=== PATIENT | male | born 1950 | race American Indian/Alaskan Native ===

== ENCOUNTER 2020-07-01 19:29 | Inpatient (IN) | payer MEDICARE ==
[2020-07-01] MEDS ORDERED: SODIUM CHLORIDE 0.9% 1000 ML IV SOLN IV ONE (20:59)
--- NOTE | 2020-07-01 21:39 | Emergency Department Report ---
ED General Adult HPI - General Stated complaint: POSS SEPSIS PUI?: No Time Seen by Provider: 07/01/20 20:49 Source: patient, EMS Mode of arrival: Stretcher Limitations: No Limitations - History of Present Illness Initial comments: Chief complaint: Elevated white count, hypotension HPI this is a 70-year-old male with history of paraplegia, dementia, sacral decubitus ulcer, peripheral vascular disease, diastolic heart failure, chronic respiratory failure, deficiency anemia, hypertension, pressure ulcer right hip, pressure ulcer left elbow, encephalopathy, osteomyelitis of the sacral vertebral region, who presents with leukocytosis. According to CBC obtained today at [facility] WBC 43.2. Patient was in his normal state of health. He states that he has not had any recent illness or symptoms. Hypotension noted per EMS. Patient received 1.5 L of normal saline via EMS. -: This morning Consistency: constant Improves with: none Worsens with: none Associated Symptoms: other (Known history of pressure ulcers, patient denies new symptoms.) - Related Data Home Medications Medication Instructions Recorded Confirmed Last Taken Acetaminophen [Aphen] 325 mg PO PRN PRN 07/02/20 07/02/20 Unknown Amlodipine Besylate [Norvasc] 10 mg PO DAILY 07/02/20 07/02/20 Unknown Ascorbic Acid/Ascorbate Sodium 500 mg PO DAILY 07/02/20 07/02/20 Unknown [Vit C-Alyce Hips 500 mg Chew Tb] Aspirin [Adult Aspirin] 81 mg PO DAILY 07/02/20 07/02/20 Unknown AtorvaSTATin [Lipitor] 10 mg PO QHS 07/02/20 07/02/20 Unknown Ciprofloxacin HCl 500 mg PO Q8HR 07/02/20 07/02/20 Unknown Diclofenac 1% [Diclofenac 1% 1 applic TP Q6HR 07/02/20 07/02/20 Unknown topical gel] Epoetin Baljeet [Procrit] 3,000 unit SQ QWEEK 07/02/20 07/02/20 Unknown Heparin Sodium,Porcine [Heparin 5,000 unit SUB-Q Q8HR 07/02/20 07/02/20 Unknown Sodium] Ipratropium/Albuterol Sulfate 1 ampul IH Q6HR 07/02/20 07/02/20 Unknown [DUONEB *Not for PRN Use*] Lispro Insulin [HumaLOG] 0 unit SQ ACHS 07/02/20 07/02/20 Unknown Multivit-Minerals/Folic Acid 1 tab PO DAILY 07/02/20 07/02/20 Unknown [Adult One Daily Multivit Tab] PANTOPRAZOLE SODIUM (nf) [Protonix 40 mg PO QAM 07/02/20 07/02/20 Unknown GRANULES] Zinc Sulfate 220 mg PO DAILY 07/02/20 07/02/20 Unknown allopurinoL [Zyloprim] 100 mg PO QDAY 07/02/20 07/02/20 Unknown hydrALAZINE [Apresoline TAB] 100 mg PO TID 07/02/20 07/02/20 Unknown Allergies Allergy/AdvReac Type Severity Reaction Status Date / Time No Known Allergies Allergy Verified 07/01/20 23:23 ED Review of Systems ROS: Stated complaint: POSS SEPSIS Other details as noted in HPI Comment: Unobtainable due to pts medical conditions (Limited due to dementia) ED Past Medical Hx - Past Medical History Previous Medical History?: Yes Hx Hypertension: Yes Hx Congestive Heart Failure: Yes Additional medical history: Pressure ulcers to sacrum, hip, knee - Surgical History Additional Surgical History: Unable to obtain - Medications Home Medications: Home Medications Medication Instructions Recorded Confirmed Last Taken Type Acetaminophen [Aphen] 325 mg PO PRN PRN 07/02/20 07/02/20 Unknown History Amlodipine Besylate [Norvasc] 10 mg PO DAILY 07/02/20 07/02/20 Unknown History Ascorbic Acid/Ascorbate Sodium 500 mg PO DAILY 07/02/20 07/02/20 Unknown History [Vit C-Alyce Hips 500 mg Chew Tb] Aspirin [Adult Aspirin] 81 mg PO DAILY 07/02/20 07/02/20 Unknown History AtorvaSTATin [Lipitor] 10 mg PO QHS 07/02/20 07/02/20 Unknown History Ciprofloxacin HCl 500 mg PO Q8HR 07/02/20 07/02/20 Unknown History Diclofenac 1% [Diclofenac 1% 1 applic TP Q6HR 07/02/20 07/02/20 Unknown History topical gel] Epoetin Baljeet [Procrit] 3,000 unit SQ QWEEK 07/02/20 07/02/20 Unknown History Heparin Sodium,Porcine [Heparin 5,000 unit SUB-Q Q8HR 07/02/20 07/02/20 Unknown History Sodium] Ipratropium/Albuterol Sulfate 1 ampul IH Q6HR 07/02/20 07/02/20 Unknown History [DUONEB *Not for PRN Use*] Lispro Insulin [HumaLOG] 0 unit SQ ACHS 07/02/20 07/02/20 Unknown History Multivit-Minerals/Folic Acid 1 tab PO DAILY 07/02/20 07/02/20 Unknown History [Adult One Daily Multivit Tab] PANTOPRAZOLE SODIUM (nf) [Protonix 40 mg PO QAM 07/02/20 07/02/20 Unknown History GRANULES] Zinc Sulfate 220 mg PO DAILY 07/02/20 07/02/20 Unknown History allopurinoL [Zyloprim] 100 mg PO QDAY 07/02/20 07/02/20 Unknown History hydrALAZINE [Apresoline TAB] 100 mg PO TID 07/02/20 07/02/20 Unknown History ED Physical Exam - General Limitations: Other (Dementia) General appearance: alert, in no apparent distress, other (Appears chronically ill right lateral decubitus) - Head Head exam: Present: atraumatic, normocephalic - Eye Eye exam: Present: normal appearance - ENT ENT exam: Present: mucous membranes moist - Neck Neck exam: Present: normal inspection, full ROM - Respiratory Respiratory exam: Present: normal lung sounds bilaterally. Absent: respiratory distress, wheezes, rales, stridor - Cardiovascular Cardiovascular Exam: Present: regular rate, normal rhythm, normal heart sounds. Absent: rubs, gallop - GI/Abdominal GI/Abdominal exam: Present: soft. Absent: distended, tenderness, guarding, rebound - Extremities Exam Extremities exam: Present: other (Contracted bilateral lower extremities) - Neurological Exam Neurological exam: Present: alert, other (Oriented to name and place) - Psychiatric Psychiatric exam: Present: depressed, flat affect - Skin Skin exam: Present: other (Bandage on left elbow, large bandage sacral region, patient covered in stool, unable to access wound due to copious malodorous stool) ED Course Vital Signs 07/01/20 07/01/20 07/01/20 21:15 21:31 21:45 Pulse Rate 84 91 H 92 H Respiratory 20 19 17 Rate Blood Pressure 102/44 99/55 99/51 O2 Sat by Pulse 100 100 100 Oximetry 07/01/20 07/01/20 07/01/20 22:01 22:15 22:18 Pulse Rate 92 H 87 81 Respiratory 19 19 25 H Rate Blood Pressure 110/53 97/41 97/41 O2 Sat by Pulse 100 100 100 Oximetry 07/01/20 07/01/20 07/01/20 22:31 22:32 22:45 Pulse Rate 87 91 H 87 Respiratory 19 19 20 Rate Blood Pressure 96/48 97/41 102/54 O2 Sat by Pulse 100 100 100 Oximetry 07/01/20 07/01/20 07/01/20 22:57 23:01 23:15 Pulse Rate 80 93 H 105 H Respiratory 19 19 20 Rate Blood Pressure 102/54 105/48 107/54 O2 Sat by Pulse 99 100 100 Oximetry 07/01/20 07/01/20 07/01/20 23:17 23:31 23:45 Pulse Rate 92 H 91 H 97 H Respiratory 18 17 20 Rate Blood Pressure 107/54 103/53 109/53 O2 Sat by Pulse 100 100 100 Oximetry 07/02/20 07/02/20 07/02/20 00:01 00:15 00:30 Pulse Rate 81 99 H 90 Respiratory 20 24 21 Rate Blood Pressure 110/49 96/54 93/48 O2 Sat by Pulse 100 74 L 100 Oximetry 07/02/20 07/02/20 07/02/20 00:45 01:00 01:15 Pulse Rate 88 109 H 97 H Respiratory 25 H 22 23 Rate Blood Pressure 106/46 112/55 108/45 O2 Sat by Pulse 100 100 100 Oximetry 07/02/20 07/02/20 07/02/20 01:30 01:45 02:00 Pulse Rate 97 H 113 H 91 H Respiratory 24 21 23 Rate Blood Pressure 110/59 104/44 103/49 O2 Sat by Pulse 100 98 99 Oximetry 07/02/20 02:15 Pulse Rate 108 H Respiratory 20 Rate Blood Pressure 103/57 O2 Sat by Pulse 100 Oximetry - Central Line Placement Left IJ Consent Obtained: verbal consent, emergent situation Time Out Performed: Yes Patient Placed on Monitor/Pulse Ox: Yes Prep: mask, gown, gloves Central Line Prep: Chlorhexidine scrub Local Anesthesia Used: Lidocaine 1% Ultrasound Used for Placement: Yes Patient Tolerated Procedure: other Complications: other (unable to access vein, no venous return, procedure discontinued without success) ED Medical Decision Making - Lab Data Result diagrams: 07/04/20 04:58 07/05/20 05:59 - EKG Data EKG shows normal: axis Rate: tachycardia - EKG Data 07/02/20 00:22 EKG obtained 0018 EKG interpreted by me Multifocal atrial tachycardia versus atrial fibrillation ventricular rate 100 bpm normal axis no ST elevation prolonged QTC - Radiology Data Radiology results: report reviewed Patient Name: EUGENIA LIZAMA Gender: Male Date of : 1950 Referring Provider: REDD DA SILVA Organization: [facility] Accession Number: [id number] Requested Date: July 01, 2020 20:49 Report Status: Final Requested Procedure: 1 Procedure Description: XR chest 1V ap Modality: XR Findings Reporting MD: Bryce Jacques Dictation Time: July 01, 2020 21:29 Syrup Mixer Assistant: Not available Zoo Director Date: CHEST 1 VIEW 07/01/2020 8:57 PM INDICATION / CLINICAL INFORMATION: hypotension sepsis. COMPARISON: None available. FINDINGS: The study is minimally limited secondary to rotation. SUPPORT DEVICES: None. HEART / MEDIASTINUM: Mild enlargement of the cardiac silhouette. LUNGS / PLEURA: Moderate pleural parenchymal opacification noted in the right lung base. The left lung field is clear. No pneumothorax. ADDITIONAL FINDINGS: Gas-filled and distended bowel loops are noted over the upper abdomen. IMPRESSION: 1. Moderate pleural parenchymal opacification in the right lung base likely represents pleural effusion and associated compressive atelectasis. Clinical correlation rule out a superimposed infectious process is recommended. Patient Name: EUGENIA LIZAMA Gender: Male Date of : 1950 Referring Provider: REDD DA SILVA Organization: [facility] Accession Number: [id number] Requested Date: July 01, 2020 22:27 Report Status: Final Requested Procedure: 1 Procedure Description: CT chest wo con Modality: CT Findings Reporting MD: Wojciech Freire Dictation Time: July 01, 2020 22:20 Syrup Mixer Assistant: Not available Zoo Director Date: CT CHEST, ABDOMEN, AND PELVIS WITHOUT CONTRAST INDICATION / CLINICAL INFORMATION: sepsis. TECHNIQUE: Axial CT images were obtained through the chest, abdomen, and pelvis without contrast. All CT scans at this location are performed using CT dose reduction for ALARA by means of automated exposure control. COMPARISON: None available. FINDINGS: HEART/VASCULAR STRUCTURES: Coronary artery calcification. MEDIASTINUM / CARMEN: No significant abnormality. PLEURA: Small bilateral effusions right greater than left. No pneumothorax. LUNGS: Moderate volume loss/atelectasis right chest. ADDITIONAL CHEST FINDINGS: None. LIVER: No significant abnormality. GALLBLADDER: Calcified gallstone. BILE DUCTS: No significant abnormality. PANCREAS: No significant abnormality. SPLEEN: No significant abnormality. ADRENALS: No significant abnormality. RIGHT KIDNEY / URETER: 7 mm nonobstructing stone at the renal pelvis. LEFT KIDNEY / URETER: No significant abnormality. STOMACH and SMALL BOWEL: Mild small bowel distention. COLON: Prominent colonic thickening is greater distally. APPENDIX: Nonvisualized. PERITONEUM: Mild ascites is scattered diffusely. No free air. No fluid collection. LYMPH NODES: No significant adenopathy. VASCULAR STRUCTURES: No significant abnormality. URINARY BLADDER: Symmetric bladder thickening. REPRODUCTIVE ORGANS: No significant abnormality. ADDITIONAL FINDINGS: Patient severely contracted limiting evaluation. Mild soft tissue anasarca. Sacral decubitus ulcer. 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 Mild cortical irregularity inferior sacrum on the right. IMPRESSION: 1. Chronic colitis greater distally. 2. Mild ascites, pleural fluid and soft tissue anasarca. 3. Calcified gallstone. [facility] [address] , [address] [place] [address] P [phone] F [phone] [facility] - Report exported on July 01, 2020 22: 58:66 -[id number] - Page 2 of 2 4. 7 mm nonobstructing left renal stone. 5. Sacral decubitus ulcer with suspected underlying osteomyelitis. - Medical Decision Making Septic Shock: severe leukocytosis and hypotension, IVF and IV abx corrected hypotension. Source: UTI, infected sacral decubitus Ulcer, colitis, broad- spectrum antibiotics cefepime vancomycin metronidazole initiated in the ED, first CVL at L left IJ attempt unsuccessful, patient refused further attempts at CVL insertion C. difficile colitis suspected: patient has had 3 large stools in the ED FRED: vasomotor nephropathy due to sepsis type 2 NSTEMI: correction of sepsis indicated Multifocal atrial tachycardia versus atrial fibrillation: Suspect rhythm will resolve once Sepsis and hypovolemia corrected Critical Care Time: Yes Critical care time in (mins) excluding proc time.: 40 Critical care attestation.: If time is entered above; I have spent that time in minutes in the direct care of this critically ill patient, excluding procedure time. 40 minutes of critical care time excluding procedures were used in the care of the patient. I came immediately to the bedside upon patient's arrival. I obtained history from EMS at the bedside. I discussed treatment plan with the nursing team members. I reviewed electronic record. I reviewed documentation from [facility]. Patient required multiple interventions and reassessments. ED Disposition Clinical Impression: Septic shock, Sacral osteomyelitis, Complicated urinary tract infection, FRED (acute kidney injury), NSTEMI (non-ST elevated myocardial infarction), C. difficile colitis, Multifocal atrial tachycardia Disposition: OP ADMIT IP TO THIS HOSP Is pt being admited?: Yes Does the pt Need Aspirin: No Condition: Fair
[2020-07-01 21:43] LABS: Hematocrit 28.3 % (35.5-45.6); Hemoglobin 8.5 gm/dl (11.8-15.2); Mean Corpuscular HGB Conc 30 % (32-34); Mean Corpuscular Volume 93 fl (84-94); Platelet Count 427 K/mm3 (140-440); Red Blood Count 3.05 M/mm3 (3.65-5.03); Red Cell Distribution Width 19.7 % (13.2-15.2)
[2020-07-01] MEDS ORDERED: CEFEPIME/NS 2 GM/100 ML 2 GM/100 ML BAG IV ONE (22:00)
[2020-07-01 22:08] LABS: Albumin 1.8 g/dL (3.9-5); Calcium 7.3 mg/dL (8.4-10.2)
--- NOTE | 2020-07-01 22:33 | XRay Report ---
CHEST 1 VIEW 07/01/2020 8:57 PM INDICATION / CLINICAL INFORMATION: hypotension sepsis. COMPARISON: None available. FINDINGS: The study is minimally limited secondary to rotation. SUPPORT DEVICES: None. HEART / MEDIASTINUM: Mild enlargement of the cardiac silhouette. LUNGS / PLEURA: Moderate pleural parenchymal opacification noted in the right lung base. The left miki g field is clear. No pneumothorax. ADDITIONAL FINDINGS: Gas-filled and distended bowel loops are noted over the upper abdomen. IMPRESSION: 1. Moderate pleural parenchymal opacification in the right lung base likely represents pleural effusi on and associated compressive atelectasis. Clinical correlation rule out a superimposed infectious pr ocess is recommended. Signer Name: Bryce Jacques MD Signed: 07/01/2020 10:29 PM Workstation Name: [id number]
--- NOTE | 2020-07-01 23:24 | Cat Scan Report ---
CT CHEST, ABDOMEN, AND PELVIS WITHOUT CONTRAST INDICATION / CLINICAL INFORMATION: sepsis. TECHNIQUE: Axial CT images were obtained through the chest, abdomen, and pelvis without contrast. All CT scans at this location are performed using CT dose reduction for ALARA by means of automated expo sure control. COMPARISON: None available. FINDINGS: HEART/VASCULAR STRUCTURES: Coronary artery calcification. MEDIASTINUM / CARMEN: No significant abnormality. PLEURA: Small bilateral effusions right greater than left. No pneumothorax. LUNGS: Moderate volume loss/atelectasis right chest. ADDITIONAL CHEST FINDINGS: None. LIVER: No significant abnormality. GALLBLADDER: Calcified gallstone. BILE DUCTS: No significant abnormality. PANCREAS: No significant abnormality. SPLEEN: No significant abnormality. ADRENALS: No significant abnormality. RIGHT KIDNEY / URETER: 7 mm nonobstructing stone at the renal pelvis. LEFT KIDNEY / URETER: No significant abnormality. STOMACH and SMALL BOWEL: Mild small bowel distention. COLON: Prominent colonic thickening is greater distally. APPENDIX: Nonvisualized. PERITONEUM: Mild ascites is scattered diffusely. No free air. No fluid collection. LYMPH NODES: No significant adenopathy. VASCULAR STRUCTURES: No significant abnormality. URINARY BLADDER: Symmetric bladder thickening. REPRODUCTIVE ORGANS: No significant abnormality. ADDITIONAL FINDINGS: Patient severely contracted limiting evaluation. Mild soft tissue anasarca. Sacr al decubitus ulcer. 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 Mild cortic al irregularity inferior sacrum on the right. IMPRESSION: 1. Chronic colitis greater distally. 2. Mild ascites, pleural fluid and soft tissue anasarca. 3. Calcified gallstone. 4. 7 mm nonobstructing left renal stone. 5. Sacral decubitus ulcer with suspected underlying osteomyelitis. Signer Name: Wojciech Freire MD Signed: 07/01/2020 11:20 PM Workstation Name: [id number]
[2020-07-02 00:04] LABS: Bacteria,Urine 2+ /HPF (Negative); Bilirubin,Urine NEG (Negative); Blood,Urine SM (Negative); Color,Urine Yellow (Yellow); Mucus,Urine 2+ /HPF; Urobilinogen,Urine < 2.0 mg/dL (<2.0)
[2020-07-02] MEDS ORDERED: SODIUM CHLORIDE 0.9% 1000 ML 1,000 ML IV ONE ×3 (00:05→13:15)
[2020-07-02] MEDS ORDERED: metroNIDAZOLE/NS 500 MG/100 ML 500 MG/100 ML BAG IV ONE (00:05)
[2020-07-02] MEDS ORDERED: VANCOMYCIN 1,250 MG in SODIUM CHLORIDE 0.9% 250ML 250 ML IV ONE (00:05)
[2020-07-02 00:12] LABS: WBC,Urine > 182.0 /HPF (0.0-6.0)
[2020-07-02] MEDS ORDERED: VANCOMYCIN PHARMACY TO DOSE IV SCH ×2 (01:00→06:00)
[2020-07-02] MEDS ORDERED: MAGNESIUM HYDROXIDE (MOM) ORAL LIQD UDC PO PRN (01:22)
[2020-07-02] MEDS ORDERED: ONDANSETRON 4 MG/2 ML INJ IV PRN (01:22)
[2020-07-02] MEDS ORDERED: MORPHINE 2 MG/1 ML INJ IV PRN (01:22)
[2020-07-02 01:31] LABS: RBC Morphology Normal; Total Cells Counted 100
--- NOTE | 2020-07-02 01:34 | History and Physical Report ---
History of Present Illness Date of examination: 07/02/20 Date of admission: 07/02/2020 Chief complaint: Abnormal labs History of present illness: 70-year-old -[place]ian male resident of care home with known history of paraplegia, dementia, sacral decubitus ulcer, peripheral vascular disease, diastolic heart failure, anemia, hypertension and osteomyelitis of the sacral vertebral region presenting in the emergency room today with abnormal labs from the care home. Patient was noted to have had leukocytosis of 43.2. Patient is noted good historian most of the history was gotten from the ER staff. En route to the hospital by EMS patient was said to be hypotensive and received 1.5 L of normal saline. Upon arrival in the emergency room patient received further boluses of IV fluid with some improvement in his blood pressure. During the course of his stay in the emergency room, patient had 4 large loose stools. Work-up in the emergency room today reveals leukocytosis of 47.5, hemoglobin of 8.5, CO2 of 10, troponin of 0.149, BUN of 51 and creatinine of 3.1. Urinalysis was significant for UTI. CT of the abdomen and pelvis reveals chronic colitis greater distally, mild ascites, pleural fluid and soft tissue anasarca. Calcified gallstone, 7 mm nonobstructive left renal stone. Sacral decubitus ulcer with suspected underlying osteomyelitis. Patient is being admitted with septic shock, acute renal failure, UTI and colitis. Past History Past Medical History: anemia, heart failure, other (Dementia, paraplegia, peripheral vascular disease, chronic respiratory failure, chronic anemia, chronic decubitus ulcers in the right hip and left elbow, osteomyelitis of the sacral vertebra) Past Surgical History: Other (Unable to obtain) Social history: other (Patient resides in a care home) Family history: other (Unknown) Medications and Allergies Allergies Allergy/AdvReac Type Severity Reaction Status Date / Time No Known Allergies Allergy Verified 07/01/20 23:23 Home Medications Medication Instructions Recorded Confirmed Last Taken Type Acetaminophen [Aphen] 325 mg PO PRN PRN 07/02/20 07/02/20 Unknown History Amlodipine Besylate [Norvasc] 10 mg PO DAILY 07/02/20 07/02/20 Unknown History Ascorbic Acid/Ascorbate Sodium 500 mg PO DAILY 07/02/20 07/02/20 Unknown History [Vit C-Alyce Hips 500 mg Chew Tb] Aspirin [Adult Aspirin] 81 mg PO DAILY 07/02/20 07/02/20 Unknown History AtorvaSTATin [Lipitor] 10 mg PO QHS 07/02/20 07/02/20 Unknown History Ciprofloxacin HCl 500 mg PO Q8HR 07/02/20 07/02/20 Unknown History Diclofenac 1% [Diclofenac 1% 1 applic TP Q6HR 07/02/20 07/02/20 Unknown History topical gel] Epoetin Baljeet [Procrit] 3,000 unit SQ QWEEK 07/02/20 07/02/20 Unknown History Heparin Sodium,Porcine [Heparin 5,000 unit SUB-Q Q8HR 07/02/20 07/02/20 Unknown History Sodium] Ipratropium/Albuterol Sulfate 1 ampul IH Q6HR 07/02/20 07/02/20 Unknown History [DUONEB *Not for PRN Use*] Lispro Insulin [HumaLOG] 0 unit SQ ACHS 07/02/20 07/02/20 Unknown History Multivit-Minerals/Folic Acid 1 tab PO DAILY 07/02/20 07/02/20 Unknown History [Adult One Daily Multivit Tab] PANTOPRAZOLE SODIUM (nf) [Protonix 40 mg PO QAM 07/02/20 07/02/20 Unknown History GRANULES] Zinc Sulfate 220 mg PO DAILY 07/02/20 07/02/20 Unknown History allopurinoL [Zyloprim] 100 mg PO QDAY 07/02/20 07/02/20 Unknown History hydrALAZINE [Apresoline TAB] 100 mg PO TID 07/02/20 07/02/20 Unknown History Active Meds: Active Medications Heparin Sodium (Porcine) (Heparin 5,000 Unit/1 Ml Vial) 5,000 unit SUB-Q Q8HR HARLEY Vancomycin HCl 1,250 mg/ (Sodium Chloride) 275 mls @ 183.333 mls/hr IV ONCE ONE; Protocol Stop: 07/02/20 01:34 Sodium Chloride (Nacl 0.9% 1000 Ml) 1,000 mls @ 999 mls/hr IV BOLUS ONE Stop: 07/02/20 02:13 Sodium Chloride (Nacl 0.9% 1000 Ml) 1,000 mls @ 150 mls/hr IV DIRECT HARLEY Magnesium Hydroxide (Magnesium Hydroxide (Mom) Oral Liqd Udc) 30 ml PO Q4H PRN PRN Reason: Constipation Morphine Sulfate (Morphine 2 Mg/1 Ml Inj) 2 mg IV Q4H PRN PRN Reason: Pain, Moderate (4-6) Ondansetron HCl (Ondansetron 4 Mg/2 Ml Inj) 4 mg IV Q8H PRN PRN Reason: Nausea And Vomiting Sodium Chloride (Sodium Chloride 0.9% 10 Ml Flush Syringe) 10 ml IV BID HARLEY Sodium Chloride (Sodium Chloride 0.9% 10 Ml Flush Syringe) 10 ml IV PRN PRN PRN Reason: LINE FLUSH Review of Systems ROS unobtainable: due to mental status Exam - Constitutional Vitals: Temp Pulse Resp BP Pulse Ox 88 25 H 106/46 100 07/02/20 00:45 07/02/20 00:45 07/02/20 00:45 07/02/20 00:45 General appearance: Present: no acute distress, well-nourished, other (Appears ill looking) - EENT Eyes: Present: PERRL, EOM intact. Absent: scleral icterus ENT: hearing intact, clear oral mucosa, dentition normal - Neck Neck: Present: supple, normal ROM - Respiratory Respiratory: bilateral: CTA - Cardiovascular Rhythm: regular Heart Sounds: Present: S1 & S2. Absent: gallop, systolic murmur, diastolic murmur, rub, click - Extremities Extremities: no ischemia, pulses intact, pulses symmetrical, No edema, normal temperature, normal color, abnormal (Contracted bilateral lower extremities) Peripheral Pulses: within normal limits - Abdominal General gastrointestinal: Present: soft, non-tender, non-distended, normal bowel sounds. Absent: mass - Integumentary Integumentary: Present: warm, dry, decreased turgor - Musculoskeletal Musculoskeletal: strength equal bilaterally - Psychiatric Psychiatric: cooperative, depressed, other (Flat affect) - Neurologic Neurologic: no focal deficits, moves all extremities, other (Alert and oriented x2 - only to name and place) - Additional findings Additional findings: Skin:Dressing on left elbow, large bandage sacral region, patient covered in stool, unable to access wound due to copious malodorous stool. HEART Score - HEART Score Troponin: Troponin T 0.149 ng/mL (0.00-0.029) H* 07/01/20 21:00 Results - Labs CBC & Chem 7: 07/01/20 21:00 07/01/20 21:00 Labs: Abnormal lab results 05/10/21 05/10/21 05/10/21 Range/Units 21:00 21:00 23:17 WBC 47.5 H* (4.5-11.0) K/mm3 RBC 3.05 L (3.65-5.03) M/mm3 Hgb 8.5 L (11.8-15.2) gm/dl Hct 28.3 L (35.5-45.6) % MCHC 30 L (32-34) % RDW 19.7 H (13.2-15.2) % Sodium 135 L (137-145) mmol/L Chloride 109.5 H (98-107) mmol/L Carbon Dioxide 10 L (22-30) mmol/L BUN 51 H (9-20) mg/dL Creatinine 3.1 H (0.8-1.3) mg/dL Glucose 114 H (75-100) mg/dL Calcium 7.3 L (8.4-10.2) mg/dL Troponin T 0.149 H* (0.00-0.029) ng/mL Total Protein 5.6 L (6.3-8.2) g/dL Albumin 1.8 L (3.9-5) g/dL Urine WBC (Auto) > 182.0 H (0.0-6.0) /HPF Assessment and Plan - Patient Problems (1) Septic shock Current Visit: Yes Status: Acute Plan to address problem: Possibly secondary to underlying UTI and colitis. Patient admitted and placed on IV fluid. He has been started on empiric IV antibiotics We will place consult to infectious disease for further evaluation and recommendation. Consult also placed to fast food shift lead. (2) Complicated urinary tract infection Current Visit: Yes Status: Acute Plan to address problem: We will continue on empiric IV antibiotics. Will await urine culture results. (3) FRED (acute kidney injury) Current Visit: Yes Status: Acute Plan to address problem: Possibly prerenal. We will continue on IV fluid hydration. Consult placed to nephrology for evaluation. We will monitor BUN and creatinine. (4) C. difficile colitis Current Visit: Yes Status: Acute (5) Multifocal atrial tachycardia Current Visit: Yes Status: Acute Plan to address problem: We will continue to monitor on telemetry. (6) NSTEMI (non-ST elevated myocardial infarction) Current Visit: Yes Status: Acute Plan to address problem: Possibly type II troponin leak Consult will be placed to cardiology for evaluation. (7) Sacral osteomyelitis Current Visit: Yes Status: Acute Plan to address problem: Possibly chronic. We will continue on empiric IV antibiotics. Will await infectious disease evaluation. (8) DVT prophylaxis Current Visit: Yes Status: Acute Plan to address problem: Patient placed on subcutaneous heparin. (9) Full code status Current Visit: Yes Status: Acute Plan to address problem: Patient is full code.
--- NOTE | 2020-07-02 01:50 | XRay Report ---
CHEST 1 VIEW 07/02/2020 12:36 AM INDICATION / CLINICAL INFORMATION: left IJ CVL insertion attempt. COMPARISON: Earlier the same day. FINDINGS: SUPPORT DEVICES: No central line. Negative for pneumothorax. HEART / MEDIASTINUM: No significant abnormality. LUNGS / PLEURA: Mild increasing atelectasis right base. No pleural effusion. ADDITIONAL FINDINGS: No significant additional findings. IMPRESSION: 1. Mild increasing atelectasis right base. 2. No pneumothorax. Signer Name: Wojciech Freire MD Signed: 07/02/2020 1:46 AM Workstation Name: [id number]
[2020-07-02 02:23] LABS: Chol/HDL Ratio 1.67 %
[2020-07-02] MEDS: SODIUM CHLORIDE 0.9% 1000 ML 1,000 ML IV SCH ×4 (04:00→20:42)
[2020-07-02] MEDS ORDERED: CEFEPIME/NS 2 GM/100 ML 2 GM/100 ML BAG IV SCH (06:00)
[2020-07-02] MEDS: HEPARIN 5,000 UNIT/1 ML VIAL SUB-Q SCH ×3 (07:18→21:00)
[2020-07-02] MEDS: metroNIDAZOLE/NS 500 MG/100 ML 500 MG/100 ML BAG IV SCH ×2 (07:19→15:43)
--- NOTE | 2020-07-02 08:32 | Consultation ---
History of Present Illness - Reason for Consult acute renal failure - History of Present Illness 70-year-old -Mexican male with a history of dementia coming in from a senior care facility presented to the emergency department secondary to worsening weakness. Was found to be hypotensive and requiring multiple IV fluid boluses both in transit as well as in the emergency department. Nephrology con sulted secondary to labs indicating acute kidney injury. Urinalysis indicating a urinary tract infection. He also apparently had issues with 2 loose bowel movements in the emergency department. CT scan of the abdomen and pelvis was done without contrast indicating evidence of what seems to be chronic colitis. Nephrology consulted again at this time for management of acute renal failure. 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 and left elbow, osteomyelitis of the sacral vertebra) Past Surgical History: Other (Unable to obtain) Social history: other (Patient resides in a senior care) Family history: other (Unknown) Medications and Allergies Allergies Allergy/AdvReac Type Severity Reaction Status Date / Time No Known Allergies Allergy Verified 07/01/20 23:23 Home Medications Medication Instructions Recorded Confirmed Last Taken Type Acetaminophen [Aphen] 325 mg PO PRN PRN 07/02/20 07/02/20 Unknown History Amlodipine Besylate [Norvasc] 10 mg PO DAILY 07/02/20 07/02/20 Unknown History Ascorbic Acid/Ascorbate Sodium 500 mg PO DAILY 07/02/20 07/02/20 Unknown History [Vit C-Alyce Hips 500 mg Chew Tb] Aspirin [Adult Aspirin] 81 mg PO DAILY 07/02/20 07/02/20 Unknown History AtorvaSTATin [Lipitor] 10 mg PO QHS 07/02/20 07/02/20 Unknown History Ciprofloxacin HCl 500 mg PO Q8HR 07/02/20 07/02/20 Unknown History Diclofenac 1% [Diclofenac 1% 1 applic TP Q6HR 07/02/20 07/02/20 Unknown History topical gel] Epoetin Baljeet [Procrit] 3,000 unit SQ QWEEK 07/02/20 07/02/20 Unknown History Heparin Sodium,Porcine [Heparin 5,000 unit SUB-Q Q8HR 07/02/20 07/02/20 Unknown History Sodium] Ipratropium/Albuterol Sulfate 1 ampul IH Q6HR 07/02/20 07/02/20 Unknown History [DUONEB *Not for PRN Use*] Lispro Insulin [HumaLOG] 0 unit SQ ACHS 07/02/20 07/02/20 Unknown History Multivit-Minerals/Folic Acid 1 tab PO DAILY 07/02/20 07/02/20 Unknown History [Adult One Daily Multivit Tab] PANTOPRAZOLE SODIUM (nf) [Protonix 40 mg PO QAM 07/02/20 07/02/20 Unknown History GRANULES] Zinc Sulfate 220 mg PO DAILY 07/02/20 07/02/20 Unknown History allopurinoL [Zyloprim] 100 mg PO QDAY 07/02/20 07/02/20 Unknown History hydrALAZINE [Apresoline TAB] 100 mg PO TID 07/02/20 07/02/20 Unknown History Active Meds: Active Medications Heparin Sodium (Porcine) (Heparin 5,000 Unit/1 Ml Vial) 5,000 unit SUB-Q Q8HR HARLEY Last Admin: 07/02/20 07:18 Dose: 5,000 unit Documented by: Sodium Chloride (Nacl 0.9% 1000 Ml) 1,000 mls @ 150 mls/hr IV DIRECT HARLEY Last Admin: 07/02/20 04:00 Dose: 150 mls/hr Documented by: Metronidazole (Flagyl 500 Mg/100 Ml) 500 mg in 100 mls @ 100 mls/hr IV Q8H HARLEY; Protocol Last Admin: 07/02/20 07:19 Dose: 100 mls/hr Documented by: Cefepime HCl (Cefepime/Ns 2 Gm/100 Ml) 2 gm in 100 mls @ 200 mls/hr IV Q24H HARLEY; Protocol Magnesium Hydroxide (Magnesium Hydroxide (Mom) Oral Liqd Udc) 30 ml PO Q4H PRN PRN Reason: Constipation Morphine Sulfate (Morphine 2 Mg/1 Ml Inj) 2 mg IV Q4H PRN PRN Reason: Pain, Moderate (4-6) Ondansetron HCl (Ondansetron 4 Mg/2 Ml Inj) 4 mg IV Q8H PRN PRN Reason: Nausea And Vomiting Sodium Chloride (Sodium Chloride 0.9% 10 Ml Flush Syringe) 10 ml IV BID HARLEY Sodium Chloride (Sodium Chloride 0.9% 10 Ml Flush Syringe) 10 ml IV PRN PRN PRN Reason: LINE FLUSH Review of Systems ROS unobtainable: due to mental status Exam - Vital Signs Vital signs: Vital Signs Pulse Resp BP Pulse Ox 84 20 102/44 100 07/01/20 21:15 07/01/20 21:15 07/01/20 21:15 07/01/20 21:15 - General Appearance General appearance: well-developed EENT: ATNC Neck: Present: neck supple Respiratory: Clear to Ascultation Heart: regular Gastrointestinal: Present: normal Integumentary: no rash Neurologic: other (Oriented to person, place) Musculoskeletal: Present: deferred Psychiatric: cooperative Results - Lab Results 07/01/20 21:00 07/01/20 21:00 Most recent lab results Calcium 7.3 mg/dL (8.4-10.2) L 07/01/20 21:00 - Image Kidney/bladder ultrasound: pending Assessment and Plan - Patient Problems (1) FRED (acute kidney injury) Current Visit: Yes Status: Acute Plan to address problem: Likely in the setting of prerenal injury in the setting of urinary tract infect ion and possible exacerbation of colitis with previous history of C. difficile colitis per nursing staff. Agree with current regimen with aggressive IV fluid hydration and hemodynamic management. Antibiotics to target urinary tract infection. Will obtain a renal ultrasound along with urine electrolytes for further evaluation. Please avoid all nephrotoxins at this time given his acute kidney injury. We will be monitoring carefully. We will need to make sure that his renal toe pressures remain above 65 mmHg which to have been at this time. He has not required pressors at this time. (2) Metabolic acidosis Current Visit: Yes Status: Acute Plan to address problem: In the setting of acute kidney injury with questionable history of diarrheal symptoms and apparently finding of colitis that is chronic in nature on his most recent CT scan. We are maintaining patient on IV fluid hydration and would recommend rechecking labs as anticipate improvement with improved hydration status. (3) C. difficile colitis Current Visit: Yes Status: Acute Plan to address problem: C. difficile studies are pending at this time. She is on contact precaution at this time. Per nursing staff since coming up to be ICU he really has not had significant bowel movement. CT scan of the abdomen did show what was read as chronic colitis. (4) Complicated urinary tract infection Current Visit: Yes Status: Acute Plan to address problem: Please ensure that antibiotics are dosed appropriately for his decreased renal function.
--- NOTE | 2020-07-02 10:26 | Progress Note ---
Assessment and Plan Assessment and plan: Sepsis. Acute kidney injury. Urinary tract infection. Colitis. Metabolic acidosis. Elevated troponin. 07/02/2020. Continue IV fluid hydration. Etiology of acute kidney injury likely secondary to vasomotor nephropathy/prerenal injury. Continue aggressive IV fluid hydration. Follow-up renal ultrasound. Nephrology following. Follow-up stool studies for colitis. Await ID recommendations for IV antibiotics. Consult cardiology for elevated troponin. History Interval history: 70-year-old -[place] male with a history of dementia coming in from a [facility] facility presented to the emergency department secondary to worsening weakness. Was found to be hypotensive and requiring multiple IV fluid boluses both in transit as well as in the emergency department. Nephrology consulted secondary to labs indicating acute kidney injury. Urinalysis indicating a urinary tract infection. He also apparently had issues with 2 loose bowel movements in the emergency department. CT scan of the abdomen and pelvis was done without contrast indicating evidence of what seems to be chronic colitis. Nephrology consulted again at this time for management of acute renal failure. Hospitalist Physical - Constitutional Vitals: Temp Pulse Resp BP Pulse Ox 97.4 F L 104 H 20 90/50 100 07/02/20 04:00 07/02/20 09:49 07/02/20 08:00 07/02/20 08:00 07/02/20 08:00 General appearance: Present: no acute distress, well-nourished, other (Appears ill looking) - EENT Eyes: Present: PERRL, EOM intact ENT: hearing intact, clear oral mucosa, dentition normal - Neck Neck: Present: supple, normal ROM - Respiratory Respiratory effort: normal Respiratory: bilateral: CTA - Cardiovascular Rhythm: regular Heart Sounds: Present: S1 & S2. Absent: gallop, rub - Extremities Extremities: no ischemia, No edema, Full ROM - Abdominal General gastrointestinal: soft, non-tender, non-distended, normal bowel sounds - Integumentary Integumentary: Present: clear, warm, dry - Neurologic Neurologic: CNII-XII intact, moves all extremities HEART Score - HEART Score Troponin: Troponin T 0.149 ng/mL (0.00-0.029) H* 07/01/20 21:00 Results - Labs CBC & Chem 7: 07/01/20 21:00 07/01/20 21:00 Labs: Laboratory Last Values WBC 47.5 K/mm3 (4.5-11.0) H* 07/01/20 21:00 RBC 3.05 M/mm3 (3.65-5.03) L 07/01/20 21:00 Hgb 8.5 gm/dl (11.8-15.2) L 07/01/20 21:00 Hct 28.3 % (35.5-45.6) L 07/01/20 21:00 MCV 93 fl (84-94) 07/01/20 21:00 MCH 28 pg (28-32) 07/01/20 21:00 MCHC 30 % (32-34) L 07/01/20 21:00 RDW 19.7 % (13.2-15.2) H 07/01/20 21:00 Plt Count 427 K/mm3 (140-440) 07/01/20 21:00 Add Manual Diff Complete 07/01/20 21:00 Total Counted 100 07/01/20 21:00 Seg Neutrophils % Log Sorting Supervisor 07/01/20 21:00 Seg Neuts % (Manual) 90.0 % (40.0-70.0) H 07/01/20 21:00 Lymphocytes % (Manual) 6.0 % (13.4-35.0) L 07/01/20 21:00 Monocytes % (Manual) 4.0 % (0.0-7.3) 07/01/20 21:00 Nucleated RBC % Not Reportable 07/01/20 21:00 Seg Neutrophils # Man 42.8 K/mm3 (1.8-7.7) H 07/01/20 21:00 Band Neutrophils # 0.0 K/mm3 07/01/20 21:00 Lymphocytes # (Manual) 2.9 K/mm3 (1.2-5.4) 07/01/20 21:00 Abs React Lymphs (Man) 0.0 K/mm3 07/01/20 21:00 Monocytes # (Manual) 1.9 K/mm3 (0.0-0.8) H 07/01/20 21:00 Eosinophils # (Manual) 0.0 K/mm3 (0.0-0.4) 07/01/20 21:00 Basophils # (Manual) 0.0 K/mm3 (0.0-0.1) 07/01/20 21:00 Metamyelocytes # 0.0 K/mm3 07/01/20 21:00 Myelocytes # 0.0 K/mm3 07/01/20 21:00 Promyelocytes # 0.0 K/mm3 07/01/20 21:00 Blast Cells # 0.0 K/mm3 07/01/20 21:00 WBC Morphology Not Reportable 07/01/20 21:00 Hypersegmented Neuts Not Reportable 07/01/20 21:00 Hyposegmented Neuts Not Reportable 07/01/20 21:00 Hypogranular Neuts Not Reportable 07/01/20 21:00 Smudge Cells Not Reportable 07/01/20 21:00 Toxic Granulation Not Reportable 07/01/20 21:00 Toxic Vacuolation Not Reportable 07/01/20 21:00 Dohle Bodies Not Reportable 07/01/20 21:00 Pelger-Huet Anomaly Not Reportable 07/01/20 21:00 Jeanna Rods Not Reportable 07/01/20 21:00 Platelet Estimate Not Reportable 07/01/20 21:00 Clumped Platelets Not Reportable 07/01/20 21:00 Plt Clumps, EDTA Not Reportable 07/01/20 21:00 Large Platelets Not Reportable 07/01/20 21:00 Giant Platelets Not Reportable 07/01/20 21:00 Platelet Satelliting Not Reportable 07/01/20 21:00 Plt Morphology Comment Not Reportable 07/01/20 21:00 RBC Morphology Normal 07/01/20 21:00 Dimorphic RBCs Not Reportable 07/01/20 21:00 Polychromasia Not Reportable 07/01/20 21:00 Hypochromasia Not Reportable 07/01/20 21:00 Poikilocytosis Not Reportable 07/01/20 21:00 Anisocytosis Not Reportable 07/01/20 21:00 Microcytosis Not Reportable 07/01/20 21:00 Macrocytosis Not Reportable 07/01/20 21:00 Spherocytes Not Reportable 07/01/20 21:00 Pappenheimer Bodies Not Reportable 07/01/20 21:00 Sickle Cells Not Reportable 07/01/20 21:00 Target Cells Not Reportable 07/01/20 21:00 Tear Drop Cells Not Reportable 07/01/20 21:00 Ovalocytes Not Reportable 07/01/20 21:00 Helmet Cells Not Reportable 07/01/20 21:00 [place] Bodies Not Reportable 07/01/20 21:00 [place] Rings Not Reportable 07/01/20 21:00 Jennifer Cells Not Reportable 07/01/20 21:00 Bite Cells Not Reportable 07/01/20 21:00 Crenated Cell Not Reportable 07/01/20 21:00 Elliptocytes Not Reportable 07/01/20 21:00 Acanthocytes (Spur) Not Reportable 07/01/20 21:00 Rouleaux Not Reportable 07/01/20 21:00 Hemoglobin C Crystals Not Reportable 07/01/20 21:00 Schistocytes Not Reportable 07/01/20 21:00 Malaria parasites Not Reportable 07/01/20 21:00 Raheem Bodies Not Reportable 07/01/20 21:00 Hem Pathologist Commnt Sent to pathology 07/01/20 21:00 Sodium 135 mmol/L (137-145) L 07/01/20 21:00 Potassium 3.9 mmol/L (3.6-5.0) 07/01/20 21:00 Chloride 109.5 mmol/L (98-107) H 07/01/20 21:00 Carbon Dioxide 10 mmol/L (22-30) L 07/01/20 21:00 Anion Gap 19 mmol/L 07/01/20 21:00 BUN 51 mg/dL (9-20) H 07/01/20 21:00 Creatinine 3.1 mg/dL (0.8-1.3) H 07/01/20 21:00 Estimated GFR 24 ml/min 07/01/20 21:00 BUN/Creatinine Ratio 16 % 07/01/20 21:00 Glucose 114 mg/dL (75-100) H 07/01/20 21:00 Lactic Acid 1.60 mmol/L (0.7-2.0) 07/01/20 23:35 Calcium 7.3 mg/dL (8.4-10.2) L 07/01/20 21:00 Total Bilirubin 0.20 mg/dL (0.1-1.2) 07/01/20 21:00 AST 27 units/L (5-40) 07/01/20 21:00 ALT 18 units/L (7-56) 07/01/20 21:00 Alkaline Phosphatase 128 units/L (35-129) 07/01/20 21:00 Troponin T 0.149 ng/mL (0.00-0.029) H* 07/01/20 21:00 Total Protein 5.6 g/dL (6.3-8.2) L 07/01/20 21:00 Albumin 1.8 g/dL (3.9-5) L 07/01/20 21:00 Albumin/Globulin Ratio 0.5 % 07/01/20 21:00 Triglycerides 38 mg/dL (2-149) 07/01/20 21:00 Cholesterol 62 mg/dL (50-199) 07/01/20 21:00 LDL Cholesterol Direct 19 mg/dL (50-130) L 07/01/20 21:00 HDL Cholesterol 37 mg/dL (40-59) L 07/01/20 21:00 Cholesterol/HDL Ratio 1.67 % 07/01/20 21:00 Urine Color Yellow (Yellow) 07/01/20 23:17 Urine Turbidity Turbid (Clear) 07/01/20 23:17 Urine pH 6.0 (5.0-7.0) 07/01/20 23:17 Ur Specific [place] 1.012 (1.003-1.030) 07/01/20 23:17 Urine Protein 100 mg/dl mg/dL (Negative) 07/01/20 23:17 Urine Glucose (UA) Neg mg/dL (Negative) 07/01/20 23:17 Urine Ketones Neg mg/dL (Negative) 07/01/20 23:17 Urine Blood Sm (Negative) 07/01/20 23:17 Urine Nitrite Pos (Negative) 07/01/20 23:17 Urine Bilirubin Neg (Negative) 07/01/20 23:17 Urine Urobilinogen < 2.0 mg/dL (<2.0) 07/01/20 23:17 Ur Leukocyte Esterase Lg (Negative) 07/01/20 23:17 Urine WBC (Auto) > 182.0 /HPF (0.0-6.0) H 07/01/20 23:17 Urine RBC (Auto) 42.0 /HPF (0.0-6.0) 07/01/20 23:17 U Epithel Cells (Auto) 6.0 /HPF (0-13.0) 07/01/20 23:17 Urine Bacteria (Auto) 2+ /HPF (Negative) 07/01/20 23:17 Urine WBC Clumps 3+ /HPF 07/01/20 23:17 Urine Mucus 2+ /HPF 07/01/20 23:17 Urine Yeast (Budding) 3+ /HPF 07/01/20 23:17 Microbiology: Microbiology 07/01/20 21:00 Peripheral/Venous Blood Culture - Preliminary Culture in Progress 07/01/20 21:09 Peripheral/Venous Blood Culture - Preliminary Culture in Progress Active Medications - Current Medications Current Medications: Generic Name Dose Route Start Last Admin Trade Name Freq PRN Reason Stop Dose Admin Heparin Sodium (Porcine) 5,000 unit 07/02/20 06:00 07/02/20 07:18 Heparin 5,000 Unit/1 Ml Vial SUB-Q 5,000 unit Q8HR HARLEY Administration Sodium Chloride 1,000 mls @ 150 mls/hr 07/02/20 01:30 07/02/20 10:11 Nacl 0.9% 1000 Ml IV 150 mls/hr DIRECT HARLEY Administration Metronidazole 500 mg in 100 mls @ 100 mls/hr 07/02/20 08:00 07/02/20 07:19 Flagyl 500 Mg/100 Ml IV 100 mls/hr Q8H HAR[facility] Administration Protocol Cefepime HCl 2 gm in 100 mls @ 200 mls/hr 07/02/20 22:00 Cefepime/Ns 2 Gm/100 Ml IV Q24H HARLEY Protocol Magnesium Hydroxide 30 ml 07/02/20 01:22 Magnesium Hydroxide (Mom) Oral Liqd Udc PO Q4H PRN Constipation Morphine Sulfate 2 mg 07/02/20 01:22 Morphine 2 Mg/1 Ml Inj IV Q4H PRN Pain, Moderate (4-6) Ondansetron HCl 4 mg 07/02/20 01:22 Ondansetron 4 Mg/2 Ml Inj IV Q8H PRN Nausea And Vomiting Sodium Chloride 10 ml 07/02/20 10:00 07/02/20 09:10 Sodium Chloride 0.9% 10 Ml Flush Syringe IV Not Given BID HARLEY Sodium Chloride 10 ml 07/02/20 01:22 Sodium Chloride 0.9% 10 Ml Flush Syringe IV PRN PRN LINE FLUSH
--- NOTE | 2020-07-02 12:01 | Consultation ---
History of Present Illness Consult date: 07/02/20 Requesting physician: CATY LY Reason for consult: other (Septic Shock) History of present illness: PULMONARY/CCM CONSULT NOTE (Full dictation # [id number]) Please see dictated notes for full details Past History Past Medical History: anemia, heart failure, other (Dementia, paraplegia, peripheral vascular disease, chronic respiratory failure, chronic anemia, chronic decubitus ulcers in the right hip and left elbow, osteomyelitis of the sacral vertebra) Past Surgical History: Other (Unable to obtain) Social history: other (Patient resides in a assisted) Family history: other (Unknown) Medications and Allergies Allergies Allergy/AdvReac Type Severity Reaction Status Date / Time No Known Allergies Allergy Verified 07/01/20 23:23 Home Medications Medication Instructions Recorded Confirmed Last Taken Type Acetaminophen [Aphen] 325 mg PO PRN PRN 07/02/20 07/02/20 Unknown History Amlodipine Besylate [Norvasc] 10 mg PO DAILY 07/02/20 07/02/20 Unknown History Ascorbic Acid/Ascorbate Sodium 500 mg PO DAILY 07/02/20 07/02/20 Unknown History [Vit C-Alyce Hips 500 mg Chew Tb] Aspirin [Adult Aspirin] 81 mg PO DAILY 07/02/20 07/02/20 Unknown History AtorvaSTATin [Lipitor] 10 mg PO QHS 07/02/20 07/02/20 Unknown History Ciprofloxacin HCl 500 mg PO Q8HR 07/02/20 07/02/20 Unknown History Diclofenac 1% [Diclofenac 1% 1 applic TP Q6HR 07/02/20 07/02/20 Unknown History topical gel] Epoetin Baljeet [Procrit] 3,000 unit SQ QWEEK 07/02/20 07/02/20 Unknown History Heparin Sodium,Porcine [Heparin 5,000 unit SUB-Q Q8HR 07/02/20 07/02/20 Unknown History Sodium] Ipratropium/Albuterol Sulfate 1 ampul IH Q6HR 07/02/20 07/02/20 Unknown History [DUONEB *Not for PRN Use*] Lispro Insulin [HumaLOG] 0 unit SQ ACHS 07/02/20 07/02/20 Unknown History Multivit-Minerals/Folic Acid 1 tab PO DAILY 07/02/20 07/02/20 Unknown History [Adult One Daily Multivit Tab] PANTOPRAZOLE SODIUM (nf) [Protonix 40 mg PO QAM 07/02/20 07/02/20 Unknown History GRANULES] Zinc Sulfate 220 mg PO DAILY 07/02/20 07/02/20 Unknown History allopurinoL [Zyloprim] 100 mg PO QDAY 07/02/20 07/02/20 Unknown History hydrALAZINE [Apresoline TAB] 100 mg PO TID 07/02/20 07/02/20 Unknown History Active Meds: Active Medications Heparin Sodium (Porcine) (Heparin 5,000 Unit/1 Ml Vial) 5,000 unit SUB-Q Q8HR [facility] Last Admin: 07/02/20 07:18 Dose: 5,000 unit Documented by: Sodium Chloride (Nacl 0.9% 1000 Ml) 1,000 mls @ 150 mls/hr IV DIRECT [facility] Last Admin: 07/02/20 10:11 Dose: 150 mls/hr Documented by: Metronidazole (Flagyl 500 Mg/100 Ml) 500 mg in 100 mls @ 100 mls/hr IV Q8H [facility]; Protocol Last Admin: 07/02/20 07:19 Dose: 100 mls/hr Documented by: Cefepime HCl (Cefepime/Ns 2 Gm/100 Ml) 2 gm in 100 mls @ 200 mls/hr IV Q24H [facility]; Protocol Magnesium Hydroxide (Magnesium Hydroxide (Mom) Oral Liqd Udc) 30 ml PO Q4H PRN PRN Reason: Constipation Morphine Sulfate (Morphine 2 Mg/1 Ml Inj) 2 mg IV Q4H PRN PRN Reason: Pain, Moderate (4-6) Ondansetron HCl (Ondansetron 4 Mg/2 Ml Inj) 4 mg IV Q8H PRN PRN Reason: Nausea And Vomiting Sodium Chloride (Sodium Chloride 0.9% 10 Ml Flush Syringe) 10 ml IV BID [facility] Last Admin: 07/02/20 09:10 Dose: Not Given Documented by: Sodium Chloride (Sodium Chloride 0.9% 10 Ml Flush Syringe) 10 ml IV PRN PRN PRN Reason: LINE FLUSH Physical Examination Vital signs: Vital Signs Pulse Resp BP Pulse Ox 84 20 102/44 100 07/01/20 21:15 07/01/20 21:15 07/01/20 21:15 07/01/20 21:15 Results - Laboratory Findings CBC and BMP: 07/01/20 21:00 07/01/20 21:00 Abnormal lab findings: Abnormal Labs 07/01/20 07/01/20 07/01/20 21:00 21:00 23:17 WBC 47.5 H* RBC 3.05 L Hgb 8.5 L Hct 28.3 L MCHC 30 L RDW 19.7 H Seg Neuts % (Manual) 90.0 H Lymphocytes % (Manual) 6.0 L Seg Neutrophils # Man 42.8 H Monocytes # (Manual) 1.9 H Sodium 135 L Chloride 109.5 H Carbon Dioxide 10 L BUN 51 H Creatinine 3.1 H Glucose 114 H Calcium 7.3 L Troponin T 0.149 H* Total Protein 5.6 L Albumin 1.8 L LDL Cholesterol Direct 19 L HDL Cholesterol 37 L Urine WBC (Auto) > 182.0 H
--- NOTE | 2020-07-02 12:36 | Consultation ---
History of Present Illness - Reason for Consult Consult date: 07/02/20 Severe sepsis Requesting physician: CATY LY - History of Present Illness 70-year-old male with history of paraplegia, dementia, chronic sacral decubitus ulcer, peripheral vascular disease, CHF, hypertension, vertebral sacral osteomyelitis admitted on 07/02/2020 [facility] Patient WBC was found to be 43.2. Patient is not the best historian. Upon EMS evaluation, blood pressure was low large stools. On arrival, temperature 0.8, HR 84, RR 20, BP 102/44, O2 sat WBC 47.5. Hemoglobin 8.5. Platelets 4 troponin 0.1. Lactate 1.7. Creatinine 3.1. Urinalysis 2 WBCs and large leukocyte esterase. CT abdomen and chest shows chronic colitis, mild ascites renal nonobstructing stone, sacral decubitus osteomyelitis. Blood culture 07/02/2020 pending. Review of Systems: Unable to obtain patient historian Past History Past Medical History: anemia, heart failure, other (Dementia, paraplegia, peripheral vascular disease, chronic respiratory failure, chronic anemia, chronic decubitus ulcers in the right hip and left elbow, osteomyelitis of the sacral vertebra) Past Surgical History: Other (Unable to obtain) Social history: other (Patient resides in a prison) Family history: other (Unknown) Medications and Allergies Allergies Allergy/AdvReac Type Severity Reaction Status Date / Time No Known Allergies Allergy Verified 07/01/20 23:23 Home Medications Medication Instructions Recorded Confirmed Last Taken Type Acetaminophen [Aphen] 325 mg PO PRN PRN 07/02/20 07/02/20 Unknown History Amlodipine Besylate [Norvasc] 10 mg PO DAILY 07/02/20 07/02/20 Unknown History Ascorbic Acid/Ascorbate Sodium 500 mg PO DAILY 07/02/20 07/02/20 Unknown History [Vit C-Alyce Hips 500 mg Chew Tb] Aspirin [Adult Aspirin] 81 mg PO DAILY 07/02/20 07/02/20 Unknown History AtorvaSTATin [Lipitor] 10 mg PO QHS 07/02/20 07/02/20 Unknown History Ciprofloxacin HCl 500 mg PO Q8HR 07/02/20 07/02/20 Unknown History Diclofenac 1% [Diclofenac 1% 1 applic TP Q6HR 07/02/20 07/02/20 Unknown History topical gel] Epoetin Baljeet [Procrit] 3,000 unit SQ QWEEK 07/02/20 07/02/20 Unknown History Heparin Sodium,Porcine [Heparin 5,000 unit SUB-Q Q8HR 07/02/20 07/02/20 Unknown History Sodium] Ipratropium/Albuterol Sulfate 1 ampul IH Q6HR 07/02/20 07/02/20 Unknown History [DUONEB *Not for PRN Use*] Lispro Insulin [HumaLOG] 0 unit SQ ACHS 07/02/20 07/02/20 Unknown History Multivit-Minerals/Folic Acid 1 tab PO DAILY 07/02/20 07/02/20 Unknown History [Adult One Daily Multivit Tab] PANTOPRAZOLE SODIUM (nf) [Protonix 40 mg PO QAM 07/02/20 07/02/20 Unknown History GRANULES] Zinc Sulfate 220 mg PO DAILY 07/02/20 07/02/20 Unknown History allopurinoL [Zyloprim] 100 mg PO QDAY 07/02/20 07/02/20 Unknown History hydrALAZINE [Apresoline TAB] 100 mg PO TID 07/02/20 07/02/20 Unknown History Active Meds: Active Medications Famotidine (Famotidine 20 Mg Tab) 20 mg PO QHS [facility] Heparin Sodium (Porcine) (Heparin 5,000 Unit/1 Ml Vial) 5,000 unit SUB-Q Q8HR [facility] Last Admin: 07/02/20 07:18 Dose: 5,000 unit Documented by: Sodium Chloride (Nacl 0.9% 1000 Ml) 1,000 mls @ 150 mls/hr IV DIRECT [facility] Last Admin: 07/02/20 10:11 Dose: 150 mls/hr Documented by: Metronidazole (Flagyl 500 Mg/100 Ml) 500 mg in 100 mls @ 100 mls/hr IV Q8H [facility]; Protocol Last Admin: 07/02/20 07:19 Dose: 100 mls/hr Documented by: Cefepime HCl (Cefepime/Ns 2 Gm/100 Ml) 2 gm in 100 mls @ 200 mls/hr IV Q24H [facility]; Protocol Levofloxacin/Dextrose (Levaquin 500mg/100ml) 500 mg in 100 mls @ 100 mls/hr IV Q48H [facility]; Protocol Stop: 07/06/20 13:59 Sodium Chloride (Nacl 0.9% 1000 Ml) 1,000 mls @ 999 mls/hr IV B[facility] ONE Stop: 07/02/20 13:27 Magnesium Hydroxide (Magnesium Hydroxide (Mom) Oral Liqd Udc) 30 ml PO Q4H PRN PRN Reason: Constipation Morphine Sulfate (Morphine 2 Mg/1 Ml Inj) 2 mg IV Q4H PRN PRN Reason: Pain, Moderate (4-6) Ondansetron HCl (Ondansetron 4 Mg/2 Ml Inj) 4 mg IV Q8H PRN PRN Reason: Nausea And Vomiting Sodium Chloride (Sodium Chloride 0.9% 10 Ml Flush Syringe) 10 ml IV BID [facility] Last Admin: 07/02/20 09:10 Dose: Not Given Documented by: Sodium Chloride (Sodium Chloride 0.9% 10 Ml Flush Syringe) 10 ml IV PRN PRN PRN Reason: LINE FLUSH Physical Examination - Physical Exam Narrative exam: General appearance: Alert in NAD Eyes: anicteric sclerae, moist conjunctivae; no lid-lag; PERRLA HENT: Normocephalic, Atraumatic; normal external ears, nares open, oropharynx limited, partially edentulous Neck: supple, tracheal midline, no JVD Lungs: CTA, with normal respiratory effort and no intercostal retractions CV: RRR no murmur Abdomen: Soft, non-tender; no masses or hepatosplenomegaly Extremities: no edema, no cyanosis Skin: Sacral area not examined Psych: no agitated Neuro: alert follows simple commands - Constitutional Vitals: Vital Signs Temp Pulse Resp BP Pulse Ox 97.4 F L 111 H 26 H 88/45 100 07/02/20 04:00 07/02/20 11:00 07/02/20 11:00 07/02/20 11:00 07/02/20 11:00 Temperature -Last 24 Hours Temperature 97.4 F Temperature 96.8 F Results - Labs CBC & Chem 7: 07/01/20 21:00 07/01/20 21:00 Labs: Abnormal lab results 07/01/20 07/01/20 07/01/20 Range/Units 21:00 21:00 23:17 WBC 47.5 H* (4.5-11.0) K/mm3 RBC 3.05 L (3.65-5.03) M/mm3 Hgb 8.5 L (11.8-15.2) gm/dl Hct 28.3 L (35.5-45.6) % MCHC 30 L (32-34) % RDW 19.7 H (13.2-15.2) % Seg Neuts % (Manual) 90.0 H (40.0-70.0) % Lymphocytes % (Manual) 6.0 L (13.4-35.0) % Seg Neutrophils # Man 42.8 H (1.8-7.7) K/mm3 Monocytes # (Manual) 1.9 H (0.0-0.8) K/mm3 Sodium 135 L (137-145) mmol/L Chloride 109.5 H (98-107) mmol/L Carbon Dioxide 10 L (22-30) mmol/L BUN 51 H (9-20) mg/dL Creatinine 3.1 H (0.8-1.3) mg/dL Glucose 114 H (75-100) mg/dL Calcium 7.3 L (8.4-10.2) mg/dL Troponin T 0.149 H* (0.00-0.029) ng/mL Total Protein 5.6 L (6.3-8.2) g/dL Albumin 1.8 L (3.9-5) g/dL LDL Cholesterol Direct 19 L (50-130) mg/dL HDL Cholesterol 37 L (40-59) mg/dL Urine WBC (Auto) > 182.0 H (0.0-6.0) /HPF Assessment and Plan Cultures: Blood culture 07/02/2020 pending. Assessment: 70-year-old male with history of paraplegia, dementia, chronic sacral decubitus ulcer, peripheral vascular disease, CHF, hypertension, vertebral sacral osteomyelitis admitted on 07/02/2020 [facility]. WBC was found to be 43.2, afebrile today patient stools: #Severe sepsis: Present on admission tachycardia, hypotension, leukocytosis with leukemoid reaction, FRED, likely secondary to colitis suspect C. difficile colitis +/- UTI. #Colitis: CT shows chronic colitis. Patient with large liquid bowel movements in route to the hospital x 4. Suspect C. difficile colitis #Complicated UTI CT shows left kidney stone nonobstructive. #FRED: Likely due to sepsis/dehydration. #Sacral decubitus: Infected, needs wound care evaluation. Recommendations: -Ordered CDiff in stool PCR STAT -Start oral vancomycin 250 mg p.o. 4 times daily -Continue metronidazole 500 g IV every 8 hours -Continue cefepime renally adjusted for now, will probably stop soon -Continue IV vancomycin for now, will probably stop soon -Obtain wound care consult -Follow-up blood cultures Will follow. Nunu Barroso MD Infectious Diseases Home Staging Specialist [facility] ([facility] M [phone] O [phone]
[2020-07-02 13:37] LABS: Creatinine,Urine 85.5 mg/dL (0.1-20.0)
[2020-07-02] MEDS: MIDODRINE 5 MG TAB PO SCH ×2 (14:06→20:39)
[2020-07-02] MEDS: VANCOMYCIN 250 MG/10 ML ORAL LIQD PO SCH ×2 (14:45→20:39)
--- NOTE | 2020-07-02 15:39 | Consultation ---
History of Present Illness Consult date: 07/02/20 Requesting physician: MARK NGUYEN Consult reason: elevated troponin History of present illness: This patient is a 70-year-old male with a significant history of A. fib AC state unknown, dementia, advanced stage decubitus ulcers with sacral osteomyelitis suspected. Patient is altered mental status and reportedly is altered at baseline thus history is obtained from the chart. Patient is previously unknown to our practice. Patient was brought to [facility] ER for suspected sepsis secondary to UTI. Review of labs reveal leukocytosis 47,000, acute kidney injury, metabolic acidosis, elevated troponins. CT abdomen reveals chronic colitis. Cardiology is consulted regarding elevated troponins x1. At time of interview patient is altered mental status and unable to provide history. Breath sounds are clear and equal. No obvious peripheral edema. Past History Past Medical History: anemia, heart failure, other (Dementia, paraplegia, peripheral vascular disease, chronic respiratory failure, chronic anemia, chronic decubitus ulcers in the right hip and left elbow, osteomyelitis of the sacral vertebra) Past Surgical History: Other (Unable to obtain) Social history: other (Patient resides in a fdc) Family history: other (Unknown) Medications and Allergies Allergies Allergy/AdvReac Type Severity Reaction Status Date / Time No Known Allergies Allergy Verified 07/01/20 23:23 Home Medications Medication Instructions Recorded Confirmed Last Taken Type Acetaminophen [Aphen] 325 mg PO PRN PRN 07/02/20 07/02/20 Unknown History Amlodipine Besylate [Norvasc] 10 mg PO DAILY 07/02/20 07/02/20 Unknown History Ascorbic Acid/Ascorbate Sodium 500 mg PO DAILY 07/02/20 07/02/20 Unknown History [Vit C-Alyce Hips 500 mg Chew Tb] Aspirin [Adult Aspirin] 81 mg PO DAILY 07/02/20 07/02/20 Unknown History AtorvaSTATin [Lipitor] 10 mg PO QHS 07/02/20 07/02/20 Unknown History Ciprofloxacin HCl 500 mg PO Q8HR 07/02/20 07/02/20 Unknown History Diclofenac 1% [Diclofenac 1% 1 applic TP Q6HR 07/02/20 07/02/20 Unknown History topical gel] Epoetin Baljeet [Procrit] 3,000 unit SQ QWEEK 07/02/20 07/02/20 Unknown History Heparin Sodium,Porcine [Heparin 5,000 unit SUB-Q Q8HR 07/02/20 07/02/20 Unknown History Sodium] Ipratropium/Albuterol Sulfate 1 ampul IH Q6HR 07/02/20 07/02/20 Unknown History [DUONEB *Not for PRN Use*] Lispro Insulin [HumaLOG] 0 unit SQ ACHS 07/02/20 07/02/20 Unknown History Multivit-Minerals/Folic Acid 1 tab PO DAILY 07/02/20 07/02/20 Unknown History [Adult One Daily Multivit Tab] PANTOPRAZOLE SODIUM (nf) [Protonix 40 mg PO QAM 07/02/20 07/02/20 Unknown History GRANULES] Zinc Sulfate 220 mg PO DAILY 07/02/20 07/02/20 Unknown History allopurinoL [Zyloprim] 100 mg PO QDAY 07/02/20 07/02/20 Unknown History hydrALAZINE [Apresoline TAB] 100 mg PO TID 07/02/20 07/02/20 Unknown History Active Meds: Active Medications Famotidine (Famotidine 20 Mg Tab) 20 mg PO QHS [facility] Heparin Sodium (Porcine) (Heparin 5,000 Unit/1 Ml Vial) 5,000 unit SUB-Q Q8HR [facility] Last Admin: 07/02/20 14:06 Dose: 5,000 unit Documented by: Sodium Chloride (Nacl 0.9% 1000 Ml) 1,000 mls @ 150 mls/hr IV DIRECT [facility] Last Admin: 07/02/20 13:40 Dose: 150 mls/hr Documented by: Metronidazole (Flagyl 500 Mg/100 Ml) 500 mg in 100 mls @ 100 mls/hr IV Q8H [facility]; Protocol Last Admin: 07/02/20 07:19 Dose: 100 mls/hr Documented by: Cefepime HCl (Cefepime/Ns 2 Gm/100 Ml) 2 gm in 100 mls @ 200 mls/hr IV Q24H [facility]; Protocol Magnesium Hydroxide (Magnesium Hydroxide (Mom) Oral Liqd Udc) 30 ml PO Q4H PRN PRN Reason: Constipation Midodrine (Midodrine 5 Mg Tab) 10 mg PO TID [facility] Stop: 07/05/20 08:01 Last Admin: 07/02/20 14:06 Dose: 10 mg Documented by: Morphine Sulfate (Morphine 2 Mg/1 Ml Inj) 2 mg IV Q4H PRN PRN Reason: Pain, Moderate (4-6) Ondansetron HCl (Ondansetron 4 Mg/2 Ml Inj) 4 mg IV Q8H PRN PRN Reason: Nausea And Vomiting Sodium Chloride (Sodium Chloride 0.9% 10 Ml Flush Syringe) 10 ml IV BID [facility] Last Admin: 07/02/20 09:10 Dose: Not Given Documented by: Sodium Chloride (Sodium Chloride 0.9% 10 Ml Flush Syringe) 10 ml IV PRN PRN PRN Reason: LINE FLUSH Vancomycin HCl (Vancomycin 250 Mg/10 Ml Oral Liqd) 250 mg PO Q6H [facility]; Protocol Last Admin: 07/02/20 14:45 Dose: 250 mg Documented by: Review of Systems ROS unobtainable: due to mental status Physical Examination Last Vital Signs Temp 97.4 F L 07/02/20 12:00 Pulse 94 H 07/02/20 12:00 Resp 25 H 07/02/20 12:00 BP 88/45 07/02/20 11:00 Pulse Ox 100 07/02/20 12:00 General appearance: other (Altered mental status) HEENT: Positive: Other Neck: Positive: neck supple, trachea midline Cardiac: Positive: irregularly irregular, S1/S2 Lungs: Positive: clear to auscultation, Normal Breath Sounds Neuro: Positive: Other (Altered mental status) Abdomen: Positive: Unremarkable Skin: Positive: Ulceration, Wound. Negative: Rash Musculoskeletal: other (Altered mental status) Extremities: Present: upper extr. pulses, lower extr. pulses. Absent: edema Results 07/01/20 21:00 07/01/20 21:00 Cardiac Enzymes 07/01/20 Range/Units 21:00 AST 27 (5-40) units/L Lipids 07/01/20 Range/Units 21:00 Triglycerides 38 (2-149) mg/dL Cholesterol 62 (50-199) mg/dL HDL Cholesterol 37 L (40-59) mg/dL Cholesterol/HDL Ratio 1.67 % CBC 07/01/20 Range/Units 21:00 WBC 47.5 H* (4.5-11.0) K/mm3 RBC 3.05 L (3.65-5.03) M/mm3 Hgb 8.5 L (11.8-15.2) gm/dl Hct 28.3 L (35.5-45.6) % Plt Count 427 (140-440) K/mm3 Comprehensive Metabolic Panel 07/01/20 Range/Units 21:00 Sodium 135 L (137-145) mmol/L Potassium 3.9 (3.6-5.0) mmol/L Chloride 109.5 H (98-107) mmol/L Carbon Dioxide 10 L (22-30) mmol/L BUN 51 H (9-20) mg/dL Creatinine 3.1 H (0.8-1.3) mg/dL Glucose 114 H (75-100) mg/dL Calcium 7.3 L (8.4-10.2) mg/dL AST 27 (5-40) units/L ALT 18 (7-56) units/L Alkaline Phosphatase 128 (35-129) units/L Total Protein 5.6 L (6.3-8.2) g/dL Albumin 1.8 L (3.9-5) g/dL - Imaging and Cardiology Echo: pending EKG: pending EKG interpretations - Telemetry EKG Rhythm: Atrial Fibrillation - EKG Supraventricular dysrhythmia: atrial fibrillation Assessment and Plan Telemetry reviewed: A. fib 100s to 110s. #Elevated troponin * 12-lead reviewed: A. fib 105, no ST segment elevation. Troponin elevated x1. Continue to trend CE's. * Echocardiogram is pending #Atrial fibrillation in setting of severe anemia * Recommend no anticoagulation in setting of severe anemia due to risk of significant bleeding event #Acute on chronic renal disease * Nephrology is following #Sepsis secondary to UTI suspected, colitis * Management per primary team, ID is following #DVT Prophylaxis * SCDs ordered. No AC due to severe anemia We will follow This patient was seen in conjunction with Dr. Deloris Kimball who agrees with this assessment and plan of care
[2020-07-02] MEDS: FAMOTIDINE 20 MG TAB PO SCH (21:00)
[2020-07-02] MEDS: CEFEPIME/NS 2 GM/100 ML 2 GM/100 ML BAG IV SCH (21:01)
[2020-07-03] MEDS: VANCOMYCIN 250 MG/10 ML ORAL LIQD PO SCH ×4 (01:09→19:26)
--- NOTE | 2020-07-03 02:46 | Consultation ---
DATE OF CONSULTATION: 07/02/2020 PULMONARY CRITICAL CARE CONSULT NOTE CONSULTING PHYSICIAN: Dr. Damian. REASON FOR CONSULTATION: Septic shock. CHIEF COMPLAINT AND HISTORY OF PRESENT ILLNESS: The patient is a 70-year-old -[place] female, prison resident with a past medical history significant amongst other things for a diagnosis of paraplegia and a chronic sacral decubitus ulcer, but also heart failure with preserved ejection fraction as well as osteomyelitis of the sacral vertebral region, brought into the emergency room from the prison secondary to abnormal labs, white cell count was 43,000. In the emergency room, he was given some IV fluids. He was also found to be hypotensive. I believe that a total of about 1.5 liters in the ER. During the ER stay, he had four large loose stools. Workup in the emergency room showed that the leukocytosis was up to 47,500 and his serum bicarbonate was down to 10. A CT of the abdomen and pelvis revealed a chronic colitis, mild ascites and confirms the osteomyelitis. We are asked to assist with management. When I stopped by to see him, he was resting in bed. He remained hypotensive with mean arterial pressures were about 60 really between 50s to 60s since he has been here. He denied any chest pain, denies shortness of breath. He seems to be pretty alert and appeared to be answering the questions appropriately. He denies any nausea, vomiting or overt aspiration and since he has been here, there has been no such episodes of emesis. The patient is not a current tobacco abuser, remote history is unknown. The above is really as much of the history of presentation as I have. PAST MEDICAL HISTORY: Again, history of paraplegia, dementia, chronic sacral decubitus ulcer, peripheral vascular disease, heart failure with preserved ejection fraction, anemia, hypertension, osteomyelitis. PAST SURGICAL HISTORY: Unknown. MEDICATIONS: He was on at the time I stopped by to see him, according to the medication administration record included the following: Heparin 5000 units subQ q. 8. hours, Flagyl 500 mg IV q. 8 hours, morphine sulfate 2 mg IV q. 4 hours p.r.n. moderate pain, Zofran 4 mg IV q. 8 hours p.r.n. nausea and vomiting. ALLERGIES: No known drug allergies. DIET: Cachectic gentleman, acute weight loss, again history is unknown. SOCIAL HISTORY: correction resident. No current alcohol, tobacco or illicit drug use or abuse. Remote history is unknown. FAMILY HISTORY: Otherwise unknown. REVIEW OF SYSTEMS: Difficult to obtain secondary to patient's medical and mental condition. Since he has been here, no gross hematochezia or melena, no gross hematuria, no hematemesis, no hemoptysis, no bloody tracheal secretions, no witnessed seizures. Review of systems otherwise unobtainable or as in the body of the history above. PHYSICAL EXAMINATION: VITAL SIGNS: At presentation here revealed vital signs showed he was afebrile, temperature 96.8 degrees Fahrenheit with a pulse of 91, respiratory rate of 20, blood pressure 102/44, O2 sats 100%. At that time inspired oxygen concentration was not recorded since then this morning, he has had his MAPS have been as low as 52. Current blood pressure 88/45, O2 sats 100% on room air. GENERAL: Elderly looking chronically ill looking male. Normocephalic, atraumatic. Resting in bed with normal respiratory effort at rest. HEENT: Anicteric. No conjunctival erythema. Oropharynx is dry. No gross jugular venous distention, no thyromegaly. I think he is partially edentulous. NECK: Grossly there were no palpable lymph nodes in the supraclavicular or submandibular lymph node chains. LUNGS: Auscultation of both lung kay are unremarkable. Lungs are clear with good bilateral air movement. HEART: Sounds 1 and 2 are heard at the time of my evaluation, regular rate and rhythm without overt rubs or murmurs. ABDOMEN: Soft, flat, bowel sounds are positive, nontender, no palpable hepatosplenomegaly. EXTREMITIES: Without overt digital clubbing or cyanosis, no pedal edema. Pedal pulses are 2+ bilaterally. NEUROLOGIC: Pupils are equal, round, about 4 mm, reactive to light. Extraocular muscle movements appeared intact. He had contractures to the lower extremities. He has paraparesis. SKIN: Poor turgor without overt cellulitis or rash. He does have the chronic sacral decubitus ulcer and other pressure ulcers. Please see the wound care nurses' notes for full description of his skin. Mood was normal. Affect was appropriate. He had very poor insight and judgment. LABORATORY DATA: From my review white cell count 47,500; hemoglobin 8.5; hematocrit 28.3; platelet count 427. No band forms on the manual differential. Serum sodium 135, potassium 3.9, chloride 110, bicarbonate 10, BUN 51, creatinine 3.1 and a glucose of 114. Lactic acid level was within normal limits. Troponin was elevated at 0.15. Albumin low at 1.8. Urinalysis positive for nitrites and large leukocyte esterase with greater than 182 white cells per high power field. Two sets of blood cultures are no growth to date. A chest x-ray is severely rotated x-ray to the right, difficult to interpret, but no real focal consolidation that I can see. A CT scan of his chest was done. It is a noncontrast CT, appears to have small bilateral pleural effusions, greater on the right lower lobe disease, which on the lung windows suggests some element of consolidation, possible aspiration. It also reports some mild ascites in the abdominal cuts and the CT of the abdomen and pelvis mention sacral osteomyelitis. ASSESSMENT: 1. Septic shock, presumably secondary to urinary tract infection. 2. Urinary tract infection. 3. Sacral decubitus ulcer present on arrival. 4. Acute kidney injury. 5. Likely Clostridium difficile colitis. 6. Leukocytosis. 7. Non-ST elevation myocardial infarction. 8. Sacral osteomyelitis. 9. Severe protein calorie malnutrition. 10. Anemia that is normocytic. 11. Metabolic acidosis. PLAN: We will keep him here in the intensive care unit. I am going to give him a bolus of 1 liter of normal saline and continue to run IV normal saline at 150 mL per hour. Urine electrolytes will be sent to help calculate the fraction excretion of sodium. I am suspecting this is a prerenal azotemia. Nephrology consultation has been placed. I will defer to nephrology for further management from that standpoint. I do agree with current anti-infective therapy with Flagyl; however, with possibility of wound infection and this prison resident, I think he may benefit from further medications to include possibly vancomycin and broadening the antibiotic therapy outwards. For this reason, the infectious disease consultation will be placed to aid clinical decision making. I will also be ordering a procalcitonin level and trend as necessary. Oral nutrition will be the feeding modality of choice as long as he passes a swallow evaluation. He may have an element of an aspiration pneumonia, also for that reason, I will also be adding Levaquin to his care at this point in time pending infectious disease evaluation. I will defer to the attending physician for Cardiology consultation for the non-ST elevation NC. Oxygen will be offered as necessary to keep sats greater than or equal to about 90%. A wound care consult has been placed. I will defer to them. Mobility protocols will be instituted for pressure ulcer prophylaxis. He will be placed on GI prophylaxis, especially this mostly bedbound gentleman. He is on DVT prophylaxis. He will be placed on GI prophylaxis now. Electrolytes will be followed. Inputs and outputs will be monitored as necessary. A Das catheter will be left in for now due to the renal failure, but also the sacral decubitus ulcer. Flu and pneumonia vaccination will be addressed per protocol. Vasopressors will be started if he does not respond to the volume administration. Consideration will also be given for midodrine in the short term. Thank you very much for the consult, Dr. Damian. We will follow along and make further recommendations as picture progresses/becomes clearer. He is critically ill on life-sustaining interventions at high risk of from cardiopulmonary system decompensation and renal system decompensation. At this time, we spent about 35-40 minutes of critical care time without overlap and excluding any procedural time that may be necessary. TID: [id number] RECEIPT: [id number] ANNELISE/EMRE/ROMAN DUQUE
[2020-07-03] MEDS: SODIUM CHLORIDE 0.9% 1000 ML 1,000 ML IV SCH (05:03)
[2020-07-03 05:16] LABS: Hematocrit 26.5 % (35.5-45.6); Hemoglobin 8.3 gm/dl (11.8-15.2); Mean Corpuscular HGB Conc 31 % (32-34); Mean Corpuscular Volume 88 fl (84-94); Platelet Count 538 K/mm3 (140-440); Red Blood Count 3.03 M/mm3 (3.65-5.03); Red Cell Distribution Width 19.6 % (13.2-15.2)
[2020-07-03 05:27] LABS: INR 1.45 (0.87-1.13)
[2020-07-03 05:36] LABS: Calcium 7.2 mg/dL (8.4-10.2)
[2020-07-03] MEDS: HEPARIN 5,000 UNIT/1 ML VIAL SUB-Q SCH ×3 (06:29→21:41)
[2020-07-03 06:56] LABS: Band Neutrophils # (Manual) 1.8 K/mm3; Myelocytes # (Manual) 0.6 K/mm3; Total Cells Counted 100
[2020-07-03 06:57] LABS: Anisocytosis 1+; Burr Cells 1+; Platelet Estimate Consistent w Auto; Poikilocytosis 1+
[2020-07-03] MEDS ORDERED: SODIUM BICARB 8.4% 50 MEQ/50 ML SYRINGE IV STA (07:38)
[2020-07-03] MEDS ORDERED: MAGNESIUM SULFATE 2 GM/50 ML BAG IV ONE (08:00)
[2020-07-03] MEDS: MIDODRINE 5 MG TAB PO SCH ×3 (08:44→19:26)
--- NOTE | 2020-07-03 09:01 | Progress Note ---
Assessment and Plan 70-year-old -[place] male resident of skilled nursing with known history of paraplegia, dementia, sacral decubitus ulcer, peripheral vascular disease, diastolic heart failure, anemia, hypertension and osteomyelitis of the sacral vertebral region presenting in the emergency room with abnormal labs from the skilled nursing. Patient was noted to have had leukocytosis of 43.2. En route to the hospital by EMS patient was said to be hypotensive and received 1.5 L of normal saline. Upon arrival in the emergency room patient received further boluses of IV fluid with some improvement in his blood pressure. During the course of his stay in the emergency room, patient had 4 large loose stools. Work-up in the emergency room reveals leukocytosis of 47.5, hemoglobin of 8.5, CO2 of 10, troponin of 0.149, BUN of 51 and creatinine of 3.1. Urinalysis was significant for UTI. CT of the abdomen and pelvis reveals chronic colitis greater distally, mild ascites, pleural fluid and soft tissue anasarca. Calcified gallstone, 7 mm nonobstructive left renal stone. Sacral decubitus ulcer with suspected underlying osteomyelitis. Patient is being admitted with septic shock, acute renal failure, UTI and colitis. Septic patient being treated with antibiotics including Cefepime, Metronidazole, and Vancomycin. Patient awake but weak. He is resting on room air. O2 saturation 96%. Patient afebrile, however leukocyte count is very high. Chest x-ray on 07/01/20 shows Moderate pleural parenchymal opacification in the right lung base likely represents pleural effusion and associated compressive atelectasis. Clinical correlation rule out a superimposed infectious process is recommended. CT Chest on 07/01/20 shows Small bilateral effusions right greater than left. No pneumothorax. Moderate volume loss/atelectasis right chest. Medications include the above antibiotics and famotidine, and s/c heparin. Patient was seen in IMCU. I spent critical care time of 40 minutes in reviewing the chart, examining the patient, reviewing the chest x-ray and labs, and talking to the nursing and respiratory therapy, and working out a plan of treat ment in this critically ill patient. - Patient Problems (1) Septic shock Current Visit: Yes Status: Acute Plan to address problem: Patient is on Cefepime, Metronidazole, and Vancomycin. (2) FRED (acute kidney injury) Current Visit: Yes Status: Acute Plan to address problem: Management as per nephrology. (3) C. difficile colitis Current Visit: Yes Status: Acute Plan to address problem: Patient is on Metronidazole, and Vancomycin. ID is following. (4) Sacral osteomyelitis Current Visit: Yes Status: Acute Plan to address problem: Management as per ID. Wound care management. Subjective Date of service: 07/03/20 Interval history: 70-year-old -[place] male resident of skilled nursing with known history of paraplegia, dementia, sacral decubitus ulcer, peripheral vascular disease, diastolic heart failure, anemia, hypertension and osteomyelitis of the sacral vertebral region presenting in the emergency room with abnormal labs from the skilled nursing. Patient was noted to have had leukocytosis of 43.2. En route to the hospital by EMS patient was said to be hypotensive and received 1.5 L of normal saline. Upon arrival in the emergency room patient received further boluses of IV fluid with some improvement in his blood pressure. During the course of his stay in the emergency room, patient had 4 large loose stools. Work-up in the emergency room reveals leukocytosis of 47.5, hemoglobin of 8.5, CO2 of 10, troponin of 0.149, BUN of 51 and creatinine of 3.1. Urinalysis was significant for UTI. CT of the abdomen and pelvis reveals chronic colitis greater distally, mild ascites, pleural fluid and soft tissue anasarca. Calcified gallstone, 7 mm nonobstructive left renal stone. Sacral decubitus ulcer with suspected underlying osteomyelitis. Patient is being admitted with septic shock, acute renal failure, UTI and colitis. Septic patient being treated with antibiotics including Cefepime, Metronidazole, and Vancomycin. Patient awake but weak. He is resting on room air. O2 saturation 96%. Patient afebrile, however leukocyte count is very high. Chest x-ray on 07/01/20 shows Moderate pleural parenchymal opacification in the right lung base likely represents pleural effusion and associated compressive atelectasis. Clinical correlation rule out a superimposed infectious process is recommended. CT Chest on 07/01/20 shows Small bilateral effusions right greater than left. No pneumothorax. Moderate volume loss/atelectasis right chest. Medications include the above antibiotics and famotidine, and s/c heparin. Objective Vital Signs - 12hr 07/02/20 07/02/20 07/02/20 21:00 21:16 21:30 Temperature Pulse Rate 104 H 112 H 103 H Pulse Rate [ From Monitor] Respiratory 24 20 18 Rate Blood Pressure 176/89 104/42 104/42 O2 Sat by Pulse 100 99 99 Oximetry 07/02/20 07/02/20 07/02/20 21:46 22:00 22:01 Temperature Pulse Rate 109 H 100 H Pulse Rate [ From Monitor] Respiratory 21 23 Rate Blood Pressure 104/42 104/42 98/47 O2 Sat by Pulse 98 99 Oximetry 07/02/20 07/02/20 07/03/20 22:16 22:30 00:00 Temperature 97.6 F Pulse Rate 103 H 107 H 101 H Pulse Rate [ 101 H From Monitor] Respiratory 26 H 27 H 21 Rate Blood Pressure 98/47 98/47 O2 Sat by Pulse 98 98 99 Oximetry 07/03/20 07/03/20 07/03/20 04:00 06:35 06:46 Temperature 97.8 F Pulse Rate 113 H 121 H 117 H Pulse Rate [ 113 H From Monitor] Respiratory 26 H 26 H 26 H Rate Blood Pressure O2 Sat by Pulse 97 95 94 Oximetry 07/03/20 07/03/20 07:00 08:00 Temperature 97.4 F L Pulse Rate 110 H Pulse Rate [ From Monitor] Respiratory 20 Rate Blood Pressure O2 Sat by Pulse 94 Oximetry Constitutional: no acute distress, alert Eyes: non-icteric ENT: oropharynx moist Neck: supple Effort: normal Ascultation: Bilateral: diminished breath sounds, rhonchi Cardiovascular: regular rate and rhythm Gastrointestinal: normoactive bowel sounds, non-distended Integumentary: normal Extremities: no cyanosis Neurologic: normal mental status, non-focal exam Psychiatric: mood appropriate, affect normal CBC and BMP: 07/04/20 04:58 07/04/20 04:58 ABG, PT/INR, D-dimer: PT/INR, D-dimer PT 17.5 Sec. (12.2-14.9) H 07/03/20 05:03 INR 1.45 (0.87-1.13) H 07/03/20 05:03 Abnormal lab findings: Abnormal Labs 07/01/20 07/01/20 07/01/20 21:00 21:00 23:17 WBC 47.5 H* RBC 3.05 L Hgb 8.5 L Hct 28.3 L MCH MCHC 30 L RDW 19.7 H Plt Count Seg Neuts % (Manual) 90.0 H Lymphocytes % (Manual) 6.0 L Seg Neutrophils # Man 42.8 H Monocytes # (Manual) 1.9 H PT INR Sodium 135 L Potassium Chloride 109.5 H Carbon Dioxide 10 L BUN 51 H Creatinine 3.1 H Glucose 114 H Calcium 7.3 L Phosphorus Magnesium Troponin T 0.149 H* Total Protein 5.6 L Albumin 1.8 L LDL Cholesterol Direct 19 L HDL Cholesterol 37 L Urine WBC (Auto) > 182.0 H Urine Creatinine 07/02/20 07/02/20 07/03/20 13:27 13:44 05:03 WBC 59.5 H* RBC 3.03 L Hgb 8.3 L Hct 26.5 L MCH 27 L MCHC 31 L RDW 19.6 H Plt Count 538 H Seg Neuts % (Manual) 89.0 H Lymphocytes % (Manual) 2.0 L Seg Neutrophils # Man 53.0 H Monocytes # (Manual) PT INR Sodium Potassium Chloride Carbon Dioxide BUN Creatinine Glucose Calcium Phosphorus 5.90 H Magnesium 1.50 L Troponin T Total Protein Albumin LDL Cholesterol Direct HDL Cholesterol Urine WBC (Auto) Urine Creatinine 85.5 H 07/03/20 07/03/20 05:03 05:03 WBC RBC Hgb Hct MCH MCHC RDW Plt Count Seg Neuts % (Manual) Lymphocytes % (Manual) Seg Neutrophils # Man Monocytes # (Manual) PT 17.5 H INR 1.45 H Sodium Potassium 3.3 L Chloride 115.5 H Carbon Dioxide 9 L* BUN 52 H Creatinine 3.2 H Glucose 120 H Calcium 7.2 L Phosphorus Magnesium Troponin T 0.089 H D Total Protein Albumin LDL Cholesterol Direct HDL Cholesterol Urine WBC (Auto) Urine Creatinine Chest x-ray: report reviewed, image reviewed CT scan - chest: report reviewed, image reviewed Additional Studies: CHEST 1 VIEW 07/01/2020 8:57 PM INDICATION / CLINICAL INFORMATION: hypotension sepsis. COMPARISON: None available. FINDINGS: The study is minimally limited secondary to rotation. SUPPORT DEVICES: None. HEART / MEDIASTINUM: Mild enlargement of the cardiac silhouette. LUNGS / PLEURA: Moderate pleural parenchymal opacification noted in the right lung base. The left lung field is clear. No pneumothorax. ADDITIONAL FINDINGS: Gas-filled and distended bowel loops are noted over the upper abdomen. IMPRESSION: 1. Moderate pleural parenchymal opacification in the right lung base likely represents pleural effusion and associated compressive atelectasis. Clinical correlation rule out a superimposed infectious process is recommended. CT CHEST, ABDOMEN, AND PELVIS WITHOUT CONTRAST 07/01/20 INDICATION / CLINICAL INFORMATION: sepsis. TECHNIQUE: Axial CT images were obtained through the chest, abdomen, and pelvis without contrast. All CT scans at this location are performed using CT dose reduction for ALARA by means of automated exposure control. COMPARISON: None available. FINDINGS: HEART/VASCULAR STRUCTURES: Coronary artery calcification. MEDIASTINUM / CARMEN: No significant abnormality. PLEURA: Small bilateral effusions right greater than left. No pneumothorax. LUNGS: Moderate volume loss/atelectasis right chest. ADDITIONAL CHEST FINDINGS: None. LIVER: No significant abnormality. GALLBLADDER: Calcified gallstone. BILE DUCTS: No significant abnormality. PANCREAS: No significant abnormality. SPLEEN: No significant abnormality. ADRENALS: No significant abnormality. RIGHT KIDNEY / URETER: 7 mm nonobstructing stone at the renal pelvis. LEFT KIDNEY / URETER: No significant abnormality. STOMACH and SMALL BOWEL: Mild small bowel distention. COLON: Prominent colonic thickening is greater distally. APPENDIX: Nonvisualized. PERITONEUM: Mild ascites is scattered diffusely. No free air. No fluid collection. LYMPH NODES: No significant adenopathy. VASCULAR STRUCTURES: No significant abnormality. URINARY BLADDER: Symmetric bladder thickening. REPRODUCTIVE ORGANS: No significant abnormality. ADDITIONAL FINDINGS: Patient severely contracted limiting evaluation. Mild soft tissue anasarca. Sacral decubitus ulcer. 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 Mild cortical irregularity inferior sacrum on the right. IMPRESSION: 1. Chronic colitis greater distally. 2. Mild ascites, pleural fluid and soft tissue anasarca. 3. Calcified gallstone. 4. 7 mm nonobstructing left renal stone. 5. Sacral decubitus ulcer with suspected underlying osteomyelitis.
--- NOTE | 2020-07-03 09:16 | Progress Note ---
Assessment and Plan Telemetry reviewed: A. fib 110s-120s. No events #Elevated troponin * 12-lead reviewed: A. fib 105, no ST segment elevation. Troponin elevated x1, repeat troponin is mildly elevated nonspecific and subacute, trending downward. Continue to trend CE's. * Echocardiogram is pending #Atrial fibrillation in setting of severe anemia * Recommend no anticoagulation in setting of severe anemia due to risk of significant bleeding event * Currently no rate control medications, AV ishan blocking agents in setting of soft blood pressure anticipating need for pressors. #Acute on chronic renal disease * Nephrology is following #Sepsis secondary to UTI suspected, colitis * Management per primary team, ID is following #DVT Prophylaxis * SCDs ordered. No AC due to severe anemia We will follow This patient was seen in conjunction with Dr. Deloris Kimball who agrees with this assessment and plan of care Subjective Date of service: 07/03/20 Principal diagnosis: Sepsis UTI Interval history: Patient resting in bed. No chest pain or shortness of breath overnight. Telemetry reviewed: A. fib 110s-120s. No events Objective Last Vital Signs Temp 97.4 F L 07/03/20 08:00 Pulse 110 H 07/03/20 07:00 Resp 20 07/03/20 07:00 BP 98/47 07/02/20 22:30 Pulse Ox 94 07/03/20 07:00 - Physical Examination General: No Apparent Distress HEENT: Positive: PERRL, Normocephaly, Mucus Membranes Moist Neck: Positive: neck supple, trachea midline Cardiac: Positive: irregularly irregular, S1/S2 Lungs: Positive: Normal Exam Neuro: Positive: Grossly Intact Abdomen: Positive: Unremarkable Skin: Positive: Ulceration, Wound. Negative: Rash Musculoskeletal: other (Altered mental status) Extremities: Present: upper extr. pulses, lower extr. pulses. Absent: edema - Labs and Meds Coagulation 07/03/20 Range/Units 05:03 PT 17.5 H (12.2-14.9) Sec. INR 1.45 H (0.87-1.13) CBC 07/03/20 Range/Units 05:03 WBC 59.5 H* (4.5-11.0) K/mm3 RBC 3.03 L (3.65-5.03) M/mm3 Hgb 8.3 L (11.8-15.2) gm/dl Hct 26.5 L (35.5-45.6) % Plt Count 538 H (140-440) K/mm3 Comprehensive Metabolic Panel 07/03/20 Range/Units 05:03 Sodium 139 (137-145) mmol/L Potassium 3.3 L (3.6-5.0) mmol/L Chloride 115.5 H (98-107) mmol/L Carbon Dioxide 9 L* (22-30) mmol/L BUN 52 H (9-20) mg/dL Creatinine 3.2 H (0.8-1.3) mg/dL Glucose 120 H (75-100) mg/dL Calcium 7.2 L (8.4-10.2) mg/dL - Imaging and Cardiology EKG: report reviewed, image reviewed Echo: pending - Telemetry EKG Rhythm: Atrial Fibrillation - EKG Supraventricular dysrhythmia: atrial fibrillation
[2020-07-03] MEDS ORDERED: VANCOMYCIN 500 MG in SODIUM CHLORIDE 0.9% 100 ML IV ONE (10:00)
--- NOTE | 2020-07-03 10:06 | Progress Note ---
Assessment and Plan - Patient Problems (1) FRED (acute kidney injury) Current Visit: Yes Status: Acute Plan to address problem: Likely in the setting of prerenal injury in the setting of urinary tract infection and possible exacerbation of colitis with previous history of C. difficile colitis per nursing staff. Agree with current regimen with aggressive IV fluid hydration and hemodynamic management. Antibiotics to target urinary tract infection. Will obtain a renal ultrasound along with urine electrolytes for further evaluation. Please avoid all nephrotoxins at this time given his acute kidney injury. We will be monitoring carefully. We will need to make sure that his renal toe pressures remain above 65 mmHg which to have been at this time. He has not required pressors at this time. (2) Metabolic acidosis Current Visit: Yes Status: Acute Plan to address problem: In the setting of acute kidney injury with questionable history of diarrheal symptoms and apparently finding of colitis that is chronic in nature on his most recent CT scan. We are maintaining patient on IV fluid hydration which we will adjust to D5W+150 meq NaHCO3. (3) C. difficile colitis Current Visit: Yes Status: Acute Plan to address problem: C. difficile studies are pending at this time. She is on contact precaution at this time. Per nursing staff since coming up to be ICU he really has not had significant bowel movement. CT scan of the abdomen did show what was read as chronic colitis. (4) Complicated urinary tract infection Current Visit: Yes Status: Acute Plan to address problem: Please ensure that antibiotics are dosed appropriately for his decreased renal f unction. Subjective Date of service: 07/03/20 Interval history: No acute changes. Objective - Vital Signs Vital signs: Vital Signs - 12hr 07/02/20 07/02/20 07/03/20 22:16 22:30 00:00 Temperature 97.6 F Pulse Rate 103 H 107 H 101 H Pulse Rate [ 101 H From Monitor] Respiratory 26 H 27 H 21 Rate Blood Pressure 98/47 98/47 O2 Sat by Pulse 98 98 99 Oximetry 07/03/20 07/03/20 07/03/20 04:00 06:35 06:46 Temperature 97.8 F Pulse Rate 113 H 121 H 117 H Pulse Rate [ 113 H From Monitor] Respiratory 26 H 26 H 26 H Rate Blood Pressure O2 Sat by Pulse 97 95 94 Oximetry 07/03/20 07/03/20 07/03/20 07:00 07:16 07:30 Temperature Pulse Rate 110 H 102 H 105 H Pulse Rate [ From Monitor] Respiratory 20 20 26 H Rate Blood Pressure O2 Sat by Pulse 94 94 95 Oximetry 07/03/20 07/03/20 07/03/20 07:46 08:00 08:16 Temperature 97.4 F L Pulse Rate 102 H 96 H 107 H Pulse Rate [ From Monitor] Respiratory 25 H 27 H 28 H Rate Blood Pressure O2 Sat by Pulse 94 95 96 Oximetry 07/03/20 07/03/20 07/03/20 08:30 08:46 09:00 Temperature Pulse Rate 113 H 99 H 113 H Pulse Rate [ From Monitor] Respiratory 23 28 H 26 H Rate Blood Pressure 106/54 99/60 O2 Sat by Pulse 96 95 95 Oximetry 07/03/20 07/03/20 09:16 09:29 Temperature Pulse Rate 96 H Pulse Rate [ From Monitor] Respiratory 27 H Rate Blood Pressure 99/60 102/68 O2 Sat by Pulse 96 Oximetry - General Appearance General appearance: appears stated age, chronically ill EENT: ATNC Neck: no JVD Respiratory: Present: Clear to Ascultation Cardiology: regular Gastrointestinal: normal Integumentary: warm and dry Musculoskeletal: deferred Psychiatric: cooperative - Lab 07/03/20 05:03 07/03/20 05:03 Most recent lab results Calcium 7.2 mg/dL (8.4-10.2) L 07/03/20 05:03 Phosphorus 5.90 mg/dL (2.5-4.5) H 07/02/20 13:44 Magnesium 1.50 mg/dL (1.7-2.3) L 07/02/20 13:44 Urine Creatinine 85.5 mg/dL (0.1-20.0) H 07/02/20 13:27 Urine Sodium 37 mmol/L 07/02/20 13:27 - Allied health notes Allied health notes reviewed: nursing Medications & Allergies - Medications Allergies/Adverse Reactions: Allergies No Known Allergies Allergy (Verified 07/01/20 23:23) Home Medications: Home Medications Medication Instructions Recorded Confirmed Last Taken Type Acetaminophen [Aphen] 325 mg PO PRN PRN 07/02/20 07/02/20 Unknown History Amlodipine Besylate [Norvasc] 10 mg PO DAILY 07/02/20 07/02/20 Unknown History Ascorbic Acid/Ascorbate Sodium 500 mg PO DAILY 07/02/20 07/02/20 Unknown History [Vit C-Alyce Hips 500 mg Chew Tb] Aspirin [Adult Aspirin] 81 mg PO DAILY 07/02/20 07/02/20 Unknown History AtorvaSTATin [Lipitor] 10 mg PO QHS 07/02/20 07/02/20 Unknown History Ciprofloxacin HCl 500 mg PO Q8HR 07/02/20 07/02/20 Unknown History Diclofenac 1% [Diclofenac 1% 1 applic TP Q6HR 07/02/20 07/02/20 Unknown History topical gel] Epoetin Baljeet [Procrit] 3,000 unit SQ QWEEK 07/02/20 07/02/20 Unknown History Heparin Sodium,Porcine [Heparin 5,000 unit SUB-Q Q8HR 07/02/20 07/02/20 Unknown History Sodium] Ipratropium/Albuterol Sulfate 1 ampul IH Q6HR 07/02/20 07/02/20 Unknown History [DUONEB *Not for PRN Use*] Lispro Insulin [HumaLOG] 0 unit SQ ACHS 07/02/20 07/02/20 Unknown History Multivit-Minerals/Folic Acid 1 tab PO DAILY 07/02/20 07/02/20 Unknown History [Adult One Daily Multivit Tab] PANTOPRAZOLE SODIUM (nf) [Protonix 40 mg PO QAM 07/02/20 07/02/20 Unknown History GRANULES] Zinc Sulfate 220 mg PO DAILY 07/02/20 07/02/20 Unknown History allopurinoL [Zyloprim] 100 mg PO QDAY 07/02/20 07/02/20 Unknown History hydrALAZINE [Apresoline TAB] 100 mg PO TID 07/02/20 07/02/20 Unknown History Active Medications: Generic Name Dose Route Start Last Admin Trade Name Freq PRN Reason Stop Dose Admin Famotidine 20 mg 07/02/20 22:00 07/02/20 21:00 Famotidine 20 Mg Tab PO 20 mg QHS HARLEY Administration Heparin Sodium (Porcine) 5,000 unit 07/02/20 06:00 07/03/20 06:29 Heparin 5,000 Unit/1 Ml Vial SUB-Q 5,000 unit Q8HR HARLEY Administration Sodium Chloride 1,000 mls @ 150 mls/hr 07/02/20 01:30 07/03/20 05:03 Nacl 0.9% 1000 Ml IV 150 mls/hr DIRECT HARLEY Administration Metronidazole 500 mg in 100 mls @ 100 mls/hr 07/02/20 08:00 07/03/20 00:00 Flagyl 500 Mg/100 Ml IV 100 mls/hr Q8H HARLEY Administration Protocol Cefepime HCl 2 gm in 100 mls @ 200 mls/hr 07/02/20 22:00 07/02/20 21:01 Cefepime/Ns 2 Gm/100 Ml IV 200 mls/hr Q24H HARLEY Administration Protocol Vancomycin HCl 500 mg/ Sodium 110 mls @ 66.667 mls/hr 07/03/20 10:00 07/03/20 09:19 Chloride IV 07/03/20 11:38 66.667 mls/hr ONCE ONE Administration Magnesium Hydroxide 30 ml 07/02/20 01:22 Magnesium Hydroxide (Mom) Oral Liqd Udc PO Q4H PRN Constipation Midodrine 10 mg 07/02/20 14:00 07/03/20 08:44 Midodrine 5 Mg Tab PO 07/05/20 08:01 10 mg TID HARLEY Administration Morphine Sulfate 2 mg 07/02/20 01:22 Morphine 2 Mg/1 Ml Inj IV Q4H PRN Pain, Moderate (4-6) Ondansetron HCl 4 mg 07/02/20 01:22 Ondansetron 4 Mg/2 Ml Inj IV Q8H PRN Nausea And Vomiting Sodium Chloride 10 ml 07/02/20 10:00 07/02/20 21:00 Sodium Chloride 0.9% 10 Ml Flush Syringe IV 10 ml BID HARLEY Administration Sodium Chloride 10 ml 07/02/20 01:22 Sodium Chloride 0.9% 10 Ml Flush Syringe IV PRN PRN LINE FLUSH Vancomycin HCl 250 mg 07/02/20 14:00 07/03/20 08:44 Vancomycin 250 Mg/10 Ml Oral Liqd PO 250 mg Q6H HARLEY Administration Protocol
[2020-07-03] MEDS: metroNIDAZOLE/NS 500 MG/100 ML 500 MG/100 ML BAG IV SCH ×2 (10:37)
[2020-07-03] MEDS: SODIUM BICARBONATE 150 MEQ in DEXTROSE 5% IN WATER 1,000 ML IV SCH (10:41)
--- NOTE | 2020-07-03 12:07 | Progress Note ---
Assessment and Plan Assessment and plan: Sepsis. Acute kidney injury. Urinary tract infection. Colitis. Metabolic acidosis. Elevated troponin. 07/02/2020. Continue IV fluid hydration. Etiology of acute kidney injury likely secondary to vasomotor nephropathy/prerenal injury. Continue aggressive IV fluid hydration. Follow-up renal ultrasound. Nephrology following. Follow-up stool studies for colitis. Await ID recommendations for IV antibiotics. Consult cardiology for elevated troponin. 07/03/2020. Blood cultures remain negative. Follow-up C. difficile and stool PCR. Continue vancomycin 250 mg p.o. 4 times daily and Flagyl 500 IV every 8 hours. Continue IV vancomycin and cefepime per ID recommendations. Wound care consult. History Interval history: 70-year-old -[place] male with a history of dementia coming in from a residential facility presented to the emergency department secondary to worsening weakness. Was found to be hypotensive and requiring multiple IV fluid boluses both in transit as well as in the emergency department. Nephrology consulted secondary to labs indicating acute kidney injury. Urinalysis indicating a urinary tract infection. He also apparently had issues with 2 loose bowel movements in the emergency department. CT scan of the abdomen and pelvis was done without contrast indicating evidence of what seems to be chronic colitis. Nephrology consulted again at this time for management of acute renal failure. Hospitalist Physical - Constitutional Vitals: Temp Pulse Resp BP Pulse Ox 97.4 F L 101 H 20 89/51 98 07/03/20 08:00 07/03/20 10:30 07/03/20 10:30 07/03/20 10:30 07/03/20 10:30 General appearance: Present: other (Altered mental status) - EENT Eyes: Present: PERRL, EOM intact ENT: hearing intact, clear oral mucosa, dentition normal - Neck Neck: Present: supple, normal ROM - Respiratory Respiratory effort: normal Respiratory: bilateral: CTA - Cardiovascular Rhythm: regular Heart Sounds: Present: S1 & S2. Absent: gallop, rub - Extremities Extremities: no ischemia, No edema, Full ROM - Abdominal General gastrointestinal: soft, non-tender, non-distended, normal bowel sounds - Integumentary Integumentary: Present: clear, warm, dry - Neurologic Neurologic: CNII-XII intact, moves all extremities HEART Score - HEART Score Troponin: Troponin T 0.089 ng/mL (0.00-0.029) H D 07/03/20 05:03 Results - Labs CBC & Chem 7: 07/03/20 05:03 07/03/20 05:03 Labs: Laboratory Last Values WBC 59.5 K/mm3 (4.5-11.0) H* 07/03/20 05:03 RBC 3.03 M/mm3 (3.65-5.03) L 07/03/20 05:03 Hgb 8.3 gm/dl (11.8-15.2) L 07/03/20 05:03 Hct 26.5 % (35.5-45.6) L 07/03/20 05:03 MCV 88 fl (84-94) 07/03/20 05:03 MCH 27 pg (28-32) L 07/03/20 05:03 MCHC 31 % (32-34) L 07/03/20 05:03 RDW 19.6 % (13.2-15.2) H 07/03/20 05:03 Plt Count 538 K/mm3 (140-440) H 07/03/20 05:03 Add Manual Diff Complete 07/03/20 05:03 Total Counted 100 07/03/20 05:03 Seg Neutrophils % Racket Stringer 07/03/20 05:03 Seg Neuts % (Manual) 89.0 % (40.0-70.0) H 07/03/20 05:03 Band Neutrophils % 3.0 % 07/03/20 05:03 Lymphocytes % (Manual) 2.0 % (13.4-35.0) L 07/03/20 05:03 Monocytes % (Manual) 4.0 % (0.0-7.3) 07/01/20 21:00 Metamyelocytes % 5.0 % 07/03/20 05:03 Myelocytes % 1.0 % 07/03/20 05:03 Nucleated RBC % Not Reportable 07/03/20 05:03 Seg Neutrophils # Man 53.0 K/mm3 (1.8-7.7) H 07/03/20 05:03 Band Neutrophils # 1.8 K/mm3 07/03/20 05:03 Lymphocytes # (Manual) 1.2 K/mm3 (1.2-5.4) 07/03/20 05:03 Abs React Lymphs (Man) 0.0 K/mm3 05/12/21 05:03 Monocytes # (Manual) 0.0 K/mm3 (0.0-0.8) 07/03/20 05:03 Eosinophils # (Manual) 0.0 K/mm3 (0.0-0.4) 07/03/20 05:03 Basophils # (Manual) 0.0 K/mm3 (0.0-0.1) 07/03/20 05:03 Metamyelocytes # 3.0 K/mm3 07/03/20 05:03 Myelocytes # 0.6 K/mm3 07/03/20 05:03 Promyelocytes # 0.0 K/mm3 07/03/20 05:03 Blast Cells # 0.0 K/mm3 07/03/20 05:03 Pathologist Review 07/01/20 21:00 WBC Morphology Not Reportable 07/03/20 05:03 Hypersegmented Neuts Not Reportable 07/03/20 05:03 Hyposegmented Neuts Not Reportable 07/03/20 05:03 Hypogranular Neuts Not Reportable 07/03/20 05:03 Smudge Cells Not Reportable 07/03/20 05:03 Toxic Granulation Not Reportable 07/03/20 05:03 Toxic Vacuolation Not Reportable 07/03/20 05:03 Dohle Bodies Not Reportable 07/03/20 05:03 Pelger-Huet Anomaly Not Reportable 07/03/20 05:03 Jeanna Rods Not Reportable 07/03/20 05:03 Platelet Estimate Consistent w auto 07/03/20 05:03 Clumped Platelets Not Reportable 07/03/20 05:03 Plt Clumps, EDTA Not Reportable 07/03/20 05:03 Large Platelets Not Reportable 07/03/20 05:03 Giant Platelets Not Reportable 07/03/20 05:03 Platelet Satelliting Not Reportable 07/03/20 05:03 Plt Morphology Comment Not Reportable 07/03/20 05:03 RBC Morphology Not Reportable 07/03/20 05:03 Dimorphic RBCs Not Reportable 07/03/20 05:03 Polychromasia Not Reportable 07/03/20 05:03 Hypochromasia Not Reportable 07/03/20 05:03 Poikilocytosis 1+ 07/03/20 05:03 Anisocytosis 1+ 07/03/20 05:03 Microcytosis Not Reportable 07/03/20 05:03 Macrocytosis Not Reportable 07/03/20 05:03 Spherocytes Not Reportable 07/03/20 05:03 Pappenheimer Bodies Not Reportable 07/03/20 05:03 Sickle Cells Not Reportable 07/03/20 05:03 Target Cells Not Reportable 07/03/20 05:03 Tear Drop Cells Not Reportable 07/03/20 05:03 Ovalocytes Not Reportable 07/03/20 05:03 Helmet Cells Not Reportable 07/03/20 05:03 [place] Bodies Not Reportable 07/03/20 05:03 [place] Rings Not Reportable 07/03/20 05:03 [place] Cells 1+ 07/03/20 05:03 Bite Cells Not Reportable 07/03/20 05:03 Crenated Cell Not Reportable 07/03/20 05:03 Elliptocytes Not Reportable 07/03/20 05:03 Acanthocytes (Spur) Not Reportable 07/03/20 05:03 Rouleaux Not Reportable 07/03/20 05:03 Hemoglobin C Crystals Not Reportable 07/03/20 05:03 Schistocytes Not Reportable 07/03/20 05:03 Malaria parasites Not Reportable 07/03/20 05:03 Raheem Bodies Not Reportable 07/03/20 05:03 Hem Pathologist Commnt No 07/03/20 05:03 PT 17.5 Sec. (12.2-14.9) H 07/03/20 05:03 INR 1.45 (0.87-1.13) H 07/03/20 05:03 Sodium 139 mmol/L (137-145) 07/03/20 05:03 Potassium 3.3 mmol/L (3.6-5.0) L 07/03/20 05:03 Chloride 115.5 mmol/L (98-107) H 07/03/20 05:03 Carbon Dioxide 9 mmol/L (22-30) L* 07/03/20 05:03 Anion Gap 18 mmol/L 07/03/20 05:03 BUN 52 mg/dL (9-20) H 07/03/20 05:03 Creatinine 3.2 mg/dL (0.8-1.3) H 07/03/20 05:03 Estimated GFR 23 ml/min 07/03/20 05:03 BUN/Creatinine Ratio 16 % 07/03/20 05:03 Glucose 120 mg/dL (75-100) H 07/03/20 05:03 Lactic Acid 1.60 mmol/L (0.7-2.0) 07/01/20 23:35 Calcium 7.2 mg/dL (8.4-10.2) L 07/03/20 05:03 Phosphorus 5.90 mg/dL (2.5-4.5) H 07/02/20 13:44 Magnesium 1.50 mg/dL (1.7-2.3) L 07/02/20 13:44 Total Bilirubin 0.20 mg/dL (0.1-1.2) 07/01/20 21:00 AST 27 units/L (5-40) 07/01/20 21:00 ALT 18 units/L (7-56) 07/01/20 21:00 Alkaline Phosphatase 128 units/L (35-129) 07/01/20 21:00 Troponin T 0.089 ng/mL (0.00-0.029) H D 07/03/20 05:03 Total Protein 5.6 g/dL (6.3-8.2) L 07/01/20 21:00 Albumin 1.8 g/dL (3.9-5) L 07/01/20 21:00 Albumin/Globulin Ratio 0.5 % 07/01/20 21:00 Triglycerides 38 mg/dL (2-149) 07/01/20 21:00 Cholesterol 62 mg/dL (50-199) 07/01/20 21:00 LDL Cholesterol Direct 19 mg/dL (50-130) L 07/01/20 21:00 HDL Cholesterol 37 mg/dL (40-59) L 07/01/20 21:00 Cholesterol/HDL Ratio 1.67 % 07/01/20 21:00 Procalcitonin 24.35 ng/mL (<0.15) 07/02/20 13:44 Urine Color Yellow (Yellow) 07/01/20 23:17 Urine Turbidity Turbid (Clear) 07/01/20 23:17 Urine pH 6.0 (5.0-7.0) 07/01/20 23:17 Ur Specific [place] 1.012 (1.003-1.030) 07/01/20 23:17 Urine Protein 100 mg/dl mg/dL (Negative) 07/01/20 23:17 Urine Glucose (UA) Neg mg/dL (Negative) 07/01/20 23:17 Urine Ketones Neg mg/dL (Negative) 07/01/20 23:17 Urine Blood Sm (Negative) 07/01/20 23:17 Urine Nitrite Pos (Negative) 07/01/20 23:17 Urine Bilirubin Neg (Negative) 07/01/20 23:17 Urine Urobilinogen < 2.0 mg/dL (<2.0) 07/01/20 23:17 Ur Leukocyte Esterase Lg (Negative) 07/01/20 23:17 Urine WBC (Auto) > 182.0 /HPF (0.0-6.0) H 07/01/20 23:17 Urine RBC (Auto) 42.0 /HPF (0.0-6.0) 07/01/20 23:17 U Epithel Cells (Auto) 6.0 /HPF (0-13.0) 07/01/20 23:17 Urine Bacteria (Auto) 2+ /HPF (Negative) 07/01/20 23:17 Urine WBC Clumps 3+ /HPF 07/01/20 23:17 Urine Mucus 2+ /HPF 07/01/20 23:17 Urine Yeast (Budding) 3+ /HPF 07/01/20 23:17 Urine Creatinine 85.5 mg/dL (0.1-20.0) H 07/02/20 13:27 Urine Sodium 37 mmol/L 07/02/20 13:27 Random Vancomycin 10.4 ug/mL (0-40.0) 07/03/20 05:03 Microbiology: Microbiology 07/01/20 21:00 Peripheral/Venous Blood Culture - Preliminary NO GROWTH AFTER 24 HOURS 07/01/20 21:09 Peripheral/Venous Blood Culture - Preliminary NO GROWTH AFTER 24 HOURS Das/IV: Voiding Method Indwelling Catheter Active Medications - Current Medications Current Medications: Generic Name Dose Route Start Last Admin Trade Name Freq PRN Reason Stop Dose Admin Famotidine 20 mg 07/02/20 22:00 07/02/20 21:00 Famotidine 20 Mg Tab PO 20 mg QHS HARLEY Administration Heparin Sodium (Porcine) 5,000 unit 07/02/20 06:00 07/03/20 06:29 Heparin 5,000 Unit/1 Ml Vial SUB-Q 5,000 unit Q8HR HARLEY Administration Metronidazole 500 mg in 100 mls @ 100 mls/hr 07/02/20 08:00 07/03/20 10:37 Flagyl 500 Mg/100 Ml IV 100 mls/hr Q8H HARLEY Administration Protocol Cefepime HCl 2 gm in 100 mls @ 200 mls/hr 07/02/20 22:00 07/02/20 21:01 Cefepime/Ns 2 Gm/100 Ml IV 200 mls/hr Q24H HARLEY Administration Protocol Sodium Bicarbonate 150 meq/ 1,150 mls @ 75 mls/hr 07/03/20 11:00 07/03/20 10:41 Dextrose IV 75 mls/hr DIRECT HARLEY Administration Magnesium Hydroxide 30 ml 07/02/20 01:22 Magnesium Hydroxide (Mom) Oral Liqd Udc PO Q4H PRN Constipation Midodrine 10 mg 07/02/20 14:00 07/03/20 08:44 Midodrine 5 Mg Tab PO 07/05/20 08:01 10 mg TID HARLEY Administration Morphine Sulfate 2 mg 07/02/20 01:22 Morphine 2 Mg/1 Ml Inj IV Q4H PRN Pain, Moderate (4-6) Ondansetron HCl 4 mg 07/02/20 01:22 Ondansetron 4 Mg/2 Ml Inj IV Q8H PRN Nausea And Vomiting Sodium Chloride 10 ml 07/02/20 10:00 07/03/20 10:37 Sodium Chloride 0.9% 10 Ml Flush Syringe IV 10 ml BID HARLEY Administration Sodium Chloride 10 ml 07/02/20 01:22 Sodium Chloride 0.9% 10 Ml Flush Syringe IV PRN PRN LINE FLUSH Vancomycin HCl 250 mg 07/02/20 14:00 07/03/20 08:44 Vancomycin 250 Mg/10 Ml Oral Liqd PO 250 mg Q6H HARLEY Administration Protocol Nutrition/Malnutrition Assess - Dietary Evaluation Nutrition/Malnutrition Findings: Nutrition Notes Start: 07/02/20 14:33 Freq: Status: Active Protocol: Document 07/02/20 14:33 AL (Rec: 07/02/20 14:47 AL [id number]) Co-Sign 07/02/20 14:33 LP Nutrition Notes Need for Assessment generated from: MD Order,Education Initial or Follow up Assessment Current Diagnosis Acute Kidney Injury,Heart Failure Other Pertinent Diagnosis C diff Current Diet Cardiac Diet Labs/Tests Na 135 BUN 51 Cr 3.1 Pertinent Medications NS at 150 ml/hr Height 5 ft 7 in Weight 60.8 kg [place] Body Weight (kg) 67.27 BMI 20.9 Weight Status Appropriate Subjective/Other Information MD consult for diet education. Pt reports losing weight, but unaware of how much weight lost. Pt reports having good appetite, but just can't eat. Per RN, pt is eating 25% of meals and suggests Nepro. At rounds, Dr ordered pt to recieve swallow eval. Burn Absent Trauma Absent Skin Integrity/Comment Sacral wound Current % PO Poor (25-49%) Body Fat Depletion Mild depletion (non-severe) Reduced Group Product Manager Strength Measurably Reduced (severe) #3 Nutrition Diagnosis Food and nutrition-related knowledge deficit Etiology heart failure, HTN As Evidenced by Signs and Symptoms Pt never recieved diet education before. #2 Nutrition Diagnosis Increased nutrient needs ( specify in comment below) Comments: protein Etiology Need for wound healing As Evidenced by Signs and Symptoms Sacral wound #1 Nutrition Diagnosis Malnutrition Etiology paraplegia, dementia As Evidenced by Signs and Symptoms reduced frit mixer strength and body -fat depletion Is patient on ventilator? No Is Patient Ambulatory and/or Out of Bed No REE-([facility]-confined to bed) 1603.848 Calculation Used for Recommendations [facility] Additional Notes Protein: 73-90 g (1.2-1.5 g/kg ) Fluid: 7787-7027 mL or per MD order. Nutrition Intervention Change Diet Order: Continue current diet unless [facility] recommends something else. Add Supplement/Snack (indicate name/kcal Nepro BID /protein ) Provides kCal: 950 Provides Protein (gm) 40 Teaching Recipient Patient Learning Readiness Fair Teaching Methods Discussion,Handout Response to Teaching Verbalize understanding Education Handouts Provided General Healthful Nutrition Tips. Barriers to Learning Auditory RD phone number provided Yes Patient aware of follow up options Yes Goal #1 Meet at least 75% of estimated energy and protein needs. Goal #2 ONS tolerance. Anticipated Discharge Needs: Unable to determine at this time. Follow-Up By: 07/11/20 Additional Comments FU for [facility] recommendations, intakes, and ONS tolerance.
--- NOTE | 2020-07-03 13:43 | Progress Note ---
Assessment and Plan Cultures: Blood culture 07/02/2020 no growth today Assessment: 70-year-old male with history of paraplegia, dementia, chronic sacral decubitus ulcer, peripheral vascular disease, CHF, hypertension, vertebral sacral osteomyelitis admitted on 07/02/2020 [facility] WBC was found to be 43.2, afebrile today patient stools: #Severe sepsis: Leukocytosis continues to worsen 49K-->57K, likely secondary to colitis suspect C. difficile colitis +/- UTI. #Colitis: CT shows chronic colitis. Patient with large liquid bowel movements in route to the hospital x 4. Suspect C. difficile colitis #Complicated UTI CT shows left kidney stone nonobstructive. #FRED: Likely due to sepsis/dehydration. #Sacral decubitus: Infected, needs wound care evaluation. Recommendations: -Hem consult -Ordered CDiff in stool PCR STAT - no stools -Continue oral vancomycin 250 mg p.o. 4 times daily D2 -Continue metronidazole 500 g IV every 8 hours D2 -Continue cefepime renally adjusted for now, will probably stop soon -Stop vancomcyin IV -Obtain wound care consult -Sacral offloading -Follow-up blood cultures Will follow. Nunu Barroso MD Infectious Diseases [facility] M [phone] O [phone] Subjective Date of service: 07/03/20 Principal diagnosis: Sepsis UTI Interval history: Remains confused. No fever. Nonverbal. Objective - Exam Narrative Exam: General appearance: Alert in NAD confused Eyes: anicteric sclerae, moist conjunctivae; no lid-lag; PERRLA HENT: Normocephalic, Atraumatic; normal external ears, nares open, oropharynx limited, partially edentulous Neck: supple, tracheal midline, no JVD Lungs: CTA, with normal respiratory effort and no intercostal retractions CV: RRR no murmur Abdomen: Soft, non-tender; no masses or hepatosplenomegaly Extremities: no edema, no cyanosis Skin: Sacral area not examined Psych: no agitated Neuro: alert follows simple commands - Constitutional Vitals: Vital Signs Temp Pulse Resp BP Pulse Ox 97.1 F L 104 H 25 H 86/56 95 07/03/20 12:00 07/03/20 13:00 07/03/20 13:00 07/03/20 13:00 07/03/20 12:30 Temperature -Last 24 Hours Temperature 97.1 F Temperature 97.4 F Temperature 97.8 F Temperature 97.6 F Temperature 97.6 F Temperature 97.6 F Temperature 97.4 F - Labs CBC & Chem 7: 07/03/20 05:03 07/03/20 05:03 Labs: Abnormal lab results 07/02/20 07/03/20 07/03/20 Range/Units 13:44 05:03 05:03 WBC 59.5 H* (4.5-11.0) K/mm3 RBC 3.03 L (3.65-5.03) M/mm3 Hgb 8.3 L (11.8-15.2) gm/dl Hct 26.5 L (35.5-45.6) % MCH 27 L (28-32) pg MCHC 31 L (32-34) % RDW 19.6 H (13.2-15.2) % Plt Count 538 H (140-440) K/mm3 Seg Neuts % (Manual) 89.0 H (40.0-70.0) % Lymphocytes % (Manual) 2.0 L (13.4-35.0) % Seg Neutrophils # Man 53.0 H (1.8-7.7) K/mm3 PT 17.5 H (12.2-14.9) Sec. INR 1.45 H (0.87-1.13) Potassium (3.6-5.0) mmol/L Chloride (98-107) mmol/L Carbon Dioxide (22-30) mmol/L BUN (9-20) mg/dL Creatinine (0.8-1.3) mg/dL Glucose (75-100) mg/dL Calcium (8.4-10.2) mg/dL Phosphorus 5.90 H (2.5-4.5) mg/dL Magnesium 1.50 L (1.7-2.3) mg/dL Troponin T (0.00-0.029) ng/mL 07/03/20 Range/Units 05:03 WBC (4.5-11.0) K/mm3 RBC (3.65-5.03) M/mm3 Hgb (11.8-15.2) gm/dl Hct (35.5-45.6) % MCH (28-32) pg MCHC (32-34) % RDW (13.2-15.2) % Plt Count (140-440) K/mm3 Seg Neuts % (Manual) (40.0-70.0) % Lymphocytes % (Manual) (13.4-35.0) % Seg Neutrophils # Man (1.8-7.7) K/mm3 PT (12.2-14.9) Sec. INR (0.87-1.13) Potassium 3.3 L (3.6-5.0) mmol/L Chloride 115.5 H (98-107) mmol/L Carbon Dioxide 9 L* (22-30) mmol/L BUN 52 H (9-20) mg/dL Creatinine 3.2 H (0.8-1.3) mg/dL Glucose 120 H (75-100) mg/dL Calcium 7.2 L (8.4-10.2) mg/dL Phosphorus (2.5-4.5) mg/dL Magnesium (1.7-2.3) mg/dL Troponin T 0.089 H D (0.00-0.029) ng/mL
[2020-07-03] MEDS: FAMOTIDINE 20 MG TAB PO SCH (21:40)
[2020-07-03] MEDS: CEFEPIME/NS 2 GM/100 ML 2 GM/100 ML BAG IV SCH (21:41)
[2020-07-04] MEDS: VANCOMYCIN 250 MG/10 ML ORAL LIQD PO SCH ×6 (01:25→23:50)
[2020-07-04] MEDS: HEPARIN 5,000 UNIT/1 ML VIAL SUB-Q SCH ×3 (05:12→22:31)
[2020-07-04 05:20] LABS: Hematocrit 27.1 % (35.5-45.6); Hemoglobin 8.6 gm/dl (11.8-15.2); Mean Corpuscular HGB Conc 32 % (32-34); Mean Corpuscular Volume 89 fl (84-94); Platelet Count 437 K/mm3 (140-440); Red Blood Count 3.05 M/mm3 (3.65-5.03); Red Cell Distribution Width 19.5 % (13.2-15.2)
[2020-07-04 05:38] LABS: Calcium 7.8 mg/dL (8.4-10.2)
[2020-07-04 06:15] LABS: Anisocytosis 1+; Band Neutrophils # (Manual) 1.2 K/mm3; Eosinophils % (Manual) 0.5 % (0.0-4.3); Monocytes % (Manual) 1.5 % (0.0-7.3); Poikilocytosis 1+; Schistocytes Rare; Total Cells Counted 200
[2020-07-04 06:16] LABS: Burr Cells 1+; Platelet Estimate Consistent w Auto
[2020-07-04] MEDS: MIDODRINE 5 MG TAB PO SCH ×3 (08:47→22:41)
--- NOTE | 2020-07-04 09:40 | Progress Note ---
Assessment and Plan Assessment and plan: Sepsis. Acute kidney injury. Urinary tract infection. Colitis. Metabolic acidosis. Atrial fibrillation Elevated troponin. 07/02/2020. Continue IV fluid hydration. Etiology of acute kidney injury likely secondary to vasomotor nephropathy/prerenal injury. Continue aggressive IV fluid hydration. Follow-up renal ultrasound. Nephrology following. Follow-up stool studies for colitis. Await ID recommendations for IV antibiotics. Consult cardiology for elevated troponin. 07/03/2020. Blood cultures remain negative. Follow-up C. difficile and stool PCR. Continue vancomycin 250 mg p.o. 4 times daily and Flagyl 500 IV every 8 hours. Continue IV vancomycin and cefepime per ID recommendations. Wound care consult. 07/04/2020. Patient continues to have hypotension. Unfortunately unable to give rate control medications due to hypotension. Also, cardiology recommends no anticoagulation given the anemia. Continue midodrine and IV fluid hydration. Patient with significant leukocytosis but blood cultures were found to be negative. Continue antibiotics per ID recommendations for colitis and UTI. Check lactic acid. Continue bicarbonate for metabolic acidosis per nephrology recommendations. History Interval history: 70-year-old -[place] male with a history of dementia coming in from a residential facility presented to the emergency department secondary to worsening weakness. Was found to be hypotensive and requiring multiple IV fluid boluses both in transit as well as in the emergency department. Nephrology consulted secondary to labs indicating acute kidney injury. Urinalysis indicating a urinary tract infection. He also apparently had issues with 2 loose bowel movements in the emergency department. CT scan of the abdomen and pelvis was done without contrast indicating evidence of what seems to be chronic colitis. No new issues overnight. Hospitalist Physical - Constitutional Vitals: Temp Pulse Resp BP Pulse Ox 97.5 F L 105 H 25 H 96/68 95 07/04/20 07:39 07/04/20 08:30 07/04/20 08:30 07/04/20 08:30 07/04/20 08:00 General appearance: Present: other (Altered mental status) - EENT Eyes: Present: PERRL, EOM intact ENT: hearing intact, clear oral mucosa, dentition normal - Neck Neck: Present: supple, normal ROM - Respiratory Respiratory effort: normal Respiratory: bilateral: CTA - Cardiovascular Rhythm: regular Heart Sounds: Present: S1 & S2. Absent: gallop, rub - Extremities Extremities: no ischemia, No edema, Full ROM - Abdominal General gastrointestinal: soft, non-tender, non-distended, normal bowel sounds - Integumentary Integumentary: Present: clear, warm, dry - Neurologic Neurologic: CNII-XII intact, moves all extremities HEART Score - HEART Score Troponin: Troponin T 0.074 ng/mL (0.00-0.029) H 07/04/20 04:58 Results - Labs CBC & Chem 7: 07/04/20 04:58 07/04/20 04:58 Labs: Laboratory Last Values WBC 48.7 K/mm3 (4.5-11.0) H* 07/04/20 04:58 RBC 3.05 M/mm3 (3.65-5.03) L 07/04/20 04:58 Hgb 8.6 gm/dl (11.8-15.2) L 07/04/20 04:58 Hct 27.1 % (35.5-45.6) L 07/04/20 04:58 MCV 89 fl (84-94) 07/04/20 04:58 MCH 28 pg (28-32) 07/04/20 04:58 MCHC 32 % (32-34) 07/04/20 04:58 RDW 19.5 % (13.2-15.2) H 07/04/20 04:58 Plt Count 437 K/mm3 (140-440) 07/04/20 04:58 Add Manual Diff Complete 07/04/20 04:58 Total Counted 200 07/04/20 04:58 Seg Neutrophils % Clinical Trials Nurse 07/04/20 04:58 Seg Neuts % (Manual) 92.5 % (40.0-70.0) H 07/04/20 04:58 Band Neutrophils % 2.5 % 07/04/20 04:58 Lymphocytes % (Manual) 2.0 % (13.4-35.0) L 07/04/20 04:58 Monocytes % (Manual) 1.5 % (0.0-7.3) 07/04/20 04:58 Eosinophils % (Manual) 0.5 % (0.0-4.3) 07/04/20 04:58 Metamyelocytes % 1.0 % 07/04/20 04:58 Myelocytes % 1.0 % 07/03/20 05:03 Nucleated RBC % Not Reportable 07/04/20 04:58 Seg Neutrophils # Man 45.0 K/mm3 (1.8-7.7) H 07/04/20 04:58 Band Neutrophils # 1.2 K/mm3 07/04/20 04:58 Lymphocytes # (Manual) 1.0 K/mm3 (1.2-5.4) L 07/04/20 04:58 Abs React Lymphs (Man) 0.0 K/mm3 07/04/20 04:58 Monocytes # (Manual) 0.7 K/mm3 (0.0-0.8) 07/04/20 04:58 Eosinophils # (Manual) 0.2 K/mm3 (0.0-0.4) 07/04/20 04:58 Basophils # (Manual) 0.0 K/mm3 (0.0-0.1) 07/04/20 04:58 Metamyelocytes # 0.5 K/mm3 07/04/20 04:58 Myelocytes # 0.0 K/mm3 07/04/20 04:58 Promyelocytes # 0.0 K/mm3 07/04/20 04:58 Blast Cells # 0.0 K/mm3 07/04/20 04:58 Pathologist Review 07/01/20 21:00 WBC Morphology Not Reportable 07/04/20 04:58 Hypersegmented Neuts Not Reportable 07/04/20 04:58 Hyposegmented Neuts Not Reportable 07/04/20 04:58 Hypogranular Neuts Not Reportable 07/04/20 04:58 Smudge Cells Not Reportable 07/04/20 04:58 Toxic Granulation Not Reportable 07/04/20 04:58 Toxic Vacuolation Not Reportable 07/04/20 04:58 Dohle Bodies Not Reportable 07/04/20 04:58 Pelger-Huet Anomaly Not Reportable 07/04/20 04:58 Jeanna Rods Not Reportable 07/04/20 04:58 Platelet Estimate Consistent w auto 07/04/20 04:58 Clumped Platelets Not Reportable 07/04/20 04:58 Plt Clumps, EDTA Not Reportable 07/04/20 04:58 Large Platelets Not Reportable 07/04/20 04:58 Giant Platelets Not Reportable 07/04/20 04:58 Platelet Satelliting Not Reportable 07/04/20 04:58 Plt Morphology Comment Not Reportable 07/04/20 04:58 RBC Morphology Not Reportable 07/04/20 04:58 Dimorphic RBCs Not Reportable 07/04/20 04:58 Polychromasia Not Reportable 07/04/20 04:58 Hypochromasia Not Reportable 07/04/20 04:58 Poikilocytosis 1+ 07/04/20 04:58 Anisocytosis 1+ 07/04/20 04:58 Microcytosis Not Reportable 07/04/20 04:58 Macrocytosis Not Reportable 07/04/20 04:58 Spherocytes Not Reportable 07/04/20 04:58 Pappenheimer Bodies Not Reportable 07/04/20 04:58 Sickle Cells Not Reportable 07/04/20 04:58 Target Cells Not Reportable 07/04/20 04:58 Tear Drop Cells Not Reportable 07/04/20 04:58 Ovalocytes Not Reportable 07/04/20 04:58 Helmet Cells Not Reportable 07/04/20 04:58 [place] Bodies Not Reportable 07/04/20 04:58 [place] Rings Not Reportable 07/04/20 04:58 [place] Cells 1+ 07/04/20 04:58 Bite Cells Not Reportable 07/04/20 04:58 Crenated Cell Not Reportable 07/04/20 04:58 Elliptocytes Not Reportable 07/04/20 04:58 Acanthocytes (Spur) Not Reportable 07/04/20 04:58 Rouleaux Not Reportable 07/04/20 04:58 Hemoglobin C Crystals Not Reportable 07/04/20 04:58 Schistocytes Rare 07/04/20 04:58 Malaria parasites Not Reportable 07/04/20 04:58 Raheem Bodies Not Reportable 07/04/20 04:58 Hem Pathologist Commnt No 07/04/20 04:58 PT 17.5 Sec. (12.2-14.9) H 07/03/20 05:03 INR 1.45 (0.87-1.13) H 07/03/20 05:03 Sodium 141 mmol/L (137-145) 07/04/20 04:58 Potassium 3.8 mmol/L (3.6-5.0) 07/04/20 04:58 Chloride 117.2 mmol/L (98-107) H 07/04/20 04:58 Carbon Dioxide 9 mmol/L (22-30) L* 07/04/20 04:58 Anion Gap 19 mmol/L 07/04/20 04:58 BUN 57 mg/dL (9-20) H 07/04/20 04:58 Creatinine 3.5 mg/dL (0.8-1.3) H 07/04/20 04:58 Estimated GFR 21 ml/min 07/04/20 04:58 BUN/Creatinine Ratio 16 % 07/04/20 04:58 Glucose 138 mg/dL (75-100) H 07/04/20 04:58 Lactic Acid 1.60 mmol/L (0.7-2.0) 07/01/20 23:35 Calcium 7.8 mg/dL (8.4-10.2) L 07/04/20 04:58 Phosphorus 5.90 mg/dL (2.5-4.5) H 07/02/20 13:44 Magnesium 1.50 mg/dL (1.7-2.3) L 07/02/20 13:44 Total Bilirubin 0.20 mg/dL (0.1-1.2) 07/01/20 21:00 AST 27 units/L (5-40) 07/01/20 21:00 ALT 18 units/L (7-56) 07/01/20 21:00 Alkaline Phosphatase 128 units/L (35-129) 07/01/20 21:00 Troponin T 0.074 ng/mL (0.00-0.029) H 07/04/20 04:58 Total Protein 5.6 g/dL (6.3-8.2) L 07/01/20 21:00 Albumin 1.8 g/dL (3.9-5) L 07/01/20 21:00 Albumin/Globulin Ratio 0.5 % 07/01/20 21:00 Triglycerides 38 mg/dL (2-149) 07/01/20 21:00 Cholesterol 62 mg/dL (50-199) 07/01/20 21:00 LDL Cholesterol Direct 19 mg/dL (50-130) L 07/01/20 21:00 HDL Cholesterol 37 mg/dL (40-59) L 07/01/20 21:00 Cholesterol/HDL Ratio 1.67 % 07/01/20 21:00 Procalcitonin 24.35 ng/mL (<0.15) 07/02/20 13:44 Urine Color Yellow (Yellow) 07/01/20 23:17 Urine Turbidity Turbid (Clear) 07/01/20 23:17 Urine pH 6.0 (5.0-7.0) 07/01/20 23:17 Ur Specific Baker 1.012 (1.003-1.030) 07/01/20 23:17 Urine Protein 100 mg/dl mg/dL (Negative) 07/01/20 23:17 Urine Glucose (UA) Neg mg/dL (Negative) 07/01/20 23:17 Urine Ketones Neg mg/dL (Negative) 07/01/20 23:17 Urine Blood Sm (Negative) 07/01/20 23:17 Urine Nitrite Pos (Negative) 07/01/20 23:17 Urine Bilirubin Neg (Negative) 07/01/20 23:17 Urine Urobilinogen < 2.0 mg/dL (<2.0) 07/01/20 23:17 Ur Leukocyte Esterase Lg (Negative) 07/01/20 23:17 Urine WBC (Auto) > 182.0 /HPF (0.0-6.0) H 07/01/20 23:17 Urine RBC (Auto) 42.0 /HPF (0.0-6.0) 07/01/20 23:17 U Epithel Cells (Auto) 6.0 /HPF (0-13.0) 07/01/20 23:17 Urine Bacteria (Auto) 2+ /HPF (Negative) 07/01/20 23:17 Urine WBC Clumps 3+ /HPF 07/01/20 23:17 Urine Mucus 2+ /HPF 07/01/20 23:17 Urine Yeast (Budding) 3+ /HPF 07/01/20 23:17 Urine Creatinine 85.5 mg/dL (0.1-20.0) H 07/02/20 13:27 Urine Sodium 37 mmol/L 07/02/20 13:27 Random Vancomycin 10.4 ug/mL (0-40.0) 07/03/20 05:03 Microbiology: Microbiology 07/01/20 21:00 Peripheral/Venous Blood Culture - Preliminary NO GROWTH AFTER 48 HOURS 07/01/20 21:09 Peripheral/Venous Blood Culture - Preliminary NO GROWTH AFTER 48 HOURS Das/IV: Voiding Method Indwelling Catheter Active Medications - Current Medications Current Medications: Generic Name Dose Route Start Last Admin Trade Name Freq PRN Reason Stop Dose Admin Famotidine 20 mg 07/02/20 22:00 07/03/20 21:40 Famotidine 20 Mg Tab PO 20 mg QHS HARLEY Administration Heparin Sodium (Porcine) 5,000 unit 07/02/20 06:00 07/04/20 05:12 Heparin 5,000 Unit/1 Ml Vial SUB-Q Not Given Q8HR HARLEY Metronidazole 500 mg in 100 mls @ 100 mls/hr 07/02/20 08:00 07/03/20 10:37 Flagyl 500 Mg/100 Ml IV 100 mls/hr Q8H HARLEY Administration Protocol Cefepime HCl 2 gm in 100 mls @ 200 mls/hr 07/02/20 22:00 07/03/20 21:41 Cefepime/Ns 2 Gm/100 Ml IV 200 mls/hr Q24H HARLEY Administration Protocol Sodium Bicarbonate 150 meq/ 1,150 mls @ 75 mls/hr 07/03/20 11:00 07/03/20 10:41 Dextrose IV 75 mls/hr DIRECT HARLEY Administration Magnesium Hydroxide 30 ml 07/02/20 01:22 Magnesium Hydroxide (Mom) Oral Liqd Udc PO Q4H PRN Constipation Midodrine 10 mg 07/02/20 14:00 07/04/20 08:47 Midodrine 5 Mg Tab PO 07/05/20 08:01 10 mg TID HARLEY Administration Morphine Sulfate 2 mg 07/02/20 01:22 Morphine 2 Mg/1 Ml Inj IV Q4H PRN Pain, Moderate (4-6) Ondansetron HCl 4 mg 07/02/20 01:22 Ondansetron 4 Mg/2 Ml Inj IV Q8H PRN Nausea And Vomiting Sodium Chloride 10 ml 07/02/20 10:00 07/03/20 21:41 Sodium Chloride 0.9% 10 Ml Flush Syringe IV 10 ml BID HARLEY Administration Sodium Chloride 10 ml 07/02/20 01:22 Sodium Chloride 0.9% 10 Ml Flush Syringe IV PRN PRN LINE FLUSH Vancomycin HCl 250 mg 07/02/20 14:00 07/04/20 08:48 Vancomycin 250 Mg/10 Ml Oral Liqd PO 250 mg Q6H HARLEY Administration Protocol Nutrition/Malnutrition Assess - Dietary Evaluation Nutrition/Malnutrition Findings: Nutrition Notes Start: 07/02/20 14:33 Freq: Status: Active Protocol: Document 07/02/20 14:33 AL (Rec: 07/02/20 14:47 AL [id number]) Co-Sign 07/02/20 14:33 LP Nutrition Notes Need for Assessment generated from: MD Order,Education Initial or Follow up Assessment Current Diagnosis Acute Kidney Injury,Heart Failure Other Pertinent Diagnosis C diff Current Diet Cardiac Diet Labs/Tests Na 135 BUN 51 Cr 3.1 Pertinent Medications NS at 150 ml/hr Height 5 ft 7 in Weight 60.8 kg [place] Body Weight (kg) 67.27 BMI 20.9 Weight Status Appropriate Subjective/Other Information MD consult for diet education. Pt reports losing weight, but unaware of how much weight lost. Pt reports having good appetite, but just can't eat. Per RN, pt is eating 25% of meals and suggests Nepro. At rounds, Dr ordered pt to recieve swallow eval. Burn Absent Trauma Absent Skin Integrity/Comment Sacral wound Current % PO Poor (25-49%) Body Fat Depletion Mild depletion (non-severe) Reduced Bar Tacker Strength Measurably Reduced (severe) #3 Nutrition Diagnosis Food and nutrition-related knowledge deficit Etiology heart failure, HTN As Evidenced by Signs and Symptoms Pt never recieved diet education before. #2 Nutrition Diagnosis Increased nutrient needs ( specify in comment below) Comments: protein Etiology Need for wound healing As Evidenced by Signs and Symptoms Sacral wound #1 Nutrition Diagnosis Malnutrition Etiology paraplegia, dementia As Evidenced by Signs and Symptoms reduced steam box tender strength and body -fat depletion Is patient on ventilator? No Is Patient Ambulatory and/or Out of Bed No REE-([place] [facility]-confined to bed) [phone] Calculation [facility]ations [facility] Additional Notes Protein: 73-90 g (1.2-1.5 g/kg ) Fluid: 1012-0037 mL or per MD order. Nutrition Intervention Change Diet Order: Continue current diet unless SAND CLEANING MACHINE OPERATOR recommends something else. Add Supplement/Snack (indicate name/kcal Nepro BID /protein ) Provides kCal: 950 Provides Protein (gm) 40 Teaching Recipient Patient Learning Readiness Fair Teaching Methods Discussion,Handout Response to Teaching Verbalize understanding Education Handouts Provided General Healthful Nutrition Tips. Barriers to Learning Auditory RD phone number provided Yes Patient aware of follow up options Yes Goal #1 Meet at least 75% of estimated energy and protein needs. Goal #2 ONS tolerance. Anticipated Discharge Needs: Unable to determine at this time. Follow-Up By: 07/11/20 Additional Comments FU for SAND CLEANING MACHINE OPERATOR recommendations, intakes, and ONS tolerance.
--- NOTE | 2020-07-04 11:42 | Electrocardiograph Report ---
[facility] Test Date: 2020-07-02 Test Time: 00:18:51 Pat Name: EUGENIA LIZAMA JR Department: Room: A267 Gender: M Diamond Picker: FRANCES : [id number] Requested By: REDD DA SILVA Order Number: [id number] Reading MD: Radha Hernandez Measurements Intervals [place] Rate: 105 P: 0 MA: 166 QRS: 59 QRSD: 84 T: 106 QT: 402 QTc: 532 Interpretive Statements Atrial fibrillation Nonspecific T abnrm, anterolateral leads Prolonged QT interval No previous ECG available for comparison Electronically Signed On 07-04-2020 11:42:26 EDT by Radha Hernandez
--- NOTE | 2020-07-04 13:20 | Progress Note ---
Assessment and Plan Septic shock, presumably Urinary tract infection Sacral decubitus ulcer present on arrival Acute kidney injury Possible Clostridium difficile colitis Leukocytosis Non-ST elevation myocardial infarction Sacral osteomyelitis Severe protein calorie malnutrition Anemia that is normocytic Metabolic acidosis - prn supplemental oxygen to keep O2 sats > 90% - prn bronchodilators (ERIK) with pulm hygiene per RT - continue antiinfective's per ID recommendations - continue to avoid nephrotoxins, renally dose all medications - continue mobility protocols to prevent pressure ulcers - PT/OT as tolerated - Wound care per RN/WCT - continue accuchecks with glycemic control per SSI for target blood glucose < 180 mg/dL - prn analgesia per pain score - home oxygen evaluation at discharge - GI & VTE prophylaxis - Flu & pneumovax per protocol - Pulmonary out patient follow up for PFTs and optimization of respiratory status - continue other care per attending / other consultants ... improved ... re-evaluate in am & prn Subjective Principal diagnosis: Septic shock; UTI; Sacral decubitus; FRED; C-diff colitis; NSTEMI Interval history: Patient is seen today for: Septic shock; UTI; Sacral decubitus; FRED; Possible Clostridium difficile colitis; NSTEMI; Metabolic acidosis Seen and examined at bedside; 24hour events reviewed; nursing and respiratory care staff consulted; no adverse overnight events reported to me; resting in bed; no acute distress; no emesis or overt aspiration Objective Vital Signs - 12hr 07/04/20 07/04/20 07/04/20 01:30 02:00 02:30 Temperature Pulse Rate 111 H 98 H 108 H Pulse Rate [ From Monitor] Respiratory 28 H 29 H 31 H Rate Blood Pressure 90/75 97/73 113/70 O2 Sat by Pulse 95 95 93 Oximetry 07/04/20 07/04/20 07/04/20 03:00 03:30 04:00 Temperature 97.6 F Pulse Rate 118 H 109 H 108 H Pulse Rate [ 107 H From Monitor] Respiratory 30 H 29 H 31 H Rate Blood Pressure 109/67 116/71 122/75 O2 Sat by Pulse 95 68 L 95 Oximetry 07/04/20 07/04/20 07/04/20 04:30 05:00 05:30 Temperature Pulse Rate 96 H 117 H 116 H Pulse Rate [ From Monitor] Respiratory 29 H 32 H 27 H Rate Blood Pressure 116/71 116/73 104/58 O2 Sat by Pulse 84 33 L 97 Oximetry 07/04/20 07/04/20 07/04/20 06:00 06:30 07:00 Temperature Pulse Rate 96 H 94 H 92 H Pulse Rate [ From Monitor] Respiratory 26 H 25 H 21 Rate Blood Pressure 107/71 111/68 109/65 O2 Sat by Pulse 95 95 Oximetry 07/04/20 07/04/20 07/04/20 07:30 07:39 08:00 Temperature 97.5 F L Pulse Rate 98 H 102 H Pulse Rate [ 110 H From Monitor] Respiratory 32 H 21 Rate Blood Pressure 109/65 113/81 O2 Sat by Pulse 94 98 Oximetry 07/04/20 07/04/20 07/04/20 08:30 09:00 09:30 Temperature Pulse Rate 105 H 118 H 114 H Pulse Rate [ From Monitor] Respiratory 25 H 30 H 34 H Rate Blood Pressure 96/68 96/68 113/72 O2 Sat by Pulse 89 Oximetry 07/04/20 07/04/20 07/04/20 10:00 10:30 11:00 Temperature Pulse Rate 122 H 102 H 89 Pulse Rate [ From Monitor] Respiratory 26 H 24 23 Rate Blood Pressure 113/72 203/180 203/180 O2 Sat by Pulse Oximetry 07/04/20 12:31 Temperature 97.9 F Pulse Rate Pulse Rate [ From Monitor] Respiratory Rate Blood Pressure O2 Sat by Pulse Oximetry Constitutional: no acute distress, alert Eyes: non-icteric ENT: oropharynx moist Neck: supple Effort: normal Ascultation: Bilateral: diminished breath sounds, rhonchi Cardiovascular: regular rate and rhythm Gastrointestinal: normoactive bowel sounds, non-distended Integumentary: normal Extremities: no cyanosis Neurologic: normal mental status, non-focal exam Psychiatric: mood appropriate, affect normal CBC and BMP: 07/05/20 11:05 07/05/20 05:59 ABG, PT/INR, D-dimer: PT/INR, D-dimer PT 17.5 Sec. (12.2-14.9) H 07/03/20 05:03 INR 1.45 (0.87-1.13) H 07/03/20 05:03 Abnormal lab findings: Abnormal Labs 07/01/20 07/01/20 07/01/20 21:00 21:00 23:17 WBC 47.5 H* RBC 3.05 L Hgb 8.5 L Hct 28.3 L MCH MCHC 30 L RDW 19.7 H Plt Count Seg Neuts % (Manual) 90.0 H Lymphocytes % (Manual) 6.0 L Seg Neutrophils # Man 42.8 H Lymphocytes # (Manual) Monocytes # (Manual) 1.9 H PT INR Sodium 135 L Potassium Chloride 109.5 H Carbon Dioxide 10 L BUN 51 H Creatinine 3.1 H Glucose 114 H POC Glucose Calcium 7.3 L Phosphorus Magnesium Troponin T 0.149 H* Total Protein 5.6 L Albumin 1.8 L LDL Cholesterol Direct 19 L HDL Cholesterol 37 L Urine WBC (Auto) > 182.0 H Urine Creatinine 07/02/20 07/02/20 07/03/20 13:27 13:44 05:03 WBC 59.5 H* RBC 3.03 L Hgb 8.3 L Hct 26.5 L MCH 27 L MCHC 31 L RDW 19.6 H Plt Count 538 H Seg Neuts % (Manual) 89.0 H Lymphocytes % (Manual) 2.0 L Seg Neutrophils # Man 53.0 H Lymphocytes # (Manual) Monocytes # (Manual) PT INR Sodium Potassium Chloride Carbon Dioxide BUN Creatinine Glucose POC Glucose Calcium Phosphorus 5.90 H Magnesium 1.50 L Troponin T Total Protein Albumin LDL Cholesterol Direct HDL Cholesterol Urine WBC (Auto) Urine Creatinine 85.5 H 07/03/20 07/03/20 07/04/20 05:03 05:03 04:58 WBC 48.7 H* RBC 3.05 L Hgb 8.6 L Hct 27.1 L MCH MCHC RDW 19.5 H Plt Count Seg Neuts % (Manual) 92.5 H Lymphocytes % (Manual) 2.0 L Seg Neutrophils # Man 45.0 H Lymphocytes # (Manual) 1.0 L Monocytes # (Manual) PT 17.5 H INR 1.45 H Sodium Potassium 3.3 L Chloride 115.5 H Carbon Dioxide 9 L* BUN 52 H Creatinine 3.2 H Glucose 120 H POC Glucose Calcium 7.2 L Phosphorus Magnesium Troponin T 0.089 H D Total Protein Albumin LDL Cholesterol Direct HDL Cholesterol Urine WBC (Auto) Urine Creatinine 07/04/20 07/04/20 04:58 11:38 WBC RBC Hgb Hct MCH MCHC RDW Plt Count Seg Neuts % (Manual) Lymphocytes % (Manual) Seg Neutrophils # Man Lymphocytes # (Manual) Monocytes # (Manual) PT INR Sodium Potassium Chloride 117.2 H Carbon Dioxide 9 L* BUN 57 H Creatinine 3.5 H Glucose 138 H POC Glucose 159 H Calcium 7.8 L Phosphorus Magnesium Troponin T 0.074 H Total Protein Albumin LDL Cholesterol Direct HDL Cholesterol Urine WBC (Auto) Urine Creatinine Allied health notes reviewed: nursing
--- NOTE | 2020-07-04 13:42 | Progress Note ---
Assessment and Plan Cultures: Blood culture 07/02/2020 no growth today C. difficile PCR positive Assessment: 70-year-old male with history of paraplegia, dementia, chronic sacral decubitus ulcer, peripheral vascular disease, CHF, hypertension, vertebral sacral osteomyelitis admitted on 07/02/2020 secondary to abnormal labs at the retirement. WBC was found to be 43.2, afebrile today patient stools: #Severe sepsis: Leukocytosis better 49K-->57-->48K, likely secondary to C. difficile colitis. #Colitis: CT shows chronic colitis. Patient with large liquid bowel movements in route to the hospital x 4. Suspect C. difficile colitis #Complicated UTI:P CT shows left kidney stone nonobstructive. #FRED: Likely due to sepsis/dehydration. Not better. #Sacral decubitus: Not Infected, needs wound care evaluation. Apparently recently treated. Recommendations: -Hem consult pending -Continue oral vancomycin increase to 500 mg p.o. 4 times daily D3 -Continue metronidazole 500 g IV every 8 hours D3 -Stop cefepime D3 -Obtain wound care consult pending -Sacral offloading -Follow-up blood cultures -Monitor leukocytosis Will follow. Nunu Barroso MD Infectious Diseases [employer] [facility] ([facility]) M [phone] O [phone] Subjective Date of service: 07/04/20 Principal diagnosis: Sepsis UTI Interval history: Remains confused. No fever. Nonverbal. Objective - Exam Narrative Exam: General appearance: Alert in NAD confused Eyes: anicteric sclerae, moist conjunctivae; no lid-lag; PERRLA HENT: Normocephalic, Atraumatic; normal external ears, nares open, oropharynx limited, partially edentulous Neck: supple, tracheal midline, no JVD Lungs: CTA, with normal respiratory effort and no intercostal retractions CV: RRR no murmur Abdomen: Soft, non-tender; no masses or hepatosplenomegaly Extremities: no edema, no cyanosis Skin: Sacral area not examined Psych: no agitated Neuro: alert follows simple commands - Constitutional Vitals: Vital Signs Temp Pulse Resp BP Pulse Ox 97.9 F 89 23 203/180 89 07/04/20 12:31 07/04/20 11:00 07/04/20 11:00 07/04/20 11:00 07/04/20 09:00 Temperature -Last 24 Hours Temperature 97.9 F Temperature 97.5 F Temperature 97.6 F Temperature 97.3 F Temperature 97.6 F - Labs CBC & Chem 7: 07/04/20 04:58 07/04/20 04:58 Labs: Abnormal lab results 07/04/20 07/04/20 07/04/20 Range/Units 04:58 04:58 11:38 WBC 48.7 H* (4.5-11.0) K/mm3 RBC 3.05 L (3.65-5.03) M/mm3 Hgb 8.6 L (11.8-15.2) gm/dl Hct 27.1 L (35.5-45.6) % RDW 19.5 H (13.2-15.2) % Seg Neuts % (Manual) 92.5 H (40.0-70.0) % Lymphocytes % (Manual) 2.0 L (13.4-35.0) % Seg Neutrophils # Man 45.0 H (1.8-7.7) K/mm3 Lymphocytes # (Manual) 1.0 L (1.2-5.4) K/mm3 Chloride 117.2 H (98-107) mmol/L Carbon Dioxide 9 L* (22-30) mmol/L BUN 57 H (9-20) mg/dL Creatinine 3.5 H (0.8-1.3) mg/dL Glucose 138 H (75-100) mg/dL POC Glucose 159 H (70-105) mg/dL Calcium 7.8 L (8.4-10.2) mg/dL Troponin T 0.074 H (0.00-0.029) ng/mL
[2020-07-04] MEDS: metroNIDAZOLE/NS 500 MG/100 ML 500 MG/100 ML BAG IV SCH ×4 (14:03→22:31)
--- NOTE | 2020-07-04 14:28 | Progress Note ---
Assessment and Plan - Patient Problems (1) FRED (acute kidney injury) Current Visit: Yes Status: Acute Plan to address problem: Likely in the setting of prerenal injury in the setting of urinary tract infection and possible exacerbation of colitis with previous history of C. difficile colitis per nursing staff. Agree with current regimen with aggressive IV fluid hydration and hemodynamic management. Antibiotics to target urinary tract infection. Will obtain a renal ultrasound along with urine electrolytes for further evaluation. Please avoid all nephrotoxins at this time given his acute kidney injury. We will be monitoring carefully. We will need to make sure that his renal toe pressures remain above 65 mmHg which to have been at this time. He has not required pressors at this time. (2) Metabolic acidosis Current Visit: Yes Status: Acute Plan to address problem: In the setting of acute kidney injury with questionable history of diarrheal symptoms and apparently finding of colitis that is chronic in nature on his most recent CT scan. We are maintaining patient on IV fluid hydration with D5W+150 meq NaHCO3 at 75 cc/hr. (3) C. difficile colitis Current Visit: Yes Status: Acute Plan to address problem: C. difficile PCR is positive at this time. ID recommendations appreciated. (4) Complicated urinary tract infection Current Visit: Yes Status: Acute Plan to address problem: Please ensure that antibiotics are dosed appropriately for his decreased renal function. Subjective Date of service: 07/04/20 Principal diagnosis: Sepsis UTI Interval history: C.Diff PCR is positive. Renal function noted. Started on sodium bicarbonate gtt. Objective - Vital Signs Vital signs: Vital Signs - 12hr 07/04/20 07/04/20 07/04/20 02:30 03:00 03:30 Temperature Pulse Rate 108 H 118 H 109 H Pulse Rate [ From Monitor] Respiratory 31 H 30 H 29 H Rate Blood Pressure 113/70 109/67 116/71 O2 Sat by Pulse 93 95 68 L Oximetry 07/04/20 07/04/20 07/04/20 04:00 04:30 05:00 Temperature 97.6 F Pulse Rate 108 H 96 H 117 H Pulse Rate [ 107 H From Monitor] Respiratory 31 H 29 H 32 H Rate Blood Pressure 122/75 116/71 116/73 O2 Sat by Pulse 95 84 33 L Oximetry 07/04/20 07/04/20 07/04/20 05:30 06:00 06:30 Temperature Pulse Rate 116 H 96 H 94 H Pulse Rate [ From Monitor] Respiratory 27 H 26 H 25 H Rate Blood Pressure 104/58 107/71 111/68 O2 Sat by Pulse 97 95 Oximetry 07/04/20 07/04/20 07/04/20 07:00 07:30 07:39 Temperature 97.5 F L Pulse Rate 92 H 98 H Pulse Rate [ From Monitor] Respiratory 21 32 H Rate Blood Pressure 109/65 109/65 O2 Sat by Pulse 95 94 Oximetry 07/04/20 07/04/20 07/04/20 08:00 08:30 09:00 Temperature Pulse Rate 102 H 105 H 118 H Pulse Rate [ 110 H From Monitor] Respiratory 21 25 H 30 H Rate Blood Pressure 113/81 96/68 96/68 O2 Sat by Pulse 98 89 Oximetry 07/04/20 07/04/20 07/04/20 09:30 10:00 10:30 Temperature Pulse Rate 114 H 122 H 102 H Pulse Rate [ From Monitor] Respiratory 34 H 26 H 24 Rate Blood Pressure 113/72 113/72 203/180 O2 Sat by Pulse Oximetry 07/04/20 07/04/20 11:00 12:31 Temperature 97.9 F Pulse Rate 89 Pulse Rate [ From Monitor] Respiratory 23 Rate Blood Pressure 203/180 O2 Sat by Pulse Oximetry - General Appearance General appearance: chronically ill EENT: ATNC Neck: no JVD Respiratory: Present: Decreased Breath Sounds Cardiology: regular Gastrointestinal: normal Integumentary: ulcer Musculoskeletal: deferred Psychiatric: cooperative - Lab 07/04/20 04:58 07/04/20 04:58 Most recent lab results Calcium 7.8 mg/dL (8.4-10.2) L 07/04/20 04:58 Phosphorus 5.90 mg/dL (2.5-4.5) H 07/02/20 13:44 Magnesium 1.50 mg/dL (1.7-2.3) L 07/02/20 13:44 Urine Creatinine 85.5 mg/dL (0.1-20.0) H 07/02/20 13:27 Urine Sodium 37 mmol/L 07/02/20 13:27 - Allied health notes Allied health notes reviewed: nursing Medications & Allergies - Medications Allergies/Adverse Reactions: Allergies No Known Allergies Allergy (Verified 07/01/20 23:23) Home Medications: Home Medications Medication Instructions Recorded Confirmed Last Taken Type Acetaminophen [Aphen] 325 mg PO PRN PRN 07/02/20 07/02/20 Unknown History Amlodipine Besylate [Norvasc] 10 mg PO DAILY 07/02/20 07/02/20 Unknown History Ascorbic Acid/Ascorbate Sodium 500 mg PO DAILY 07/02/20 07/02/20 Unknown History [Vit C-Alyce Hips 500 mg Chew Tb] Aspirin [Adult Aspirin] 81 mg PO DAILY 07/02/20 07/02/20 Unknown History AtorvaSTATin [Lipitor] 10 mg PO QHS 07/02/20 07/02/20 Unknown History Ciprofloxacin HCl 500 mg PO Q8HR 07/02/20 07/02/20 Unknown History Diclofenac 1% [Diclofenac 1% 1 applic TP Q6HR 07/02/20 07/02/20 Unknown History topical gel] Epoetin Baljeet [Procrit] 3,000 unit SQ QWEEK 07/02/20 07/02/20 Unknown History Heparin Sodium,Porcine [Heparin 5,000 unit SUB-Q Q8HR 07/02/20 07/02/20 Unknown History Sodium] Ipratropium/Albuterol Sulfate 1 ampul IH Q6HR 07/02/20 07/02/20 Unknown History [DUONEB *Not for PRN Use*] Lispro Insulin [HumaLOG] 0 unit SQ ACHS 07/02/20 07/02/20 Unknown History Multivit-Minerals/Folic Acid 1 tab PO DAILY 07/02/20 07/02/20 Unknown History [Adult One Daily Multivit Tab] PANTOPRAZOLE SODIUM (nf) [Protonix 40 mg PO QAM 07/02/20 07/02/20 Unknown History GRANULES] Zinc Sulfate 220 mg PO DAILY 07/02/20 07/02/20 Unknown History allopurinoL [Zyloprim] 100 mg PO QDAY 07/02/20 07/02/20 Unknown History hydrALAZINE [Apresoline TAB] 100 mg PO TID 07/02/20 07/02/20 Unknown History Active Medications: Generic Name Dose Route Start Last Admin Trade Name Freq PRN Reason Stop Dose Admin Famotidine 20 mg 07/02/20 22:00 07/03/20 21:40 Famotidine 20 Mg Tab PO 20 mg QHS [facility] Administration Heparin Sodium (Porcine) 5,000 unit 07/02/20 06:00 07/04/20 14:01 Heparin 5,000 Unit/1 Ml Vial SUB-Q 5,000 unit Q8HR [facility] Administration Metronidazole 500 mg in 100 mls @ 100 mls/hr 07/02/20 08:00 07/04/20 14:03 Flagyl 500 Mg/100 Ml IV 100 mls/hr Q8H [facility] Administration Protocol Sodium Bicarbonate 150 meq/ 1,150 mls @ 75 mls/hr 07/03/20 11:00 07/03/20 10:41 Dextrose IV 75 mls/hr DIRECT [facility] Administration Magnesium Hydroxide 30 ml 07/02/20 01:22 Magnesium Hydroxide (Mom) Oral Liqd Udc PO Q4H PRN Constipation Midodrine 10 mg 07/02/20 14:00 07/04/20 14:01 Midodrine 5 Mg Tab PO 07/05/20 08:01 10 mg TID [facility] Administration Morphine Sulfate 2 mg 07/02/20 01:22 Morphine 2 Mg/1 Ml Inj IV Q4H PRN Pain, Moderate (4-6) Ondansetron HCl 4 mg 07/02/20 01:22 Ondansetron 4 Mg/2 Ml Inj IV Q8H PRN Nausea And Vomiting Sodium Chloride 10 ml 07/02/20 10:00 07/04/20 14:02 Sodium Chloride 0.9% 10 Ml Flush Syringe IV 10 ml BID [facility] Administration Sodium Chloride 10 ml 07/02/20 01:22 Sodium Chloride 0.9% 10 Ml Flush Syringe IV PRN PRN LINE FLUSH Vancomycin HCl 500 mg 07/04/20 14:00 Vancomycin 250 Mg/10 Ml Oral Liqd PO Q6H [facility] Protocol
--- NOTE | 2020-07-04 19:54 | Progress Note ---
Assessment and Plan F/u BMP & Mg in AM. F/u ECG for eval of QTc. No anticoagulation for AF at this time in the setting of anemia. Pt seen in conjunction with Dr. Gómez Kimball, who agrees with the assessment and plan of care. - Patient Problems (1) Sepsis Current Visit: Yes Status: Acute (2) Sacral ulcer Current Visit: Yes Status: Acute (3) Complicated urinary tract infection Current Visit: Yes Status: Acute (4) Colitis Current Visit: Yes Status: Acute (5) FRED (acute kidney injury) Current Visit: Yes Status: Acute (6) Atrial fibrillation with RVR Current Visit: Yes Status: Acute (7) Anemia Current Visit: Yes Status: Acute (8) NSTEMI (non-ST elevated myocardial infarction) Current Visit: Yes Status: Acute Plan to address problem: Type 2 (9) HLD (hyperlipidemia) Current Visit: Yes Status: Chronic Qualifiers: Hyperlipidemia type: mixed hyperlipidemia Qualified Code(s): E78.2 - Mixed hyperlipidemia (10) H/O: HTN (hypertension) Current Visit: Yes Status: Chronic Subjective Date of service: 07/04/20 Principal diagnosis: Sepsis/UTI, FRED, AF with RVR Interval history: Remains hypotensive, requiring Midodrine. Tele reviewed - AF 90s - low 100s. Objective Last Vital Signs Temp 97.9 F 07/04/20 16:28 Pulse 100 H 07/04/20 16:00 Resp 20 07/04/20 16:00 BP 105/52 07/04/20 16:00 Pulse Ox 98 07/04/20 16:00 - Physical Examination General: No Apparent Distress HEENT: Positive: Normocephaly, Mucus Membranes Moist Neck: Positive: neck supple, trachea midline. Negative: JVD/HJR Cardiac: Positive: irregularly irregular, S1/S2 Lungs: Positive: clear to auscultation (bilaterally) Neuro: Positive: Grossly Intact Abdomen: Positive: Soft Skin: Positive: Wound. Negative: Rash Musculoskeletal: No Fluid Collection Extremities: Present: upper extr. pulses, lower extr. pulses. Absent: edema - Labs and Meds CBC 07/04/20 Range/Units 04:58 WBC 48.7 H* (4.5-11.0) K/mm3 RBC 3.05 L (3.65-5.03) M/mm3 Hgb 8.6 L (11.8-15.2) gm/dl Hct 27.1 L (35.5-45.6) % Plt Count 437 (140-440) K/mm3 Comprehensive Metabolic Panel 07/04/20 Range/Units 04:58 Sodium 141 (137-145) mmol/L Potassium 3.8 (3.6-5.0) mmol/L Chloride 117.2 H (98-107) mmol/L Carbon Dioxide 9 L* (22-30) mmol/L BUN 57 H (9-20) mg/dL Creatinine 3.5 H (0.8-1.3) mg/dL Glucose 138 H (75-100) mg/dL Calcium 7.8 L (8.4-10.2) mg/dL - Imaging and Cardiology EKG: report reviewed, image reviewed Echo: report reviewed (07/02/2020 - EF 50-55%, grade 1 diastolic dysfxn, mild MR, mild pulm HTN) - Telemetry EKG Rhythm: Atrial Fibrillation - EKG Supraventricular dysrhythmia: atrial fibrillation Repolarization changes or abnormalities: nonspecific abnormality, ST segment, and/or T wave, Q-T interval prolongation - Allied health notes Allied health notes reviewed: nursing
[2020-07-04] MEDS: FAMOTIDINE 20 MG TAB PO SCH (22:31)
[2020-07-04] MEDS: SODIUM BICARBONATE 150 MEQ in DEXTROSE 5% IN WATER 1,000 ML IV SCH (23:54)
[2020-07-05] MEDS: VANCOMYCIN 250 MG/10 ML ORAL LIQD PO SCH ×4 (03:25→20:33)
[2020-07-05] MEDS: metroNIDAZOLE/NS 500 MG/100 ML 500 MG/100 ML BAG IV SCH ×3 (05:51→21:46)
[2020-07-05] MEDS: HEPARIN 5,000 UNIT/1 ML VIAL SUB-Q SCH ×3 (05:51→21:46)
[2020-07-05 06:44] LABS: Calcium 7.7 mg/dL (8.4-10.2)
[2020-07-05] MEDS ORDERED: POTASSIUM CHLORIDE ER 20 MEQ TAB PO NR (08:05)
--- NOTE | 2020-07-05 08:38 | Progress Note ---
Assessment and Plan - Patient Problems (1) FRED (acute kidney injury) Current Visit: Yes Status: Acute Plan to address problem: Likely in the setting of prerenal injury in the setting of urinary tract infection and possible exacerbation of colitis with previous history of C. difficile colitis per nursing staff. Agree with current regimen with aggressive IV fluid hydration and hemodynamic management. Antibiotics to target urinary tract infection. Will obtain a renal ultrasound along with urine electrolytes for further evaluation. Please avoid all nephrotoxins at this time given his acute kidney injury. We will be monitoring carefully. We will need to make sure that his mean arterial pressures remain above 65 mmHg which to have been at this time. He has not required pressors at this time. Would maintain patient on current IVF hydration. Will increase rate to 100 cc/hr. (2) Metabolic acidosis Current Visit: Yes Status: Acute Plan to address problem: In the setting of acute kidney injury with questionable history of diarrheal symptoms and apparently finding of colitis that is chronic in nature on his most recent CT scan. We are maintaining patient on IV fluid hydration with D5W+150 meq NaHCO3 which we will increase to 100 cc/hr. (3) C. difficile colitis Current Visit: Yes Status: Acute Plan to address problem: C. difficile PCR is positive at this time. ID recommendations appreciated. (4) Complicated urinary tract infection Current Visit: Yes Status: Acute Plan to address problem: Please ensure that antibiotics are dosed appropriately for his decreased renal function. Subjective Date of service: 07/05/20 Principal diagnosis: Sepsis/UTI, FRED, AF with RVR Interval history: No acute changes from renal standpoint. Slow rise in serum creatinine noted. Objective - Vital Signs Vital signs: Vital Signs - 12hr 07/04/20 07/04/20 07/04/20 22:00 22:06 22:11 Temperature Pulse Rate 76 75 Respiratory 17 10 L Rate Blood Pressure 91/59 91/59 O2 Sat by Pulse 97 95 Oximetry 07/05/20 04:36 Temperature 97.8 F Pulse Rate 70 Respiratory 20 Rate Blood Pressure 154/78 O2 Sat by Pulse 97 Oximetry - General Appearance General appearance: chronically ill EENT: ATNC Neck: no JVD Respiratory: Present: Clear to Ascultation Cardiology: regular Gastrointestinal: normal Integumentary: ulcer Neurologic: confused, disoriented Musculoskeletal: deferred Psychiatric: cooperative - Lab 07/04/20 04:58 07/05/20 05:59 Most recent lab results Calcium 7.7 mg/dL (8.4-10.2) L 07/05/20 05:59 Phosphorus 5.90 mg/dL (2.5-4.5) H 07/02/20 13:44 Magnesium 1.80 mg/dL (1.7-2.3) 07/05/20 05:59 Urine Creatinine 85.5 mg/dL (0.1-20.0) H 07/02/20 13:27 Urine Sodium 37 mmol/L 07/02/20 13:27 - Allied health notes Allied health notes reviewed: nursing Medications & Allergies - Medications Allergies/Adverse Reactions: Allergies No Known Allergies Allergy (Verified 07/01/20 23:23) Home Medications: Home Medications Medication Instructions Recorded Confirmed Last Taken Type Acetaminophen [Aphen] 325 mg PO PRN PRN 07/02/20 07/02/20 Unknown History Amlodipine Besylate [Norvasc] 10 mg PO DAILY 07/02/20 07/02/20 Unknown History Ascorbic Acid/Ascorbate Sodium 500 mg PO DAILY 07/02/20 07/02/20 Unknown History [Vit C-Alyce Hips 500 mg Chew Tb] Aspirin [Adult Aspirin] 81 mg PO DAILY 07/02/20 07/02/20 Unknown History AtorvaSTATin [Lipitor] 10 mg PO QHS 07/02/20 07/02/20 Unknown History Ciprofloxacin HCl 500 mg PO Q8HR 07/02/20 07/02/20 Unknown History Diclofenac 1% [Diclofenac 1% 1 applic TP Q6HR 07/02/20 07/02/20 Unknown History topical gel] Epoetin Baljeet [Procrit] 3,000 unit SQ QWEEK 07/02/20 07/02/20 Unknown History Heparin Sodium,Porcine [Heparin 5,000 unit SUB-Q Q8HR 07/02/20 07/02/20 Unknown History Sodium] Ipratropium/Albuterol Sulfate 1 ampul IH Q6HR 07/02/20 07/02/20 Unknown History [DUONEB *Not for PRN Use*] Lispro Insulin [HumaLOG] 0 unit SQ ACHS 07/02/20 07/02/20 Unknown History Multivit-Minerals/Folic Acid 1 tab PO DAILY 07/02/20 07/02/20 Unknown History [Adult One Daily Multivit Tab] PANTOPRAZOLE SODIUM (nf) [Protonix 40 mg PO QAM 07/02/20 07/02/20 Unknown History GRANULES] Zinc Sulfate 220 mg PO DAILY 07/02/20 07/02/20 Unknown History allopurinoL [Zyloprim] 100 mg PO QDAY 07/02/20 07/02/20 Unknown History hydrALAZINE [Apresoline TAB] 100 mg PO TID 07/02/20 07/02/20 Unknown History Active Medications: Generic Name Dose Route Start Last Admin Trade Name Freq PRN Reason Stop Dose Admin Atorvastatin Calcium 10 mg 07/04/20 22:00 07/04/20 22:31 Atorvastatin 10 Mg Tab PO 10 mg QHS [facility] Administration Famotidine 20 mg 07/02/20 22:00 07/04/20 22:31 Famotidine 20 Mg Tab PO 20 mg QHS [facility] Administration Heparin Sodium (Porcine) 5,000 unit 07/02/20 06:00 07/05/20 05:51 Heparin 5,000 Unit/1 Ml Vial SUB-Q 5,000 unit Q8HR [facility] Administration Sodium Bicarbonate 150 meq/ 1,150 mls @ 75 mls/hr 07/03/20 11:00 07/04/20 23:54 Dextrose IV 75 mls/hr DIRECT [facility] Administration Metronidazole 500 mg in 100 mls @ 100 mls/hr 07/04/20 22:00 07/05/20 05:51 Flagyl 500 Mg/100 Ml IV 100 mls/hr Q8HR [facility] Administration Protocol Magnesium Hydroxide 30 ml 07/02/20 01:22 Magnesium Hydroxide (Mom) Oral Liqd Udc PO Q4H PRN Constipation Morphine Sulfate 2 mg 07/02/20 01:22 Morphine 2 Mg/1 Ml Inj IV Q4H PRN Pain, Moderate (4-6) Ondansetron HCl 4 mg 07/02/20 01:22 Ondansetron 4 Mg/2 Ml Inj IV Q8H PRN Nausea And Vomiting Potassium Chloride 40 meq 07/05/20 08:05 Potassium Chloride Er 20 Meq Tab PO 07/05/20 15:00 ONCE NR Sodium Chloride 10 ml 07/02/20 10:00 07/04/20 22:31 Sodium Chloride 0.9% 10 Ml Flush Syringe IV 10 ml BID [facility] Administration Sodium Chloride 10 ml 07/02/20 01:22 Sodium Chloride 0.9% 10 Ml Flush Syringe IV PRN PRN LINE FLUSH Vancomycin HCl 500 mg 07/04/20 14:00 07/05/20 03:25 Vancomycin 250 Mg/10 Ml Oral Liqd PO 500 mg Q6H [facility] Administration Protocol
--- NOTE | 2020-07-05 08:39 | Progress Note ---
Assessment and Plan Assessment and plan: Sepsis. Acute kidney injury. Urinary tract infection. Colitis. Metabolic acidosis. Atrial fibrillation Elevated troponin. 07/02/2020. Continue IV fluid hydration. Etiology of acute kidney injury likely secondary to vasomotor nephropathy/prerenal injury. Continue aggressive IV fluid hydration. Follow-up renal ultrasound. Nephrology following. Follow-up stool studies for colitis. Await ID recommendations for IV antibiotics. Consult cardiology for elevated troponin. 07/03/2020. Blood cultures remain negative. Follow-up C. difficile and stool PCR. Continue vancomycin 250 mg p.o. 4 times daily and Flagyl 500 IV every 8 hours. Continue IV vancomycin and cefepime per ID recommendations. Wound care consult. 07/04/2020. Patient continues to have hypotension. Unfortunately unable to give rate control medications due to hypotension. Also, cardiology recommends no anticoagulation given the anemia. Continue midodrine and IV fluid hydration. Patient with significant leukocytosis but blood cultures were found to be negative. Continue antibiotics per ID recommendations for colitis and UTI. Check lactic acid. Continue bicarbonate for metabolic acidosis per nephrology recommendations. 07/05/2020. Hypotension appears to be improved this morning. No anticoagulation for AF at this time in the setting of anemia. Start rate control medications per cardiology. Continue oral vancomycin and IV Flagyl for the colitis. Blood and urine cultures are negative. Wound care consult for sacral decubitus. History Interval history: 70-year-old -Russian male with a history of dementia coming in from a long-term facility presented to the emergency department secondary to worsening weakness. Was found to be hypotensive and requiring multiple IV fluid boluses both in transit as well as in the emergency department. Nephrology consulted secondary to labs indicating acute kidney injury. Urinalysis indicating a urinary tract infection. He also apparently had issues with 2 loose bowel movements in the emergency department. CT scan of the abdomen and pelvis was done without contrast indicating evidence of what seems to be chronic colitis. No new issues overnight. Hospitalist Physical - Constitutional Vitals: Temp Pulse Resp BP Pulse Ox 97.8 F 70 20 154/78 97 07/05/20 04:36 07/05/20 04:36 07/05/20 04:36 07/05/20 04:36 07/05/20 04:36 General appearance: Present: other (Altered mental status) - EENT Eyes: Present: PERRL, EOM intact ENT: hearing intact, clear oral mucosa, dentition normal - Neck Neck: Present: supple, normal ROM - Respiratory Respiratory effort: normal Respiratory: bilateral: CTA - Cardiovascular Rhythm: regular Heart Sounds: Present: S1 & S2. Absent: gallop, rub - Extremities Extremities: no ischemia, No edema, Full ROM - Abdominal General gastrointestinal: soft, non-tender, non-distended, normal bowel sounds - Integumentary Integumentary: Present: clear, warm, dry - Neurologic Neurologic: CNII-XII intact, moves all extremities HEART Score - HEART Score Troponin: Troponin T 0.074 ng/mL (0.00-0.029) H 07/04/20 04:58 Results - Labs CBC & Chem 7: 07/04/20 04:58 07/05/20 05:59 Labs: Laboratory Last Values WBC 48.7 K/mm3 (4.5-11.0) H* 07/04/20 04:58 RBC 3.05 M/mm3 (3.65-5.03) L 07/04/20 04:58 Hgb 8.6 gm/dl (11.8-15.2) L 07/04/20 04:58 Hct 27.1 % (35.5-45.6) L 07/04/20 04:58 MCV 89 fl (84-94) 07/04/20 04:58 MCH 28 pg (28-32) 07/04/20 04:58 MCHC 32 % (32-34) 07/04/20 04:58 RDW 19.5 % (13.2-15.2) H 07/04/20 04:58 Plt Count 437 K/mm3 (140-440) 07/04/20 04:58 Add Manual Diff Complete 07/04/20 04:58 Total Counted 200 07/04/20 04:58 Seg Neutrophils % Twill Cutter 07/04/20 04:58 Seg Neuts % (Manual) 92.5 % (40.0-70.0) H 07/04/20 04:58 Band Neutrophils % 2.5 % 07/04/20 04:58 Lymphocytes % (Manual) 2.0 % (13.4-35.0) L 07/04/20 04:58 Monocytes % (Manual) 1.5 % (0.0-7.3) 07/04/20 04:58 Eosinophils % (Manual) 0.5 % (0.0-4.3) 07/04/20 04:58 Metamyelocytes % 1.0 % 07/04/20 04:58 Myelocytes % 1.0 % 07/03/20 05:03 Nucleated RBC % Not Reportable 07/04/20 04:58 Seg Neutrophils # Man 45.0 K/mm3 (1.8-7.7) H 07/04/20 04:58 Band Neutrophils # 1.2 K/mm3 07/04/20 04:58 Lymphocytes # (Manual) 1.0 K/mm3 (1.2-5.4) L 07/04/20 04:58 Abs React Lymphs (Man) 0.0 K/mm3 07/04/20 04:58 Monocytes # (Manual) 0.7 K/mm3 (0.0-0.8) 07/04/20 04:58 Eosinophils # (Manual) 0.2 K/mm3 (0.0-0.4) 07/04/20 04:58 Basophils # (Manual) 0.0 K/mm3 (0.0-0.1) 07/04/20 04:58 Metamyelocytes # 0.5 K/mm3 07/04/20 04:58 Myelocytes # 0.0 K/mm3 07/04/20 04:58 Promyelocytes # 0.0 K/mm3 07/04/20 04:58 Blast Cells # 0.0 K/mm3 07/04/20 04:58 Pathologist Review 07/01/20 21:00 WBC Morphology Not Reportable 07/04/20 04:58 Hypersegmented Neuts Not Reportable 07/04/20 04:58 Hyposegmented Neuts Not Reportable 07/04/20 04:58 Hypogranular Neuts Not Reportable 07/04/20 04:58 Smudge Cells Not Reportable 07/04/20 04:58 Toxic Granulation Not Reportable 07/04/20 04:58 Toxic Vacuolation Not Reportable 07/04/20 04:58 Dohle Bodies Not Reportable 07/04/20 04:58 Pelger-Huet Anomaly Not Reportable 07/04/20 04:58 Jeanna Rods Not Reportable 07/04/20 04:58 Platelet Estimate Consistent w auto 07/04/20 04:58 Clumped Platelets Not Reportable 07/04/20 04:58 Plt Clumps, EDTA Not Reportable 07/04/20 04:58 Large Platelets Not Reportable 07/04/20 04:58 Giant Platelets Not Reportable 07/04/20 04:58 Platelet Satelliting Not Reportable 07/04/20 04:58 Plt Morphology Comment Not Reportable 07/04/20 04:58 RBC Morphology Not Reportable 07/04/20 04:58 Dimorphic RBCs Not Reportable 07/04/20 04:58 Polychromasia Not Reportable 07/04/20 04:58 Hypochromasia Not Reportable 07/04/20 04:58 Poikilocytosis 1+ 07/04/20 04:58 Anisocytosis 1+ 07/04/20 04:58 Microcytosis Not Reportable 07/04/20 04:58 Macrocytosis Not Reportable 07/04/20 04:58 Spherocytes Not Reportable 07/04/20 04:58 Pappenheimer Bodies Not Reportable 07/04/20 04:58 Sickle Cells Not Reportable 07/04/20 04:58 Target Cells Not Reportable 07/04/20 04:58 Tear Drop Cells Not Reportable 07/04/20 04:58 Ovalocytes Not Reportable 07/04/20 04:58 Helmet Cells Not Reportable 07/04/20 04:58 [place] Bodies Not Reportable 07/04/20 04:58 Baxter Rings Not Reportable 07/04/20 04:58 Wink Cells 1+ 07/04/20 04:58 Bite Cells Not Reportable 07/04/20 04:58 Crenated Cell Not Reportable 07/04/20 04:58 Elliptocytes Not Reportable 07/04/20 04:58 Acanthocytes (Spur) Not Reportable 07/04/20 04:58 Rouleaux Not Reportable 07/04/20 04:58 Hemoglobin C Crystals Not Reportable 07/04/20 04:58 Schistocytes Rare 07/04/20 04:58 Malaria parasites Not Reportable 07/04/20 04:58 Raheem Bodies Not Reportable 07/04/20 04:58 Hem Pathologist Commnt No 07/04/20 04:58 PT 17.5 Sec. (12.2-14.9) H 07/03/20 05:03 INR 1.45 (0.87-1.13) H 07/03/20 05:03 Sodium 143 mmol/L (137-145) 07/05/20 05:59 Potassium 3.2 mmol/L (3.6-5.0) L 07/05/20 05:59 Chloride 116.0 mmol/L (98-107) H 07/05/20 05:59 Carbon Dioxide 14 mmol/L (22-30) L 07/05/20 05:59 Anion Gap 16 mmol/L 07/05/20 05:59 BUN 60 mg/dL (9-20) H 07/05/20 05:59 Creatinine 3.7 mg/dL (0.8-1.3) H 07/05/20 05:59 Estimated GFR 20 ml/min 07/05/20 05:59 BUN/Creatinine Ratio 16 % 07/05/20 05:59 Glucose 133 mg/dL (75-100) H 07/05/20 05:59 POC Glucose 165 mg/dL (70-105) H 07/04/20 21:56 Lactic Acid 1.60 mmol/L (0.7-2.0) 07/01/20 23:35 Calcium 7.7 mg/dL (8.4-10.2) L 07/05/20 05:59 Phosphorus 5.90 mg/dL (2.5-4.5) H 07/02/20 13:44 Magnesium 1.80 mg/dL (1.7-2.3) 07/05/20 05:59 Total Bilirubin 0.20 mg/dL (0.1-1.2) 07/01/20 21:00 AST 27 units/L (5-40) 07/01/20 21:00 ALT 18 units/L (7-56) 07/01/20 21:00 Alkaline Phosphatase 128 units/L (35-129) 07/01/20 21:00 Troponin T 0.074 ng/mL (0.00-0.029) H 07/04/20 04:58 Total Protein 5.6 g/dL (6.3-8.2) L 07/01/20 21:00 Albumin 1.8 g/dL (3.9-5) L 07/01/20 21:00 Albumin/Globulin Ratio 0.5 % 07/01/20 21:00 Triglycerides 38 mg/dL (2-149) 07/01/20 21:00 Cholesterol 62 mg/dL (50-199) 07/01/20 21:00 LDL Cholesterol Direct 19 mg/dL (50-130) L 07/01/20 21:00 HDL Cholesterol 37 mg/dL (40-59) L 07/01/20 21:00 Cholesterol/HDL Ratio 1.67 % 07/01/20 21:00 Procalcitonin 24.35 ng/mL (<0.15) 07/02/20 13:44 Urine Color Yellow (Yellow) 07/01/20 23:17 Urine Turbidity Turbid (Clear) 07/01/20 23:17 Urine pH 6.0 (5.0-7.0) 07/01/20 23:17 Ur Specific [place] 1.012 (1.003-1.030) 07/01/20 23:17 Urine Protein 100 mg/dl mg/dL (Negative) 07/01/20 23:17 Urine Glucose (UA) Neg mg/dL (Negative) 07/01/20 23:17 Urine Ketones Neg mg/dL (Negative) 07/01/20 23:17 Urine Blood Sm (Negative) 07/01/20 23:17 Urine Nitrite Pos (Negative) 07/01/20 23:17 Urine Bilirubin Neg (Negative) 07/01/20 23:17 Urine Urobilinogen < 2.0 mg/dL (<2.0) 07/01/20 23:17 Ur Leukocyte Esterase Lg (Negative) 07/01/20 23:17 Urine WBC (Auto) > 182.0 /HPF (0.0-6.0) H 07/01/20 23:17 Urine RBC (Auto) 42.0 /HPF (0.0-6.0) 07/01/20 23:17 U Epithel Cells (Auto) 6.0 /HPF (0-13.0) 07/01/20 23:17 Urine Bacteria (Auto) 2+ /HPF (Negative) 07/01/20 23:17 Urine WBC Clumps 3+ /HPF 07/01/20 23:17 Urine Mucus 2+ /HPF 07/01/20 23:17 Urine Yeast (Budding) 3+ /HPF 07/01/20 23:17 Urine Creatinine 85.5 mg/dL (0.1-20.0) H 07/02/20 13:27 Urine Sodium 37 mmol/L 07/02/20 13:27 Random Vancomycin 10.4 ug/mL (0-40.0) 07/03/20 05:03 C. difficile Tox (PCR) Positive (Negative) 07/02/20 12:30 Microbiology: Microbiology 07/01/20 21:00 Peripheral/Venous Blood Culture - Preliminary NO GROWTH AFTER 72 HOURS 07/01/20 21:09 Peripheral/Venous Blood Culture - Preliminary NO GROWTH AFTER 72 HOURS 07/02/20 Unknown Urine,Catheterized - Straight Catheter Urine Culture - Final Das/IV: Voiding Method Indwelling Catheter Active Medications - Current Medications Current Medications: Generic Name Dose Route Start Last Admin Trade Name Freq PRN Reason Stop Dose Admin Atorvastatin Calcium 10 mg 07/04/20 22:00 07/04/20 22:31 Atorvastatin 10 Mg Tab PO 10 mg QHS HARLEY Administration Famotidine 20 mg 07/02/20 22:00 07/04/20 22:31 Famotidine 20 Mg Tab PO 20 mg QHS HARLEY Administration Heparin Sodium (Porcine) 5,000 unit 07/02/20 06:00 07/05/20 05:51 Heparin 5,000 Unit/1 Ml Vial SUB-Q 5,000 unit Q8HR HARLEY Administration Sodium Bicarbonate 150 meq/ 1,150 mls @ 75 mls/hr 07/03/20 11:00 07/04/20 23:54 Dextrose IV 75 mls/hr DIRECT HARLEY Administration Metronidazole 500 mg in 100 mls @ 100 mls/hr 07/04/20 22:00 07/05/20 05:51 Flagyl 500 Mg/100 Ml IV 100 mls/hr Q8HR HARLEY Administration Protocol Magnesium Hydroxide 30 ml 07/02/20 01:22 Magnesium Hydroxide (Mom) Oral Liqd Udc PO Q4H PRN Constipation Morphine Sulfate 2 mg 07/02/20 01:22 Morphine 2 Mg/1 Ml Inj IV Q4H PRN Pain, Moderate (4-6) Ondansetron HCl 4 mg 07/02/20 01:22 Ondansetron 4 Mg/2 Ml Inj IV Q8H PRN Nausea And Vomiting Potassium Chloride 40 meq 07/05/20 08:05 Potassium Chloride Er 20 Meq Tab PO 07/05/20 15:00 ONCE NR Sodium Chloride 10 ml 07/02/20 10:00 07/04/20 22:31 Sodium Chloride 0.9% 10 Ml Flush Syringe IV 10 ml BID HARLEY Administration Sodium Chloride 10 ml 07/02/20 01:22 Sodium Chloride 0.9% 10 Ml Flush Syringe IV PRN PRN LINE FLUSH Vancomycin HCl 500 mg 07/04/20 14:00 07/05/20 03:25 Vancomycin 250 Mg/10 Ml Oral Liqd PO 500 mg Q6H HARLEY Administration Protocol Nutrition/Malnutrition Assess - Dietary Evaluation Nutrition/Malnutrition Findings: Nutrition Notes Start: 07/02/20 14:33 Freq: Status: Active Protocol: Document 07/02/20 14:33 AL (Rec: 07/02/20 14:47 AL [id number]) Co-Sign 07/02/20 14:33 LP Nutrition Notes Need for Assessment generated from: MD Order,Education Initial or Follow up Assessment Current Diagnosis Acute Kidney Injury,Heart Failure Other Pertinent Diagnosis C diff Current Diet Cardiac Diet Labs/Tests Na 135 BUN 51 Cr 3.1 Pertinent Medications NS at 150 ml/hr Height 5 ft 7 in Weight 60.8 kg Remlap Body Weight (kg) 67.27 BMI 20.9 Weight Status Appropriate Subjective/Other Information MD consult for diet education. Pt reports losing weight, but unaware of how much weight lost. Pt reports having good appetite, but just can't eat. Per RN, pt is eating 25% of meals and suggests Nepro. At rounds, ordered pt to recieve swallow eval. 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 No Is Patient Ambulatory and/or Out of Bed No REE-([facility]-confined to bed) 6521.078 Calculation Used for Recommendations [facility] Additional Notes Protein: 73-90 g (1.2-1.5 g/kg ) Fluid: 0687-3932 mL or per MD order. Nutrition Intervention Change Diet Order: Continue current diet unless HORSE TRAINER recommends something else. Add Supplement/Snack (indicate name/kcal Nepro BID /protein ) Provides kCal: 950 Provides Protein (gm) 40 Teaching Recipient Patient Learning Readiness Fair Teaching Methods Discussion,Handout Response to Teaching Verbalize understanding Education Handouts Provided General Healthful Nutrition Tips. Barriers to Learning Auditory RD phone number provided Yes Patient aware of follow up options Yes Goal #1 Meet at least 75% of estimated energy and protein needs. Goal #2 ONS tolerance. Anticipated Discharge Needs: Unable to determine at this time. Follow-Up By: 07/11/20 Additional Comments FU for HORSE TRAINER recommendations, intakes, and ONS tolerance.
[2020-07-05] MEDS: MIDODRINE 5 MG TAB PO SCH (09:58)
[2020-07-05] MEDS: POTASSIUM CHLORIDE ER 20 MEQ TAB PO SCH (10:05)
--- NOTE | 2020-07-05 10:54 | Progress Note ---
Assessment and Plan Telemetry reviewed: A. fib 90s. No events #Elevated troponin * 12-lead reviewed: A. fib 105, no ST segment elevation. Troponin elevated x1, repeat troponin is mildly elevated nonspecific and subacute x2, trending downward. Continue to trend CE's. * Echocardiogram reviewed (07/02/2020): LVEF is 55 to 60%. Mild diastolic dysfunction is present (impaired relaxation pattern). No VSD visualized. RV SF is normal. RVSP is 44 mmHg. Mild pulmonary hypertension. #Atrial fibrillation in setting of severe anemia * Recommend no anticoagulation in setting of severe anemia due to risk of significant bleeding event * Blood pressure is currently stabilized. Initialize metoprolol 6.25 mg twice daily for rate control with strict hold parameters #Hypokalemia in the setting of acute on chronic renal disease * Potassium is being repleted. Nephrology is following #Sepsis secondary to UTI suspected, colitis * Management per primary team, ID is following #DVT Prophylaxis * SCDs ordered. No AC due to severe anemia We will follow This patient was seen in conjunction with Dr. Deloris Kimball who agrees with this assessment and plan of care Subjective Date of service: 07/05/20 Principal diagnosis: Sepsis/UTI, FRED, AF with RVR Interval history: Patient resting in bed. No chest pain or shortness of breath overnight. Telemetry reviewed: A. fib 90s. No events Objective Last Vital Signs Temp 97.8 F 07/05/20 04:36 Pulse 70 07/05/20 04:36 Resp 20 07/05/20 04:36 BP 154/78 07/05/20 04:36 Pulse Ox 97 07/05/20 04:36 - Physical Examination General: No Apparent Distress HEENT: Positive: Normocephaly, Mucus Membranes Moist Neck: Positive: neck supple, trachea midline. Negative: JVD/HJR Lungs: Positive: Normal Exam Neuro: Positive: Grossly Intact Abdomen: Positive: Soft Skin: Positive: Wound. Negative: Rash Musculoskeletal: No Fluid Collection Extremities: Present: upper extr. pulses, lower extr. pulses. Absent: edema - Labs and Meds Comprehensive Metabolic Panel 07/05/20 Range/Units 05:59 Sodium 143 (137-145) mmol/L Potassium 3.2 L (3.6-5.0) mmol/L Chloride 116.0 H (98-107) mmol/L Carbon Dioxide 14 L (22-30) mmol/L BUN 60 H (9-20) mg/dL Creatinine 3.7 H (0.8-1.3) mg/dL Glucose 133 H (75-100) mg/dL Calcium 7.7 L (8.4-10.2) mg/dL - Imaging and Cardiology EKG: report reviewed, image reviewed Echo: report reviewed (07/02/2020 - EF 50-55%, grade 1 diastolic dysfxn, mild MR, mild pulm HTN) - Telemetry EKG Rhythm: Atrial Fibrillation Repolarization changes or abnormalities: nonspecific abnormality, ST segment, an d/or T wave, Q-T interval prolongation - Allied health notes Allied health notes reviewed: nursing
[2020-07-05 11:51] LABS: Hematocrit 27.1 % (35.5-45.6); Hemoglobin 8.8 gm/dl (11.8-15.2); Mean Corpuscular HGB Conc 32 % (32-34); Mean Corpuscular Volume 87 fl (84-94); Platelet Count 544 K/mm3 (140-440); Red Blood Count 3.13 M/mm3 (3.65-5.03); Red Cell Distribution Width 19.6 % (13.2-15.2)
[2020-07-05 12:30] LABS: Anisocytosis 1+; Band Neutrophils # (Manual) 0.4 K/mm3; Burr Cells 1+; Eosinophils % (Manual) 2.5 % (0.0-4.3); Monocytes % (Manual) 1.5 % (0.0-7.3); Poikilocytosis 1+; Total Cells Counted 200
[2020-07-05 12:31] LABS: Platelet Estimate Consistent w Auto; Schistocytes Rare
--- NOTE | 2020-07-05 14:12 | Progress Note ---
Assessment and Plan Cultures: Blood culture 07/02/2020 no growth today C. difficile PCR positive Urine culture with mixed flavio Assessment: 70-year-old male with history of paraplegia, dementia, chronic sacral decubitus ulcer, peripheral vascular disease, CHF, hypertension, vertebral sacral osteomyelitis admitted on 07/02/2020 [facility] WBC was found to be 43.2, afebrile today patient stools: #Severe sepsis: Leukocytosis better 49K-->57-->48-->42K, likely secondary to C. difficile colitis. #Colitis: CT shows chronic colitis. Patient with large liquid bowel movements in route to the hospital x 4. Suspect C. difficile colitis #Complicated UTI: CT shows left kidney stone nonobstructive. Completed 3 days of cefepime #FRED: Likely due to sepsis/dehydration. Not better. #Sacral decubitus: Not Infected, needs wound care evaluation. Apparently recently treated. Recommendations: -Hem consult pending -Continue oral vancomycin 500 mg p.o. 4 times daily D4 -Continue metronidazole 500 g IV every 8 hours D4 -Obtain wound care consult pending -Sacral offloading -Follow-up blood cultures -Monitor leukocytosis which is slightly improved -Check KUB Will follow. Nunu Barroso MD Infectious Diseases Comb Machine Operator [facility] M [phone] [id number] [phone] Subjective Date of service: 07/05/20 Principal diagnosis: Sepsis/UTI, FRED, AF with RVR Interval history: Feels better, awake, ED, nonverbal. Objective - Exam Narrative Exam: General appearance: Alert in NAD ED Eyes: anicteric sclerae, moist conjunctivae; no lid-lag; PERRLA HENT: Normocephalic, Atraumatic; normal external ears, nares open, oropharynx limited, partially edentulous Neck: supple, tracheal midline, no JVD Lungs: CTA, with normal respiratory effort and no intercostal retractions CV: RRR no murmur Abdomen: Soft, non-tender Extremities: no edema, no cyanosis Skin: Sacral area not examined Psych: no agitated Neuro: alert follows simple commands - Constitutional Vitals: Vital Signs Temp Pulse Resp BP Pulse Ox 97.8 F 70 20 154/78 97 07/05/20 04:36 07/05/20 04:36 07/05/20 10:00 07/05/20 04:36 07/05/20 04:36 Temperature -Last 24 Hours Temperature 97.8 F Temperature 97.9 F - Labs CBC & Chem 7: 07/05/20 11:05 07/05/20 05:59 Labs: Abnormal lab results 07/04/20 07/04/20 07/05/20 Range/Units 16:16 21:56 05:59 WBC (4.5-11.0) K/mm3 RBC (3.65-5.03) M/mm3 Hgb (11.8-15.2) gm/dl Hct (35.5-45.6) % RDW (13.2-15.2) % Plt Count (140-440) K/mm3 Seg Neuts % (Manual) (40.0-70.0) % Lymphocytes % (Manual) (13.4-35.0) % Seg Neutrophils # Man (1.8-7.7) K/mm3 Lymphocytes # (Manual) (1.2-5.4) K/mm3 Eosinophils # (Manual) (0.0-0.4) K/mm3 Potassium 3.2 L (3.6-5.0) mmol/L Chloride 116.0 H (98-107) mmol/L Carbon Dioxide 14 L (22-30) mmol/L BUN 60 H (9-20) mg/dL Creatinine 3.7 H (0.8-1.3) mg/dL Glucose 133 H (75-100) mg/dL POC Glucose 150 H 165 H (70-105) mg/dL Calcium 7.7 L (8.4-10.2) mg/dL 07/05/20 07/05/20 07/05/20 Range/Units 07:24 07:51 11:05 WBC 42.3 H* (4.5-11.0) K/mm3 RBC 3.13 L (3.65-5.03) M/mm3 Hgb 8.8 L (11.8-15.2) gm/dl Hct 27.1 L (35.5-45.6) % RDW 19.6 H (13.2-15.2) % Plt Count 544 H (140-440) K/mm3 Seg Neuts % (Manual) 94.5 H (40.0-70.0) % Lymphocytes % (Manual) 0.5 L (13.4-35.0) % Seg Neutrophils # Man 40.0 H (1.8-7.7) K/mm3 Lymphocytes # (Manual) 0.2 L (1.2-5.4) K/mm3 Eosinophils # (Manual) 1.1 H (0.0-0.4) K/mm3 Potassium (3.6-5.0) mmol/L Chloride (98-107) mmol/L Carbon Dioxide (22-30) mmol/L BUN (9-20) mg/dL Creatinine (0.8-1.3) mg/dL Glucose (75-100) mg/dL POC Glucose 111 H 116 H (70-105) mg/dL Calcium (8.4-10.2) mg/dL
[2020-07-05] MEDS: SODIUM BICARBONATE 150 MEQ in DEXTROSE 5% IN WATER 1,000 ML IV SCH (16:32)
[2020-07-05] MEDS: FAMOTIDINE 20 MG TAB PO SCH (21:47)
[2020-07-05] MEDS ORDERED: METOPROLOL TARTRATE 25 MG TAB PO SCH (22:00)
[2020-07-05] MEDS: METOPROLOL TARTRATE 25 MG TAB PO SCH (22:30)
[2020-07-06] MEDS: VANCOMYCIN 250 MG/10 ML ORAL LIQD PO SCH ×4 (01:56→20:10)
[2020-07-06] MEDS: metroNIDAZOLE/NS 500 MG/100 ML 500 MG/100 ML BAG IV SCH ×3 (05:48→22:04)
[2020-07-06] MEDS: HEPARIN 5,000 UNIT/1 ML VIAL SUB-Q SCH ×3 (05:48→22:05)
[2020-07-06] MEDS: SODIUM BICARBONATE 150 MEQ in DEXTROSE 5% IN WATER 1,000 ML IV SCH ×2 (06:30→23:26)
[2020-07-06 07:48] LABS: Hemoglobin 9.3 gm/dl (11.8-15.2); Mean Corpuscular HGB Conc 32 % (32-34); Mean Corpuscular Volume 85 fl (84-94); Platelet Count 550 K/mm3 (140-440); Red Blood Count 3.41 M/mm3 (3.65-5.03)
[2020-07-06 07:56] LABS: Calcium 7.3 mg/dL (8.4-10.2)
--- NOTE | 2020-07-06 08:02 | Progress Note ---
Assessment and Plan Assessment and plan: Sepsis. Acute kidney injury. Urinary tract infection. Colitis. Metabolic acidosis. Atrial fibrillation Elevated troponin. 07/02/2020. Continue IV fluid hydration. Etiology of acute kidney injury likely secondary to vasomotor nephropathy/prerenal injury. Continue aggressive IV fluid hydration. Follow-up renal ultrasound. Nephrology following. Follow-up stool studies for colitis. Await ID recommendations for IV antibiotics. Consult cardiology for elevated troponin. 07/03/2020. Blood cultures remain negative. Follow-up C. difficile and stool PCR. Continue vancomycin 250 mg p.o. 4 times daily and Flagyl 500 IV every 8 hours. Continue IV vancomycin and cefepime per ID recommendations. Wound care consult. 07/04/2020. Patient continues to have hypotension. Unfortunately unable to give rate control medications due to hypotension. Also, cardiology recommends no anticoagulation given the anemia. Continue midodrine and IV fluid hydration. Patient with significant leukocytosis but blood cultures were found to be negative. Continue antibiotics per ID recommendations for colitis and UTI. Check lactic acid. Continue bicarbonate for metabolic acidosis per nephrology recommendations. 07/05/2020. Hypotension appears to be improved this morning. No anticoagulation for AF at this time in the setting of anemia. Start rate control medications per cardiology. Continue oral vancomycin and IV Flagyl for the colitis. Blood and urine cultures are negative. Wound care consult for sacral decubitus. 07/06/2020. Patient with severe sepsis secondary to C. difficile colitis. Continue oral vancomycin and IV Flagyl. Leukocytosis is profound but improved. Patient completed IV antibiotics for complicated UTI. Continue to follow blood cultures. Wound care for sacral decubitus. Continue metoprolol for rate control of A. fib. No anticoagulation due to severe anemia and risk of bleeding. Etiology of acute kidney injury secondary to vasomotor nephropathy/prerenal injury in the setting of urinary tract infection and C. difficile colitis. Continue aggressive IV fluid hydration per nephrology. History Interval history: 70-year-old -[place] male with a history of dementia coming in from a snf facility presented to the emergency department secondary to worsening weakness. Was found to be hypotensive and requiring multiple IV fluid boluses both in transit as well as in the emergency department. Nephrology consulted secondary to labs indicating acute kidney injury. Urinalysis indicating a urinary tract infection. He also apparently had issues with 2 loose bowel movements in the emergency department. CT scan of the abdomen and pelvis was done without contrast indicating evidence of what seems to be chronic colitis. No new issues overnight. Hospitalist Physical - Constitutional Vitals: Temp Pulse Resp BP Pulse Ox 98.0 F 67 16 113/80 95 07/06/20 05:15 07/06/20 05:15 07/06/20 05:15 07/06/20 05:15 07/06/20 05:15 General appearance: Present: other (Altered mental status) - EENT Eyes: Present: PERRL, EOM intact ENT: hearing intact, clear oral mucosa, dentition normal - Neck Neck: Present: supple, normal ROM - Respiratory Respiratory effort: normal Respiratory: bilateral: CTA - Cardiovascular Rhythm: regular Heart Sounds: Present: S1 & S2. Absent: gallop, rub - Extremities Extremities: no ischemia, No edema, Full ROM - Abdominal General gastrointestinal: soft, non-tender, non-distended, normal bowel sounds - Integumentary Integumentary: Present: clear, warm, dry - Neurologic Neurologic: CNII-XII intact, moves all extremities HEART Score - HEART Score Troponin: Troponin T 0.074 ng/mL (0.00-0.029) H 07/04/20 04:58 Results - Labs CBC & Chem 7: 07/06/20 07:05 07/06/20 07:05 Labs: Laboratory Last Values WBC 31.3 K/mm3 (4.5-11.0) H 07/06/20 07:05 RBC 3.41 M/mm3 (3.65-5.03) L 07/06/20 07:05 Hgb 9.3 gm/dl (11.8-15.2) L 07/06/20 07:05 Hct 29.0 % (35.5-45.6) L 07/06/20 07:05 MCV 85 fl (84-94) 07/06/20 07:05 MCH 27 pg (28-32) L 07/06/20 07:05 MCHC 32 % (32-34) 07/06/20 07:05 RDW 20.0 % (13.2-15.2) H 07/06/20 07:05 Plt Count 550 K/mm3 (140-440) H 07/06/20 07:05 Add Manual Diff Complete 07/05/20 11:05 Total Counted 200 07/05/20 11:05 Seg Neutrophils % Verification Clerk 07/04/20 04:58 Seg Neuts % (Manual) 94.5 % (40.0-70.0) H 07/05/20 11:05 Band Neutrophils % 1.0 % 07/05/20 11:05 Lymphocytes % (Manual) 0.5 % (13.4-35.0) L 07/05/20 11:05 Monocytes % (Manual) 1.5 % (0.0-7.3) 07/05/20 11:05 Eosinophils % (Manual) 2.5 % (0.0-4.3) 07/05/20 11:05 Metamyelocytes % 1.0 % 07/04/20 04:58 Myelocytes % 1.0 % 07/03/20 05:03 Nucleated RBC % Not Reportable 07/05/20 11:05 Seg Neutrophils # Man 40.0 K/mm3 (1.8-7.7) H 07/05/20 11:05 Band Neutrophils # 0.4 K/mm3 07/05/20 11:05 Lymphocytes # (Manual) 0.2 K/mm3 (1.2-5.4) L 07/05/20 11:05 Abs React Lymphs (Man) 0.0 K/mm3 07/05/20 11:05 Monocytes # (Manual) 0.6 K/mm3 (0.0-0.8) 07/05/20 11:05 Eosinophils # (Manual) 1.1 K/mm3 (0.0-0.4) H 07/05/20 11:05 Basophils # (Manual) 0.0 K/mm3 (0.0-0.1) 07/05/20 11:05 Metamyelocytes # 0.0 K/mm3 07/05/20 11:05 Myelocytes # 0.0 K/mm3 07/05/20 11:05 Promyelocytes # 0.0 K/mm3 07/05/20 11:05 Blast Cells # 0.0 K/mm3 07/05/20 11:05 Pathologist Review 07/01/20 21:00 WBC Morphology Not Reportable 07/05/20 11:05 Hypersegmented Neuts Not Reportable 07/05/20 11:05 Hyposegmented Neuts Not Reportable 07/05/20 11:05 Hypogranular Neuts Not Reportable 07/05/20 11:05 Smudge Cells Not Reportable 07/05/20 11:05 Toxic Granulation Not Reportable 07/05/20 11:05 Toxic Vacuolation Not Reportable 07/05/20 11:05 Dohle Bodies Not Reportable 07/05/20 11:05 Pelger-Huet Anomaly Not Reportable 07/05/20 11:05 Jeanna Rods Not Reportable 07/05/20 11:05 Platelet Estimate Consistent w auto 07/05/20 11:05 Clumped Platelets Not Reportable 07/05/20 11:05 Plt Clumps, EDTA Not Reportable 07/05/20 11:05 Large Platelets Not Reportable 07/05/20 11:05 Giant Platelets Not Reportable 07/05/20 11:05 Platelet Satelliting Not Reportable 07/05/20 11:05 Plt Morphology Comment Not Reportable 07/05/20 11:05 RBC Morphology Not Reportable 07/05/20 11:05 Dimorphic RBCs Not Reportable 07/05/20 11:05 Polychromasia Not Reportable 07/05/20 11:05 Hypochromasia Not Reportable 07/05/20 11:05 Poikilocytosis 1+ 07/05/20 11:05 Anisocytosis 1+ 07/05/20 11:05 Microcytosis Not Reportable 07/05/20 11:05 Macrocytosis Not Reportable 07/05/20 11:05 Spherocytes Not Reportable 07/05/20 11:05 Pappenheimer Bodies Not Reportable 07/05/20 11:05 Sickle Cells Not Reportable 07/05/20 11:05 Target Cells Not Reportable 07/05/20 11:05 Tear Drop Cells Not Reportable 07/05/20 11:05 Ovalocytes Not Reportable 07/05/20 11:05 Helmet Cells Not Reportable 07/05/20 11:05 Kauffman-Peters Bodies Not Reportable 07/05/20 11:05 Trego Rings Not Reportable 07/05/20 11:05 Jennifer Cells 1+ 07/05/20 11:05 Bite Cells Not Reportable 07/05/20 11:05 Crenated Cell Not Reportable 07/05/20 11:05 Elliptocytes Not Reportable 07/05/20 11:05 Acanthocytes (Spur) Not Reportable 07/05/20 11:05 Rouleaux Not Reportable 07/05/20 11:05 Hemoglobin C Crystals Not Reportable 07/05/20 11:05 Schistocytes Rare 07/05/20 11:05 Malaria parasites Not Reportable 07/05/20 11:05 Raheem Bodies Not Reportable 07/05/20 11:05 Hem Pathologist Commnt No 07/05/20 11:05 PT 17.5 Sec. (12.2-14.9) H 07/03/20 05:03 INR 1.45 (0.87-1.13) H 07/03/20 05:03 Sodium 143 mmol/L (137-145) 07/06/20 07:05 Potassium 3.2 mmol/L (3.6-5.0) L 07/06/20 07:05 Chloride 115.2 mmol/L (98-107) H 07/06/20 07:05 Carbon Dioxide 15 mmol/L (22-30) L 07/06/20 07:05 Anion Gap 16 mmol/L 07/06/20 07:05 BUN 58 mg/dL (9-20) H 07/06/20 07:05 Creatinine 3.2 mg/dL (0.8-1.3) H 07/06/20 07:05 Estimated GFR 23 ml/min 07/06/20 07:05 BUN/Creatinine Ratio 18 % 07/06/20 07:05 Glucose 137 mg/dL (75-100) H 07/06/20 07:05 POC Glucose 184 mg/dL (70-105) H 07/05/20 21:40 Lactic Acid 1.60 mmol/L (0.7-2.0) 07/01/20 23:35 Calcium 7.3 mg/dL (8.4-10.2) L 07/06/20 07:05 Phosphorus 5.90 mg/dL (2.5-4.5) H 07/02/20 13:44 Magnesium 1.80 mg/dL (1.7-2.3) 07/05/20 05:59 Total Bilirubin 0.20 mg/dL (0.1-1.2) 07/01/20 21:00 AST 27 units/L (5-40) 07/01/20 21:00 ALT 18 units/L (7-56) 07/01/20 21:00 Alkaline Phosphatase 128 units/L (35-129) 07/01/20 21:00 Troponin T 0.074 ng/mL (0.00-0.029) H 07/04/20 04:58 Total Protein 5.6 g/dL (6.3-8.2) L 07/01/20 21:00 Albumin 1.8 g/dL (3.9-5) L 07/01/20 21:00 Albumin/Globulin Ratio 0.5 % 07/01/20 21:00 Triglycerides 38 mg/dL (2-149) 07/01/20 21:00 Cholesterol 62 mg/dL (50-199) 07/01/20 21:00 LDL Cholesterol Direct 19 mg/dL (50-130) L 07/01/20 21:00 HDL Cholesterol 37 mg/dL (40-59) L 07/01/20 21:00 Cholesterol/HDL Ratio 1.67 % 07/01/20 21:00 Procalcitonin 24.35 ng/mL (<0.15) 07/02/20 13:44 Urine Color Yellow (Yellow) 07/01/20 23:17 Urine Turbidity Turbid (Clear) 07/01/20 23:17 Urine pH 6.0 (5.0-7.0) 07/01/20 23:17 Ur Specific [place] 1.012 (1.003-1.030) 07/01/20 23:17 Urine Protein 100 mg/dl mg/dL (Negative) 07/01/20 23:17 Urine Glucose (UA) Neg mg/dL (Negative) 07/01/20 23:17 Urine Ketones Neg mg/dL (Negative) 07/01/20 23:17 Urine Blood Sm (Negative) 07/01/20 23:17 Urine Nitrite Pos (Negative) 07/01/20 23:17 Urine Bilirubin Neg (Negative) 07/01/20 23:17 Urine Urobilinogen < 2.0 mg/dL (<2.0) 07/01/20 23:17 Ur Leukocyte Esterase Lg (Negative) 07/01/20 23:17 Urine WBC (Auto) > 182.0 /HPF (0.0-6.0) H 07/01/20 23:17 Urine RBC (Auto) 42.0 /HPF (0.0-6.0) 07/01/20 23:17 U Epithel Cells (Auto) 6.0 /HPF (0-13.0) 07/01/20 23:17 Urine Bacteria (Auto) 2+ /HPF (Negative) 07/01/20 23:17 Urine WBC Clumps 3+ /HPF 07/01/20 23:17 Urine Mucus 2+ /HPF 07/01/20 23:17 Urine Yeast (Budding) 3+ /HPF 07/01/20 23:17 Urine Creatinine 85.5 mg/dL (0.1-20.0) H 07/02/20 13:27 Urine Sodium 37 mmol/L 07/02/20 13:27 Random Vancomycin 10.4 ug/mL (0-40.0) 07/03/20 05:03 C. difficile Tox (PCR) Positive (Negative) 07/02/20 12:30 Coronavirus (PCR) Negative (Negative) 07/05/20 Unknown Microbiology: Microbiology 07/01/20 21:00 Peripheral/Venous Blood Culture - Preliminary NO GROWTH AFTER 4 DAYS 07/01/20 21:09 Peripheral/Venous Blood Culture - Preliminary NO GROWTH AFTER 4 DAYS Das/IV: Voiding Method Indwelling Catheter Active Medications - Current Medications Current Medications: Generic Name Dose Route Start Last Admin Trade Name Freq PRN Reason Stop Dose Admin Atorvastatin Calcium 10 mg 07/04/20 22:00 07/05/20 21:47 Atorvastatin 10 Mg Tab PO 10 mg QHS HARLEY Administration Famotidine 20 mg 07/02/20 22:00 07/05/20 21:47 Famotidine 20 Mg Tab PO 20 mg QHS HARLEY Administration Heparin Sodium (Porcine) 5,000 unit 07/02/20 06:00 07/06/20 05:48 Heparin 5,000 Unit/1 Ml Vial SUB-Q 5,000 unit Q8HR HARLEY Administration Sodium Bicarbonate 150 meq/ 1,150 mls @ 100 mls/hr 07/03/20 11:00 07/06/20 06:30 Dextrose IV 75 mls/hr DIRECT HARLEY Administration Metronidazole 500 mg in 100 mls @ 100 mls/hr 07/04/20 22:00 07/06/20 05:48 Flagyl 500 Mg/100 Ml IV 100 mls/hr Q8HR HARLEY Administration Protocol Magnesium Hydroxide 30 ml 07/02/20 01:22 Magnesium Hydroxide (Mom) Oral Liqd Udc PO Q4H PRN Constipation Metoprolol Tartrate 6.25 mg 07/05/20 22:00 07/05/20 22:30 Metoprolol Tartrate 25 Mg Tab PO 6.25 mg BID HARLEY Administration Morphine Sulfate 2 mg 07/02/20 01:22 Morphine 2 Mg/1 Ml Inj IV Q4H PRN Pain, Moderate (4-6) Ondansetron HCl 4 mg 07/02/20 01:22 Ondansetron 4 Mg/2 Ml Inj IV Q8H PRN Nausea And Vomiting Potassium Chloride 40 meq 07/05/20 10:00 07/05/20 10:05 Potassium Chloride Er 20 Meq Tab PO 40 meq QDAY HARLEY Administration Sodium Chloride 10 ml 07/02/20 10:00 07/05/20 21:48 Sodium Chloride 0.9% 10 Ml Flush Syringe IV 10 ml BID HARLEY Administration Sodium Chloride 10 ml 07/02/20 01:22 Sodium Chloride 0.9% 10 Ml Flush Syringe IV PRN PRN LINE FLUSH Vancomycin HCl 500 mg 07/04/20 14:00 07/06/20 01:56 Vancomycin 250 Mg/10 Ml Oral Liqd PO 500 mg Q6H HARLEY Administration Protocol Nutrition/Malnutrition Assess - Dietary Evaluation Nutrition/Malnutrition Findings: Nutrition Notes Start: 07/02/20 14:33 Freq: Status: Active Protocol: Document 07/02/20 14:33 AL (Rec: 07/02/20 14:47 AL [id number]) Co-Sign 07/02/20 14:33 LP Nutrition Notes Need for Assessment generated from: MD Order,Education Initial or Follow up Assessment Current Diagnosis Acute Kidney Injury,Heart Failure Other Pertinent Diagnosis C diff Current Diet Cardiac Diet Labs/Tests Na 135 BUN 51 Cr 3.1 Pertinent Medications NS at 150 ml/hr Height 5 ft 7 in Weight 60.8 kg [place] Body Weight (kg) 67.27 BMI 20.9 Weight Status Appropriate Subjective/Other Information MD consult for diet education. Pt reports losing weight, but unaware of how much weight lost. Pt reports having good appetite, but just can't eat. Per RN, pt is eating 25% of meals and suggests Nepro. At rounds, Dr ordered pt to recieve swallow eval. 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 No Is Patient Ambulatory and/or Out of Bed No REE-([place] [facility]-confined to bed) 1603.848 Calculation Used for Recommendations [place] Additional Notes Protein: 73-90 g (1.2-1.5 g/kg ) Fluid: 1055-2417 mL or per MD order. Nutrition Intervention Change Diet Order: Continue current diet unless CORK SLABS SAWYER recommends something else. Add Supplement/Snack (indicate name/kcal Nepro BID /protein ) Provides kCal: 950 Provides Protein (gm) 40 Teaching Recipient Patient Learning Readiness Fair Teaching Methods Discussion,Handout Response to Teaching Verbalize understanding Education Handouts Provided General Healthful Nutrition Tips. Barriers to Learning Auditory RD phone number provided Yes Patient aware of follow up options Yes Goal #1 Meet at least 75% of estimated energy and protein needs. Goal #2 ONS tolerance. Anticipated Discharge Needs: Unable to determine at this time. Follow-Up By: 07/11/20 Additional Comments FU for CORK SLABS SAWYER recommendations, intakes, and ONS tolerance.
[2020-07-06 08:33] LABS: Anisocytosis 1+; Band Neutrophils # (Manual) 0.3 K/mm3; Burr Cells 1+; Monocytes % (Manual) 0.5 % (0.0-7.3); Platelet Estimate Consistent w Auto; Poikilocytosis 1+; Schistocytes Rare; Total Cells Counted 200
[2020-07-06 08:34] LABS: Large Platelets Few
[2020-07-06] MEDS: POTASSIUM CHLORIDE ER 20 MEQ TAB PO SCH (09:02)
[2020-07-06] MEDS: METOPROLOL TARTRATE 25 MG TAB PO SCH ×2 (09:07→22:35)
--- NOTE | 2020-07-06 13:13 | Progress Note ---
Assessment and Plan - Patient Problems (1) FRED (acute kidney injury) Current Visit: Yes Status: Acute Plan to address problem: Likely in the setting of prerenal injury in the setting of urinary tract infection and possible exacerbation of colitis with previous history of C. difficile colitis per nursing staff. Agree with current regimen with aggressive IV fluid hydration and hemodynamic management. Antibiotics to target urinary tract infection. Will obtain a renal ultrasound along with urine electrolytes for further evaluation. Please avoid all nephrotoxins at this time given his acute kidney injury. We will be monitoring carefully. We will need to make sure that his mean arterial pressures remain above 65 mmHg which to have been at this time. He has not required pressors at this time. Would maintain patient on current IVF hydration. (2) Metabolic acidosis Current Visit: Yes Status: Acute Plan to address problem: In the setting of acute kidney injury with questionable history of diarrheal symptoms and apparently finding of colitis that is chronic in nature on his most recent CT scan. We are maintaining patient on IV fluid hydration with D5W+150 meq NaHCO3 which we will increase to 100 cc/hr. (3) C. difficile colitis Current Visit: Yes Status: Acute Plan to address problem: C. difficile PCR is positive at this time. ID recommendations appreciated. (4) Complicated urinary tract infection Current Visit: Yes Status: Acute Plan to address problem: Please ensure that antibiotics are dosed appropriately for his decreased renal function. Subjective Date of service: 07/06/20 Principal diagnosis: Sepsis/UTI, FRED, AF with RVR Interval history: No acute changes overnight. Renal function is stable. Objective - Vital Signs Vital signs: Vital Signs - 12hr 07/06/20 07/06/20 07/06/20 05:15 09:07 11:02 Temperature 98.0 F 97.6 F Pulse Rate 67 62 62 Respiratory 16 20 Rate Blood Pressure 113/80 99/64 O2 Sat by Pulse 95 99 Oximetry - General Appearance General appearance: appears stated age, chronically ill EENT: ATNC Neck: no JVD Respiratory: Present: Clear to Ascultation Cardiology: regular Gastrointestinal: normal Musculoskeletal: deferred - Lab 07/06/20 07:05 07/06/20 07:05 Most recent lab results Calcium 7.3 mg/dL (8.4-10.2) L 07/06/20 07:05 Phosphorus 5.90 mg/dL (2.5-4.5) H 07/02/20 13:44 Magnesium 1.80 mg/dL (1.7-2.3) 07/05/20 05:59 Urine Creatinine 85.5 mg/dL (0.1-20.0) H 07/02/20 13:27 Urine Sodium 37 mmol/L 07/02/20 13:27 - Allied health notes Allied health notes reviewed: nursing Medications & Allergies - Medications Allergies/Adverse Reactions: Allergies No Known Allergies Allergy (Verified 07/01/20 23:23) Home Medications: Home Medications Medication Instructions Recorded Confirmed Last Taken Type Acetaminophen [Aphen] 325 mg PO PRN PRN 07/02/20 07/02/20 Unknown History Amlodipine Besylate [Norvasc] 10 mg PO DAILY 07/02/20 07/02/20 Unknown History Ascorbic Acid/Ascorbate Sodium 500 mg PO DAILY 07/02/20 07/02/20 Unknown History [Vit C-Alyce Hips 500 mg Chew Tb] Aspirin [Adult Aspirin] 81 mg PO DAILY 07/02/20 07/02/20 Unknown History AtorvaSTATin [Lipitor] 10 mg PO QHS 07/02/20 07/02/20 Unknown History Ciprofloxacin HCl 500 mg PO Q8HR 07/02/20 07/02/20 Unknown History Diclofenac 1% [Diclofenac 1% 1 applic TP Q6HR 07/02/20 07/02/20 Unknown History topical gel] Epoetin Baljeet [Procrit] 3,000 unit SQ QWEEK 07/02/20 07/02/20 Unknown History Heparin Sodium,Porcine [Heparin 5,000 unit SUB-Q Q8HR 07/02/20 07/02/20 Unknown History Sodium] Ipratropium/Albuterol Sulfate 1 ampul IH Q6HR 07/02/20 07/02/20 Unknown History [DUONEB *Not for PRN Use*] Lispro Insulin [HumaLOG] 0 unit SQ ACHS 07/02/20 07/02/20 Unknown History Multivit-Minerals/Folic Acid 1 tab PO DAILY 07/02/20 07/02/20 Unknown History [Adult One Daily Multivit Tab] PANTOPRAZOLE SODIUM (nf) [Protonix 40 mg PO QAM 07/02/20 07/02/20 Unknown History GRANULES] Zinc Sulfate 220 mg PO DAILY 07/02/20 07/02/20 Unknown History allopurinoL [Zyloprim] 100 mg PO QDAY 07/02/20 07/02/20 Unknown History hydrALAZINE [Apresoline TAB] 100 mg PO TID 07/02/20 07/02/20 Unknown History Active Medications: Generic Name Dose Route Start Last Admin Trade Name Freq PRN Reason Stop Dose Admin Atorvastatin Calcium 10 mg 07/04/20 22:00 07/05/20 21:47 Atorvastatin 10 Mg Tab PO 10 mg QHS HARLEY Administration Famotidine 20 mg 07/02/20 22:00 07/05/20 21:47 Famotidine 20 Mg Tab PO 20 mg QHS HARLEY Administration Heparin Sodium (Porcine) 5,000 unit 07/02/20 06:00 07/06/20 05:48 Heparin 5,000 Unit/1 Ml Vial SUB-Q 5,000 unit Q8HR HARLEY Administration Sodium Bicarbonate 150 meq/ 1,150 mls @ 100 mls/hr 07/03/20 11:00 07/06/20 06:30 Dextrose IV 75 mls/hr DIRECT HARLEY Administration Metronidazole 500 mg in 100 mls @ 100 mls/hr 07/04/20 22:00 07/06/20 05:48 Flagyl 500 Mg/100 Ml IV 100 mls/hr Q8HR HARLEY Administration Protocol Insulin Human Lispro 0 unit 07/06/20 16:30 Insulin Lispro 100 Unit/Ml SUB-Q ACHS HARLEY Protocol Magnesium Hydroxide 30 ml 07/02/20 01:22 Magnesium Hydroxide (Mom) Oral Liqd Udc PO Q4H PRN Constipation Metoprolol Tartrate 6.25 mg 07/05/20 22:00 07/06/20 09:07 Metoprolol Tartrate 25 Mg Tab PO Not Given BID HARLEY Morphine Sulfate 2 mg 07/02/20 01:22 Morphine 2 Mg/1 Ml Inj IV Q4H PRN Pain, Moderate (4-6) Ondansetron HCl 4 mg 07/02/20 01:22 Ondansetron 4 Mg/2 Ml Inj IV Q8H PRN Nausea And Vomiting Potassium Chloride 40 meq 07/05/20 10:00 07/06/20 09:02 Potassium Chloride Er 20 Meq Tab PO 40 meq QDAY HARLEY Administration Sodium Chloride 10 ml 07/02/20 10:00 07/06/20 09:07 Sodium Chloride 0.9% 10 Ml Flush Syringe IV 10 ml BID HARLEY Administration Sodium Chloride 10 ml 07/02/20 01:22 Sodium Chloride 0.9% 10 Ml Flush Syringe IV PRN PRN LINE FLUSH Vancomycin HCl 500 mg 07/04/20 14:00 07/06/20 09:02 Vancomycin 250 Mg/10 Ml Oral Liqd PO 500 mg Q6H HARLEY Administration Protocol
--- NOTE | 2020-07-06 13:31 | Progress Note ---
Assessment and Plan Septic shock, presumably Urinary tract infection Sacral decubitus ulcer present on arrival Acute kidney injury Possible Clostridium difficile colitis Leukocytosis Non-ST elevation myocardial infarction Sacral osteomyelitis Severe protein calorie malnutrition Anemia that is normocytic Metabolic acidosis - prn supplemental oxygen to keep O2 sats > 90% - prn bronchodilators (ERIK) with pulm hygiene per RT - continue antiinfective's per ID recommendations - continue to avoid nephrotoxins, renally dose all medications - continue mobility protocols to prevent pressure ulcers - PT/OT as tolerated - Wound care per RN/WCT - continue accuchecks with glycemic control per SSI for target blood glucose < 180 mg/dL - prn analgesia per pain score - home oxygen evaluation at discharge - GI & VTE prophylaxis - Flu & pneumovax per protocol - Pulmonary out patient follow up for PFTs and optimization of respiratory status - continue other care per attending / other consultants ... re-evaluate in am & prn Subjective Date of service: 07/05/20 Principal diagnosis: Septic shock; UTI; Sacral decubitus; FRED; C-diff colitis; NSTEMI Interval history: Patient is seen today for: Septic shock; UTI; Sacral decubitus; FRED; Possible Clostridium difficile colitis; NSTEMI; Metabolic acidosis Seen and examined at bedside; 24hour events reviewed; nursing and respiratory care staff consulted; no adverse overnight events reported to me; resting in bed; no acute distress; C-diff assay positive; no emesis or overt aspiration Objective Vital Signs - 12hr 07/05/20 07/05/20 04:36 10:00 Temperature 97.8 F Pulse Rate 70 Respiratory 20 20 Rate Blood Pressure 154/78 O2 Sat by Pulse 97 Oximetry Constitutional: no acute distress, alert, other (elderly and chronically ill looking male) Eyes: non-icteric ENT: oropharynx moist Neck: supple, no JVD Effort: normal Ascultation: Bilateral: diminished breath sounds Percussion: Bilateral: not dull Cardiovascular: regular rate and rhythm Gastrointestinal: normoactive bowel sounds, soft, non-tender, non-distended Integumentary: normal Extremities: no cyanosis Neurologic: pupils equal and round, CN II-XII normal, other (paraplegic) Psychiatric: mood appropriate, affect normal CBC and BMP: 07/06/20 07:05 07/06/20 07:05 ABG, PT/INR, D-dimer: PT/INR, D-dimer PT 17.5 Sec. (12.2-14.9) H 07/03/20 05:03 INR 1.45 (0.87-1.13) H 07/03/20 05:03 Abnormal lab findings: Abnormal Labs 07/01/20 07/01/20 07/01/20 21:00 21:00 23:17 WBC 47.5 H* RBC 3.05 L Hgb 8.5 L Hct 28.3 L MCH MCHC 30 L RDW 19.7 H Plt Count Seg Neuts % (Manual) 90.0 H Lymphocytes % (Manual) 6.0 L Seg Neutrophils # Man 42.8 H Lymphocytes # (Manual) Monocytes # (Manual) 1.9 H Eosinophils # (Manual) PT INR Sodium 135 L Potassium Chloride 109.5 H Carbon Dioxide 10 L BUN 51 H Creatinine 3.1 H Glucose 114 H POC Glucose Calcium 7.3 L Phosphorus Magnesium Troponin T 0.149 H* Total Protein 5.6 L Albumin 1.8 L LDL Cholesterol Direct 19 L HDL Cholesterol 37 L Urine WBC (Auto) > 182.0 H Urine Creatinine 07/02/20 07/02/20 07/03/20 13:27 13:44 05:03 WBC 59.5 H* RBC 3.03 L Hgb 8.3 L Hct 26.5 L MCH 27 L MCHC 31 L RDW 19.6 H Plt Count 538 H Seg Neuts % (Manual) 89.0 H Lymphocytes % (Manual) 2.0 L Seg Neutrophils # Man 53.0 H Lymphocytes # (Manual) Monocytes # (Manual) Eosinophils # (Manual) PT INR Sodium Potassium Chloride Carbon Dioxide BUN Creatinine Glucose POC Glucose Calcium Phosphorus 5.90 H Magnesium 1.50 L Troponin T Total Protein Albumin LDL Cholesterol Direct HDL Cholesterol Urine WBC (Auto) Urine Creatinine 85.5 H 07/03/20 07/03/20 07/04/20 05:03 05:03 04:58 WBC 48.7 H* RBC 3.05 L Hgb 8.6 L Hct 27.1 L MCH MCHC RDW 19.5 H Plt Count Seg Neuts % (Manual) 92.5 H Lymphocytes % (Manual) 2.0 L Seg Neutrophils # Man 45.0 H Lymphocytes # (Manual) 1.0 L Monocytes # (Manual) Eosinophils # (Manual) PT 17.5 H INR 1.45 H Sodium Potassium 3.3 L Chloride 115.5 H Carbon Dioxide 9 L* BUN 52 H Creatinine 3.2 H Glucose 120 H POC Glucose Calcium 7.2 L Phosphorus Magnesium Troponin T 0.089 H D Total Protein Albumin LDL Cholesterol Direct HDL Cholesterol Urine WBC (Auto) Urine Creatinine 07/04/20 07/04/20 07/04/20 04:58 11:38 16:16 WBC RBC Hgb Hct MCH MCHC RDW Plt Count Seg Neuts % (Manual) Lymphocytes % (Manual) Seg Neutrophils # Man Lymphocytes # (Manual) Monocytes # (Manual) Eosinophils # (Manual) PT INR Sodium Potassium Chloride 117.2 H Carbon Dioxide 9 L* BUN 57 H Creatinine 3.5 H Glucose 138 H POC Glucose 159 H 150 H Calcium 7.8 L Phosphorus Magnesium Troponin T 0.074 H Total Protein Albumin LDL Cholesterol Direct HDL Cholesterol Urine WBC (Auto) Urine Creatinine 07/04/20 07/05/20 07/05/20 21:56 05:59 07:24 WBC RBC Hgb Hct MCH MCHC RDW Plt Count Seg Neuts % (Manual) Lymphocytes % (Manual) Seg Neutrophils # Man Lymphocytes # (Manual) Monocytes # (Manual) Eosinophils # (Manual) PT INR Sodium Potassium 3.2 L Chloride 116.0 H Carbon Dioxide 14 L BUN 60 H Creatinine 3.7 H Glucose 133 H POC Glucose 165 H 111 H Calcium 7.7 L Phosphorus Magnesium Troponin T Total Protein Albumin LDL Cholesterol Direct HDL Cholesterol Urine WBC (Auto) Urine Creatinine 07/05/20 07/05/20 07:51 11:05 WBC 42.3 H* RBC 3.13 L Hgb 8.8 L Hct 27.1 L MCH MCHC RDW 19.6 H Plt Count 544 H Seg Neuts % (Manual) 94.5 H Lymphocytes % (Manual) 0.5 L Seg Neutrophils # Man 40.0 H Lymphocytes # (Manual) 0.2 L Monocytes # (Manual) Eosinophils # (Manual) 1.1 H PT INR Sodium Potassium Chloride Carbon Dioxide BUN Creatinine Glucose POC Glucose 116 H Calcium Phosphorus Magnesium Troponin T Total Protein Albumin LDL Cholesterol Direct HDL Cholesterol Urine WBC (Auto) Urine Creatinine Allied health notes reviewed: nursing
[2020-07-06] MEDS: INSULIN LISPRO 100 UNIT/ML SUB-Q SCH ×2 (16:38→22:36)
[2020-07-06] MEDS: FAMOTIDINE 20 MG TAB PO SCH (22:05)
[2020-07-07] MEDS: VANCOMYCIN 250 MG/10 ML ORAL LIQD PO SCH ×4 (02:00→22:05)
[2020-07-07] MEDS: metroNIDAZOLE/NS 500 MG/100 ML 500 MG/100 ML BAG IV SCH ×3 (05:28→22:06)
[2020-07-07] MEDS: HEPARIN 5,000 UNIT/1 ML VIAL SUB-Q SCH ×3 (05:29→22:06)
[2020-07-07] MEDS: INSULIN LISPRO 100 UNIT/ML SUB-Q SCH ×4 (07:30→22:25)
--- NOTE | 2020-07-07 08:01 | Progress Note ---
Assessment and Plan Assessment and plan: Sepsis. Acute kidney injury. Urinary tract infection. Colitis. Metabolic acidosis. Atrial fibrillation Elevated troponin. 07/02/2020. Continue IV fluid hydration. Etiology of acute kidney injury likely secondary to vasomotor nephropathy/prerenal injury. Continue aggressive IV fluid hydration. Follow-up renal ultrasound. Nephrology following. Follow-up stool studies for colitis. Await ID recommendations for IV antibiotics. Consult cardiology for elevated troponin. 07/03/2020. Blood cultures remain negative. Follow-up C. difficile and stool PCR. Continue vancomycin 250 mg p.o. 4 times daily and Flagyl 500 IV every 8 hours. Continue IV vancomycin and cefepime per ID recommendations. Wound care consult. 07/04/2020. Patient continues to have hypotension. Unfortunately unable to give rate control medications due to hypotension. Also, cardiology recommends no anticoagulation given the anemia. Continue midodrine and IV fluid hydration. Patient with significant leukocytosis but blood cultures were found to be negative. Continue antibiotics per ID recommendations for colitis and UTI. Check lactic acid. Continue bicarbonate for metabolic acidosis per nephrology recommendations. 07/05/2020. Hypotension appears to be improved this morning. No anticoagulation for AF at this time in the setting of anemia. Start rate control medications per cardiology. Continue oral vancomycin and IV Flagyl for the colitis. Blood and urine cultures are negative. Wound care consult for sacral decubitus. 07/06/2020. Patient with severe sepsis secondary to C. difficile colitis. Continue oral vancomycin and IV Flagyl. Leukocytosis is profound but improved. Patient completed IV antibiotics for complicated UTI. Continue to follow blood cultures. Wound care for sacral decubitus. Continue metoprolol for rate control of A. fib. No anticoagulation due to severe anemia and risk of bleeding. Etiology of acute kidney injury secondary to vasomotor nephropathy/prerenal injury in the setting of urinary tract infection and C. difficile colitis. Continue aggressive IV fluid hydration per nephrology. 07/07/2020. Follow-up CBC for profound leukocytosis. Blood cultures with no growth x5 days. Patient with severe sepsis secondary to C. difficile colitis. Continue oral vancomycin and IV Flagyl. Wound care for sacral decubitus. Continue metoprolol for rate control of A. fib. No anticoagulation due to severe anemia and risk of bleeding. Continue aggressive IV fluid hydration and follow-up BMP. Nephrology, cardiology and ID following. History Interval history: 70-year-old -[place] male with a history of dementia coming in from a [facility] facility presented to the emergency department secondary to worsening weakness. Was found to be hypotensive and requiring multiple IV fluid boluses both in transit as well as in the emergency department. Nephrology consulted secondary to labs indicating acute kidney injury. Urinalysis indicating a urinary tract infection. He also apparently had issues with 2 loose bowel movements in the emergency department. CT scan of the abdomen and pelvis was done without contrast indicating evidence of what seems to be chronic colitis. No new issues overnight. Hospitalist Physical - Constitutional Vitals: Temp Pulse Resp BP Pulse Ox 98.3 F 99 H 18 105/54 100 07/06/20 22:23 07/06/20 22:35 07/06/20 22:23 07/06/20 22:35 07/06/20 22:23 General appearance: Present: other (Altered mental status) - EENT Eyes: Present: PERRL, EOM intact ENT: hearing intact, clear oral mucosa, dentition normal - Neck Neck: Present: supple, normal ROM - Respiratory Respiratory effort: normal Respiratory: bilateral: CTA - Cardiovascular Rhythm: regular Heart Sounds: Present: S1 & S2. Absent: gallop, rub - Extremities Extremities: no ischemia, No edema, Full ROM - Abdominal General gastrointestinal: soft, non-tender, non-distended, normal bowel sounds - Integumentary Integumentary: Present: clear, warm, dry - Neurologic Neurologic: CNII-XII intact, moves all extremities HEART Score - HEART Score Troponin: Troponin T 0.115 ng/mL (0.00-0.029) H* D 07/06/20 07:05 Results - Labs CBC & Chem 7: 07/06/20 07:05 07/06/20 07:05 Labs: Laboratory Last Values WBC 31.3 K/mm3 (4.5-11.0) H 07/06/20 07:05 RBC 3.41 M/mm3 (3.65-5.03) L 07/06/20 07:05 Hgb 9.3 gm/dl (11.8-15.2) L 07/06/20 07:05 Hct 29.0 % (35.5-45.6) L 07/06/20 07:05 MCV 85 fl (84-94) 07/06/20 07:05 MCH 27 pg (28-32) L 07/06/20 07:05 MCHC 32 % (32-34) 07/06/20 07:05 RDW 20.0 % (13.2-15.2) H 07/06/20 07:05 Plt Count 550 K/mm3 (140-440) H 07/06/20 07:05 Add Manual Diff Complete 07/06/20 07:05 Total Counted 200 07/06/20 07:05 Seg Neutrophils % Resident Care Director 07/04/20 04:58 Seg Neuts % (Manual) 93.5 % (40.0-70.0) H 07/06/20 07:05 Band Neutrophils % 1.0 % 07/06/20 07:05 Lymphocytes % (Manual) 4.0 % (13.4-35.0) L 07/06/20 07:05 Monocytes % (Manual) 0.5 % (0.0-7.3) 07/06/20 07:05 Eosinophils % (Manual) 1.0 % (0.0-4.3) 07/06/20 07:05 Metamyelocytes % 1.0 % 07/04/20 04:58 Myelocytes % 1.0 % 07/03/20 05:03 Nucleated RBC % Not Reportable 07/06/20 07:05 Seg Neutrophils # Man 29.3 K/mm3 (1.8-7.7) H 07/06/20 07:05 Band Neutrophils # 0.3 K/mm3 07/06/20 07:05 Lymphocytes # (Manual) 1.3 K/mm3 (1.2-5.4) 07/06/20 07:05 Abs React Lymphs (Man) 0.0 K/mm3 07/06/20 07:05 Monocytes # (Manual) 0.2 K/mm3 (0.0-0.8) 07/06/20 07:05 Eosinophils # (Manual) 0.3 K/mm3 (0.0-0.4) 07/06/20 07:05 Basophils # (Manual) 0.0 K/mm3 (0.0-0.1) 07/06/20 07:05 Metamyelocytes # 0.0 K/mm3 07/06/20 07:05 Myelocytes # 0.0 K/mm3 07/06/20 07:05 Promyelocytes # 0.0 K/mm3 07/06/20 07:05 Blast Cells # 0.0 K/mm3 07/06/20 07:05 Pathologist Review 07/01/20 21:00 WBC Morphology Not Reportable 07/06/20 07:05 Hypersegmented Neuts Not Reportable 07/06/20 07:05 Hyposegmented Neuts Not Reportable 07/06/20 07:05 Hypogranular Neuts Not Reportable 07/06/20 07:05 Smudge Cells Not Reportable 07/06/20 07:05 Toxic Granulation Not Reportable 07/06/20 07:05 Toxic Vacuolation Not Reportable 07/06/20 07:05 Dohle Bodies Not Reportable 07/06/20 07:05 Pelger-Huet Anomaly Not Reportable 07/06/20 07:05 Jeanna Rods Not Reportable 07/06/20 07:05 Platelet Estimate Consistent w auto 07/06/20 07:05 Clumped Platelets Not Reportable 07/06/20 07:05 Plt Clumps, EDTA Not Reportable 07/06/20 07:05 Large Platelets Few 07/06/20 07:05 Giant Platelets Not Reportable 07/06/20 07:05 Platelet Satelliting Not Reportable 07/06/20 07:05 Plt Morphology Comment Not Reportable 07/06/20 07:05 RBC Morphology Not Reportable 07/06/20 07:05 Dimorphic RBCs Not Reportable 07/06/20 07:05 Polychromasia Not Reportable 07/06/20 07:05 Hypochromasia Not Reportable 07/06/20 07:05 Poikilocytosis 1+ 07/06/20 07:05 Anisocytosis 1+ 07/06/20 07:05 Microcytosis Not Reportable 07/06/20 07:05 Macrocytosis Not Reportable 07/06/20 07:05 Spherocytes Not Reportable 07/06/20 07:05 Pappenheimer Bodies Not Reportable 07/06/20 07:05 Sickle Cells Not Reportable 07/06/20 07:05 Target Cells Not Reportable 07/06/20 07:05 Tear Drop Cells Not Reportable 07/06/20 07:05 Ovalocytes Not Reportable 07/06/20 07:05 Helmet Cells Not Reportable 07/06/20 07:05 [place] Bodies Not Reportable 07/06/20 07:05 [place] Rings Not Reportable 07/06/20 07:05 [place] Cells 1+ 07/06/20 07:05 Bite Cells Not Reportable 07/06/20 07:05 Crenated Cell Not Reportable 07/06/20 07:05 Elliptocytes Not Reportable 07/06/20 07:05 Acanthocytes (Spur) Not Reportable 07/06/20 07:05 Rouleaux Not Reportable 07/06/20 07:05 Hemoglobin C Crystals Not Reportable 07/06/20 07:05 Schistocytes Rare 07/06/20 07:05 Malaria parasites Not Reportable 07/06/20 07:05 Raheem Bodies Not Reportable 07/06/20 07:05 Hem Pathologist Commnt No 07/06/20 07:05 PT 17.5 Sec. (12.2-14.9) H 07/03/20 05:03 INR 1.45 (0.87-1.13) H 07/03/20 05:03 Sodium 143 mmol/L (137-145) 07/06/20 07:05 Potassium 3.2 mmol/L (3.6-5.0) L 07/06/20 07:05 Chloride 115.2 mmol/L (98-107) H 07/06/20 07:05 Carbon Dioxide 15 mmol/L (22-30) L 07/06/20 07:05 Anion Gap 16 mmol/L 07/06/20 07:05 BUN 58 mg/dL (9-20) H 07/06/20 07:05 Creatinine 3.2 mg/dL (0.8-1.3) H 07/06/20 07:05 Estimated GFR 23 ml/min 07/06/20 07:05 BUN/Creatinine Ratio 18 % 07/06/20 07:05 Glucose 137 mg/dL (75-100) H 07/06/20 07:05 POC Glucose 115 mg/dL (70-105) H 07/07/20 07:48 Lactic Acid 1.60 mmol/L (0.7-2.0) 07/01/20 23:35 Calcium 7.3 mg/dL (8.4-10.2) L 07/06/20 07:05 Phosphorus 5.90 mg/dL (2.5-4.5) H 07/02/20 13:44 Magnesium 1.80 mg/dL (1.7-2.3) 07/05/20 05:59 Total Bilirubin 0.20 mg/dL (0.1-1.2) 07/01/20 21:00 AST 27 units/L (5-40) 07/01/20 21:00 ALT 18 units/L (7-56) 07/01/20 21:00 Alkaline Phosphatase 128 units/L (35-129) 07/01/20 21:00 Troponin T 0.115 ng/mL (0.00-0.029) H* D 07/06/20 07:05 Total Protein 5.6 g/dL (6.3-8.2) L 07/01/20 21:00 Albumin 1.8 g/dL (3.9-5) L 07/01/20 21:00 Albumin/Globulin Ratio 0.5 % 07/01/20 21:00 Triglycerides 38 mg/dL (2-149) 07/01/20 21:00 Cholesterol 62 mg/dL (50-199) 07/01/20 21:00 LDL Cholesterol Direct 19 mg/dL (50-130) L 07/01/20 21:00 HDL Cholesterol 37 mg/dL (40-59) L 07/01/20 21:00 Cholesterol/HDL Ratio 1.67 % 07/01/20 21:00 Procalcitonin 24.35 ng/mL (<0.15) 07/02/20 13:44 Urine Color Yellow (Yellow) 07/01/20 23:17 Urine Turbidity Turbid (Clear) 07/01/20 23:17 Urine pH 6.0 (5.0-7.0) 07/01/20 23:17 Ur Specific [place] 1.012 (1.003-1.030) 07/01/20 23:17 Urine Protein 100 mg/dl mg/dL (Negative) 07/01/20 23:17 Urine Glucose (UA) Neg mg/dL (Negative) 07/01/20 23:17 Urine Ketones Neg mg/dL (Negative) 07/01/20 23:17 Urine Blood Sm (Negative) 07/01/20 23:17 Urine Nitrite Pos (Negative) 07/01/20 23:17 Urine Bilirubin Neg (Negative) 07/01/20 23:17 Urine Urobilinogen < 2.0 mg/dL (<2.0) 07/01/20 23:17 Ur Leukocyte Esterase Lg (Negative) 07/01/20 23:17 Urine WBC (Auto) > 182.0 /HPF (0.0-6.0) H 07/01/20 23:17 Urine RBC (Auto) 42.0 /HPF (0.0-6.0) 07/01/20 23:17 U Epithel Cells (Auto) 6.0 /HPF (0-13.0) 07/01/20 23:17 Urine Bacteria (Auto) 2+ /HPF (Negative) 07/01/20 23:17 Urine WBC Clumps 3+ /HPF 07/01/20 23:17 Urine Mucus 2+ /HPF 07/01/20 23:17 Urine Yeast (Budding) 3+ /HPF 07/01/20 23:17 Urine Creatinine 85.5 mg/dL (0.1-20.0) H 07/02/20 13:27 Urine Sodium 37 mmol/L 07/02/20 13:27 Random Vancomycin 10.4 ug/mL (0-40.0) 07/03/20 05:03 C. difficile Tox (PCR) Positive (Negative) 07/02/20 12:30 Coronavirus (PCR) Negative (Negative) 07/05/20 Unknown Microbiology: Microbiology 07/01/20 21:00 Peripheral/Venous Blood Culture - Final NO GROWTH AFTER 5 DAYS 07/01/20 21:09 Peripheral/Venous Blood Culture - Final NO GROWTH AFTER 5 DAYS Das/IV: Voiding Method Indwelling Catheter Active Medications - Current Medications Current Medications: Generic Name Dose Route Start Last Admin Trade Name Freq PRN Reason Stop Dose Admin Atorvastatin Calcium 10 mg 07/04/20 22:00 07/06/20 22:05 Atorvastatin 10 Mg Tab PO 10 mg QHS HARLEY Administration Famotidine 20 mg 07/02/20 22:00 07/06/20 22:05 Famotidine 20 Mg Tab PO 20 mg QHS HARLEY Administration Heparin Sodium (Porcine) 5,000 unit 07/02/20 06:00 07/07/20 05:29 Heparin 5,000 Unit/1 Ml Vial SUB-Q 5,000 unit Q8HR HARLEY Administration Sodium Bicarbonate 150 meq/ 1,150 mls @ 100 mls/hr 07/03/20 11:00 07/06/20 23:26 Dextrose IV 75 mls/hr DIRECT HARLEY Administration Metronidazole 500 mg in 100 mls @ 100 mls/hr 07/04/20 22:00 07/07/20 05:28 Flagyl 500 Mg/100 Ml IV 100 mls/hr Q8HR HARLEY Administration Protocol Insulin Human Lispro 0 unit 07/06/20 16:30 07/06/20 22:36 Insulin Lispro 100 Unit/Ml SUB-Q 1 unit ACHS [facility] Administration Protocol Magnesium Hydroxide 30 ml 07/02/20 01:22 Magnesium Hydroxide (Mom) Oral Liqd Udc PO Q4H PRN Constipation Metoprolol Tartrate 6.25 mg 07/05/20 22:00 07/06/20 22:35 Metoprolol Tartrate 25 Mg Tab PO Not Given BID HARLEY Morphine Sulfate 2 mg 07/02/20 01:22 Morphine 2 Mg/1 Ml Inj IV Q4H PRN Pain, Moderate (4-6) Ondansetron HCl 4 mg 07/02/20 01:22 Ondansetron 4 Mg/2 Ml Inj IV Q8H PRN Nausea And Vomiting Potassium Chloride 40 meq 07/05/20 10:00 07/06/20 09:02 Potassium Chloride Er 20 Meq Tab PO 40 meq QDAY HARLEY Administration Sodium Chloride 10 ml 07/02/20 10:00 07/06/20 22:06 Sodium Chloride 0.9% 10 Ml Flush Syringe IV 10 ml BID HARLEY Administration Sodium Chloride 10 ml 07/02/20 01:22 Sodium Chloride 0.9% 10 Ml Flush Syringe IV PRN PRN LINE FLUSH Vancomycin HCl 500 mg 07/04/20 14:00 07/07/20 02:00 Vancomycin 250 Mg/10 Ml Oral Liqd PO 500 mg Q6H HARLEY Administration Protocol Nutrition/Malnutrition Assess - Dietary Evaluation Nutrition/Malnutrition Findings: Nutrition Notes Start: 07/02/20 14:33 Freq: Status: Active Protocol: Document 07/02/20 14:33 AL (Rec: 07/02/20 14:47 AL [id number]) Co-Sign 07/02/20 14:33 LP Nutrition Notes Need for Assessment generated from: MD Order,Education Initial or Follow up Assessment Current Diagnosis Acute Kidney Injury,Heart Failure Other Pertinent Diagnosis C diff Current Diet Cardiac Diet Labs/Tests Na 135 BUN 51 Cr 3.1 Pertinent Medications NS at 150 ml/hr Height 5 ft 7 in Weight 60.8 kg [place] Body Weight (kg) 67.27 BMI 20.9 Weight Status Appropriate Subjective/Other Information MD consult for diet education. Pt reports losing weight, but unaware of how much weight lost. Pt reports having good appetite, but just can't eat. Per RN, pt is eating 25% of meals and suggests Nepro. At rounds, Dr ordered pt to recieve swallow eval. Burn Absent Trauma Absent Skin Integrity/Comment Sacral wound Current % PO Poor (25-49%) Body Fat Depletion Mild depletion (non-severe) Reduced Production Editor Strength Measurably Reduced (severe) #3 Nutrition Diagnosis Food and nutrition-related knowledge deficit Etiology heart failure, HTN As Evidenced by Signs and Symptoms Pt never recieved diet education before. #2 Nutrition Diagnosis Increased nutrient needs ( specify in comment below) Comments: protein Etiology Need for wound healing As Evidenced by Signs and Symptoms Sacral wound #1 Nutrition Diagnosis Malnutrition Etiology paraplegia, dementia As Evidenced by Signs and Symptoms reduced cabin supervisor strength and body -fat depletion Is patient on ventilator? No Is Patient Ambulatory and/or Out of Bed No REE-([place]-confined to bed) 1603.848 Calculation Used for Recommendations [place] Additional Notes Protein: 73-90 g (1.2-1.5 g/kg ) Fluid: 7214-3133 mL or per MD order. Nutrition Intervention Change Diet Order: Continue current diet unless WEIGHT SHIFTER recommends something else. Add Supplement/Snack (indicate name/kcal Nepro BID /protein ) Provides kCal: 950 Provides Protein (gm) 40 Teaching Recipient Patient Learning Readiness Fair Teaching Methods Discussion,Handout Response to Teaching Verbalize understanding Education Handouts Provided General Healthful Nutrition Tips. Barriers to Learning Auditory RD phone number provided Yes Patient aware of follow up options Yes Goal #1 Meet at least 75% of estimated energy and protein needs. Goal #2 ONS tolerance. Anticipated Discharge Needs: Unable to determine at this time. Follow-Up By: 07/11/20 Additional Comments FU for WEIGHT SHIFTER recommendations, intakes, and ONS tolerance.
[2020-07-07 08:59] LABS: Hematocrit 29.7 % (35.5-45.6); Hemoglobin 9.7 gm/dl (11.8-15.2); Mean Corpuscular HGB Conc 33 % (32-34); Mean Corpuscular Volume 86 fl (84-94); Platelet Count 528 K/mm3 (140-440); Red Blood Count 3.44 M/mm3 (3.65-5.03); Red Cell Distribution Width 19.7 % (13.2-15.2)
[2020-07-07] MEDS: METOPROLOL TARTRATE 25 MG TAB PO SCH ×3 (09:02→22:26)
[2020-07-07] MEDS: POTASSIUM CHLORIDE ER 20 MEQ TAB PO SCH (09:03)
[2020-07-07 09:19] LABS: Calcium 7.3 mg/dL (8.4-10.2)
--- NOTE | 2020-07-07 09:22 | Progress Note ---
Assessment and Plan Obtain repeat ECG for eval of QTc. Unable to tolerate Lopressor at this time due to hypotension. May consider PO Amio if needed; however, rate is currently controlled. No anticoagulation for AF in the setting of anemia and bleeding risk. Pt seen in conjunction with Dr. Velasco, who agrees with the assessment and plan of care. - Patient Problems (1) Sepsis Current Visit: Yes Status: Acute (2) Sacral ulcer Current Visit: Yes Status: Acute (3) Complicated urinary tract infection Current Visit: Yes Status: Acute (4) Colitis Current Visit: Yes Status: Acute (5) FRED (acute kidney injury) Current Visit: Yes Status: Acute (6) Atrial fibrillation with RVR Current Visit: Yes Status: Acute (7) Anemia Current Visit: Yes Status: Acute (8) NSTEMI (non-ST elevated myocardial infarction) Current Visit: Yes Status: Acute Plan to address problem: Type 2 (9) HLD (hyperlipidemia) Current Visit: Yes Status: Chronic Qualifiers: Hyperlipidemia type: mixed hyperlipidemia Qualified Code(s): E78.2 - Mixed hyperlipidemia (10) H/O: HTN (hypertension) Current Visit: Yes Status: Chronic Subjective Date of service: 07/06/20 Principal diagnosis: Sepsis/UTI/Colitis, AF with RVR Interval history: Weaned off Midodrine, but remains hypotensive. Tele reviewed - AF 90s - low 100s. Objective Last Vital Signs Temp 97.6 F 07/06/20 17:57 Pulse 79 07/06/20 17:57 Resp 20 07/06/20 17:57 BP 118/67 07/06/20 17:57 Pulse Ox 97 07/06/20 17:57 - Physical Examination General: No Apparent Distress HEENT: Positive: Normocephaly, Mucus Membranes Moist Neck: Positive: neck supple, trachea midline. Negative: JVD/HJR Cardiac: Positive: irregularly irregular, S1/S2 Lungs: Positive: Decreased Breath Sounds Neuro: Positive: Grossly Intact Abdomen: Positive: Soft Skin: Positive: Wound. Negative: Rash Musculoskeletal: No Fluid Collection Extremities: Present: upper extr. pulses, lower extr. pulses. Absent: edema - Labs and Meds CBC 07/06/20 Range/Units 07:05 WBC 31.3 H (4.5-11.0) K/mm3 RBC 3.41 L (3.65-5.03) M/mm3 Hgb 9.3 L (11.8-15.2) gm/dl Hct 29.0 L (35.5-45.6) % Plt Count 550 H (140-440) K/mm3 Comprehensive Metabolic Panel 07/06/20 Range/Units 07:05 Sodium 143 (137-145) mmol/L Potassium 3.2 L (3.6-5.0) mmol/L Chloride 115.2 H (98-107) mmol/L Carbon Dioxide 15 L (22-30) mmol/L BUN 58 H (9-20) mg/dL Creatinine 3.2 H (0.8-1.3) mg/dL Glucose 137 H (75-100) mg/dL Calcium 7.3 L (8.4-10.2) mg/dL - Imaging and Cardiology EKG: report reviewed, image reviewed Echo: report reviewed (07/02/2020 - EF 50-55%, grade 1 diastolic dysfxn, mild MR, mild pulm HTN) Repolarization changes or abnormalities: nonspecific abnormality, ST segment, and/or T wave, Q-T interval prolongation - Allied health notes Allied health notes reviewed: nursing
[2020-07-07 10:32] LABS: Total Cells Counted 100
[2020-07-07 10:33] LABS: Burr Cells Rare; Hypochromasia 1+; Ovalocytes Rare
[2020-07-07 10:34] LABS: Poikilocytosis 1+
[2020-07-07 10:35] LABS: Anisocytosis Few; Platelet Estimate Consistent w Auto
--- NOTE | 2020-07-07 11:58 | Progress Note ---
Assessment and Plan - Patient Problems (1) FRED (acute kidney injury) Current Visit: Yes Status: Acute Plan to address problem: Likely in the setting of prerenal injury in the setting of urinary tract infection and possible exacerbation of colitis with previous history of C. difficile colitis per nursing staff. Agree with current regimen with aggressive IV fluid hydration and hemodynamic management. Antibiotics to target urinary tract infection. Will obtain a renal ultrasound along with urine electrolytes for further evaluation. Please avoid all nephrotoxins at this time given his acute kidney injury. We will be monitoring carefully. We will need to make sure that his mean arterial pressures remain above 65 mmHg which to have been at this time. He has not required pressors at this time. Would maintain patient on current IVF hydration. (2) Metabolic acidosis Current Visit: Yes Status: Acute Plan to address problem: In the setting of acute kidney injury with questionable history of diarrheal symptoms and apparently finding of colitis that is chronic in nature on his most recent CT scan. We are maintaining patient on IV fluid hydration which we will switch to NS at this time. Will add him on sodium bicarbonate 650 mg TID. (3) C. difficile colitis Current Visit: Yes Status: Acute Plan to address problem: C. difficile PCR is positive at this time. ID recommendations appreciated. (4) Complicated urinary tract infection Current Visit: Yes Status: Acute Plan to address problem: Please ensure that antibiotics are dosed appropriately for his decreased renal function. Subjective Date of service: 07/07/20 Principal diagnosis: Sepsis/UTI/Colitis, AF with RVR Interval history: No acute events reported. Labs reviewed, renal function showing improvement. Objective - Vital Signs Vital signs: Vital Signs - 12hr 07/07/20 09:09 Pulse Rate 62 Blood Pressure 97/63 - General Appearance General appearance: chronically ill, frail EENT: ATNC Neck: no JVD Respiratory: Present: Clear to Ascultation Cardiology: regular Gastrointestinal: normal Neurologic: confused - Lab 07/07/20 08:23 07/07/20 08:23 Most recent lab results Calcium 7.3 mg/dL (8.4-10.2) L 07/07/20 08:23 Phosphorus 5.90 mg/dL (2.5-4.5) H 07/02/20 13:44 Magnesium 1.80 mg/dL (1.7-2.3) 07/05/20 05:59 Urine Creatinine 85.5 mg/dL (0.1-20.0) H 07/02/20 13:27 Urine Sodium 37 mmol/L 07/02/20 13:27 - Allied health notes Allied health notes reviewed: nursing Medications & Allergies - Medications Allergies/Adverse Reactions: Allergies No Known Allergies Allergy (Verified 07/01/20 23:23) Home Medications: Home Medications Medication Instructions Recorded Confirmed Last Taken Type Acetaminophen [Aphen] 325 mg PO PRN PRN 07/02/20 07/02/20 Unknown History Amlodipine Besylate [Norvasc] 10 mg PO DAILY 07/02/20 07/02/20 Unknown History Ascorbic Acid/Ascorbate Sodium 500 mg PO DAILY 07/02/20 07/02/20 Unknown History [Vit C-Alyce Hips 500 mg Chew Tb] Aspirin [Adult Aspirin] 81 mg PO DAILY 07/02/20 07/02/20 Unknown History AtorvaSTATin [Lipitor] 10 mg PO QHS 07/02/20 07/02/20 Unknown History Ciprofloxacin HCl 500 mg PO Q8HR 07/02/20 07/02/20 Unknown History Diclofenac 1% [Diclofenac 1% 1 applic TP Q6HR 07/02/20 07/02/20 Unknown History topical gel] Epoetin Baljeet [Procrit] 3,000 unit SQ QWEEK 07/02/20 07/02/20 Unknown History Heparin Sodium,Porcine [Heparin 5,000 unit SUB-Q Q8HR 07/02/20 07/02/20 Unknown History Sodium] Ipratropium/Albuterol Sulfate 1 ampul IH Q6HR 07/02/20 07/02/20 Unknown History [DUONEB *Not for PRN Use*] Lispro Insulin [HumaLOG] 0 unit SQ ACHS 07/02/20 07/02/20 Unknown History Multivit-Minerals/Folic Acid 1 tab PO DAILY 07/02/20 07/02/20 Unknown History [Adult One Daily Multivit Tab] PANTOPRAZOLE SODIUM (nf) [Protonix 40 mg PO QAM 07/02/20 07/02/20 Unknown History GRANULES] Zinc Sulfate 220 mg PO DAILY 07/02/20 07/02/20 Unknown History allopurinoL [Zyloprim] 100 mg PO QDAY 07/02/20 07/02/20 Unknown History hydrALAZINE [Apresoline TAB] 100 mg PO TID 07/02/20 07/02/20 Unknown History Active Medications: Generic Name Dose Route Start Last Admin Trade Name Freq PRN Reason Stop Dose Admin Atorvastatin Calcium 10 mg 07/04/20 22:00 07/06/20 22:05 Atorvastatin 10 Mg Tab PO 10 mg QHS HARLEY Administration Famotidine 20 mg 07/02/20 22:00 07/06/20 22:05 Famotidine 20 Mg Tab PO 20 mg QHS HARLEY Administration Heparin Sodium (Porcine) 5,000 unit 07/02/20 06:00 07/07/20 05:29 Heparin 5,000 Unit/1 Ml Vial SUB-Q 5,000 unit Q8HR HARLEY Administration Sodium Bicarbonate 150 meq/ 1,150 mls @ 100 mls/hr 07/03/20 11:00 07/06/20 23:26 Dextrose IV 75 mls/hr DIRECT HARLEY Administration Metronidazole 500 mg in 100 mls @ 100 mls/hr 07/04/20 22:00 07/07/20 05:28 Flagyl 500 Mg/100 Ml IV 100 mls/hr Q8HR HARLEY Administration Protocol Insulin Human Lispro 0 unit 07/06/20 16:30 07/07/20 11:30 Insulin Lispro 100 Unit/Ml SUB-Q 1 unit ACHS HARLEY Administration Protocol Magnesium Hydroxide 30 ml 07/02/20 01:22 Magnesium Hydroxide (Mom) Oral Liqd Udc PO Q4H PRN Constipation Metoprolol Tartrate 6.25 mg 07/05/20 22:00 07/07/20 09:09 Metoprolol Tartrate 25 Mg Tab PO Not Given BID HARLEY Morphine Sulfate 2 mg 07/02/20 01:22 Morphine 2 Mg/1 Ml Inj IV Q4H PRN Pain, Moderate (4-6) Ondansetron HCl 4 mg 07/02/20 01:22 Ondansetron 4 Mg/2 Ml Inj IV Q8H PRN Nausea And Vomiting Potassium Chloride 40 meq 07/05/20 10:00 07/07/20 09:03 Potassium Chloride Er 20 Meq Tab PO 40 meq QDAY HARLEY Administration Sodium Chloride 10 ml 07/02/20 10:00 07/07/20 09:04 Sodium Chloride 0.9% 10 Ml Flush Syringe IV 10 ml BID HARLEY Administration Sodium Chloride 10 ml 07/02/20 01:22 Sodium Chloride 0.9% 10 Ml Flush Syringe IV PRN PRN LINE FLUSH Vancomycin HCl 500 mg 07/04/20 14:00 07/07/20 08:00 Vancomycin 250 Mg/10 Ml Oral Liqd PO 500 mg Q6H HARLEY Administration Protocol
[2020-07-07] MEDS: SODIUM BICARBONATE 650 MG TAB PO SCH ×2 (13:02→22:06)
--- NOTE | 2020-07-07 14:18 | Progress Note ---
Assessment and Plan Cultures: Blood culture 07/02/2020 no growth today C. difficile PCR positive Urine culture with mixed flavio Assessment: 70-year-old male with history of paraplegia, dementia, chronic sacral decubitus ulcer, peripheral vascular disease, CHF, hypertension, vertebral sacral osteomyelitis admitted on 07/02/2020 secondary to abnormal labs at the half-way. WBC was found to be 43.2, afebrile today patient stools: #Severe sepsis: Leukocytosis better 49K-->57-->48-->42K--->28K, likely secondary to C. difficile colitis. #Colitis: CT shows chronic colitis. Patient with large liquid bowel movements in route to the hospital x 4. Suspect C. difficile colitis #Complicated UTI: CT shows left kidney stone nonobstructive. Completed 3 days of cefepime #FRED: Likely due to sepsis/dehydration. Better. #Sacral decubitus: Not Infected, needs wound care evaluation. Apparently recently treated. Recommendations: -Continue oral vancomycin 500 mg p.o. 4 times daily D6 -Continue metronidazole 500 g IV every 8 hours D6 -Sacral offloading -Follow-up blood cultures -Monitor leukocytosis which is improved -Check KUB -If continue to improve will stop IV flagyl and decrease po vanco to 250 mg QID -remove brown if not needed Will follow. Nunu Barroso MD Infectious Diseases [employer] [facility] [phone] Subjective Date of service: 07/07/20 Principal diagnosis: Sepsis/UTI/Colitis, AF with RVR Interval history: Feels better, awake, ED, nonverbal. Objective - Exam Narrative Exam: General appearance: Alert in NAD ED Eyes: anicteric sclerae, moist conjunctivae; no lid-lag; PERRLA HENT: Normocephalic, Atraumatic; normal external ears, nares open, oropharynx limited, partially edentulous Neck: supple, tracheal midline, no JVD Lungs: CTA, with normal respiratory effort and no intercostal retractions CV: RRR no murmur Abdomen: Soft, non-tender Extremities: no edema, no cyanosis Skin: Sacral area not examined Psych: no agitated Neuro: alert follows simple commands - Constitutional Vitals: Vital Signs Temp Pulse Resp BP Pulse Ox 98.3 F 62 18 97/63 100 07/06/20 22:23 07/07/20 09:09 07/06/20 22:23 07/07/20 09:09 07/06/20 22:23 Temperature -Last 24 Hours Temperature 98.3 F Temperature 97.6 F - Labs CBC & Chem 7: 07/07/20 08:23 07/07/20 08:23 Labs: Abnormal lab results 07/06/20 07/06/20 07/06/20 Range/Units 11:30 16:09 22:11 WBC (4.5-11.0) K/mm3 RBC (3.65-5.03) M/mm3 Hgb (11.8-15.2) gm/dl Hct (35.5-45.6) % RDW (13.2-15.2) % Plt Count (140-440) K/mm3 Lymphocytes % (Manual) (13.4-35.0) % Seg Neutrophils # Man (1.8-7.7) K/mm3 Lymphocytes # (Manual) (1.2-5.4) K/mm3 Potassium (3.6-5.0) mmol/L Chloride (98-107) mmol/L Carbon Dioxide (22-30) mmol/L BUN (9-20) mg/dL Creatinine (0.8-1.3) mg/dL Glucose (75-100) mg/dL POC Glucose 188 H 153 H 198 H (70-105) mg/dL Calcium (8.4-10.2) mg/dL 07/07/20 07/07/20 07/07/20 Range/Units 07:48 08:23 08:23 WBC 18.3 H (4.5-11.0) K/mm3 RBC 3.44 L (3.65-5.03) M/mm3 Hgb 9.7 L (11.8-15.2) gm/dl Hct 29.7 L (35.5-45.6) % RDW 19.7 H (13.2-15.2) % Plt Count 528 H (140-440) K/mm3 Lymphocytes % (Manual) 6.0 L (13.4-35.0) % Seg Neutrophils # Man 16.8 H (1.8-7.7) K/mm3 Lymphocytes # (Manual) 1.1 L (1.2-5.4) K/mm3 Potassium 3.3 L (3.6-5.0) mmol/L Chloride 113.7 H (98-107) mmol/L Carbon Dioxide 17 L (22-30) mmol/L BUN 55 H (9-20) mg/dL Creatinine 2.7 H (0.8-1.3) mg/dL Glucose 117 H (75-100) mg/dL POC Glucose 115 H (70-105) mg/dL Calcium 7.3 L (8.4-10.2) mg/dL 07/07/20 Range/Units 11:22 WBC (4.5-11.0) K/mm3 RBC (3.65-5.03) M/mm3 Hgb (11.8-15.2) gm/dl Hct (35.5-45.6) % RDW (13.2-15.2) % Plt Count (140-440) K/mm3 Lymphocytes % (Manual) (13.4-35.0) % Seg Neutrophils # Man (1.8-7.7) K/mm3 Lymphocytes # (Manual) (1.2-5.4) K/mm3 Potassium (3.6-5.0) mmol/L Chloride (98-107) mmol/L Carbon Dioxide (22-30) mmol/L BUN (9-20) mg/dL Creatinine (0.8-1.3) mg/dL Glucose (75-100) mg/dL POC Glucose 183 H (70-105) mg/dL Calcium (8.4-10.2) mg/dL
--- NOTE | 2020-07-07 15:23 | Progress Note ---
Assessment and Plan Septic shock, presumably Urinary tract infection Sacral decubitus ulcer present on arrival Acute kidney injury Possible Clostridium difficile colitis Leukocytosis Non-ST elevation myocardial infarction Sacral osteomyelitis Severe protein calorie malnutrition Anemia that is normocytic Metabolic acidosis - imporoving, continue care as below; - prn supplemental oxygen to keep O2 sats > 90% - prn bronchodilators (ERIK) with pulm hygiene per RT - continue antiinfective's per ID recommendations (Flagyl & Vancomycin) - continue to avoid nephrotoxins, renally dose all medications - continue mobility protocols to prevent pressure ulcers - PT/OT as tolerated - Wound care per RN/WCT - continue accuchecks with glycemic control per SSI for target blood glucose < 180 mg/dL - prn analgesia per pain score - home oxygen evaluation at discharge - GI & VTE prophylaxis - Flu & pneumovax per protocol - Pulmonary out patient follow up for PFTs and optimization of respiratory status - continue other care per attending / other consultants ... re-evaluate in am & prn Subjective Date of service: 07/06/20 Principal diagnosis: Septic shock; UTI; Sacral decubitus; FRED; C-diff colitis; NSTEMI Interval history: Patient is seen today for: Septic shock; UTI; Sacral decubitus; FRED; Possible Clostridium difficile colitis; NSTEMI; Metabolic acidosis Seen and examined at bedside; 24hour events reviewed; nursing and respiratory care staff consulted; no adverse overnight events reported to me; resting in bed; no acute distress; "i'm fine" denies acute chest pain or SOB Objective Vital Signs - 12hr 07/06/20 07/06/20 07/06/20 05:15 09:07 11:02 Temperature 98.0 F 97.6 F Pulse Rate 67 62 62 Respiratory 16 20 Rate Blood Pressure 113/80 99/64 O2 Sat by Pulse 95 99 Oximetry Constitutional: no acute distress, alert, other (elderly and chronically ill looking male) Eyes: non-icteric ENT: oropharynx moist Neck: supple, no JVD Effort: normal Ascultation: Bilateral: diminished breath sounds Percussion: Bilateral: not dull Cardiovascular: regular rate and rhythm Gastrointestinal: normoactive bowel sounds, soft, non-tender, non-distended Integumentary: normal Extremities: no cyanosis Neurologic: pupils equal and round, CN II-XII normal, other (paraplegic) Psychiatric: mood appropriate, affect normal CBC and BMP: 07/07/20 08:23 07/07/20 08:23 ABG, PT/INR, D-dimer: PT/INR, D-dimer PT 17.5 Sec. (12.2-14.9) H 07/03/20 05:03 INR 1.45 (0.87-1.13) H 07/03/20 05:03 Abnormal lab findings: Abnormal Labs 07/01/20 07/01/20 07/01/20 21:00 21:00 23:17 WBC 47.5 H* RBC 3.05 L Hgb 8.5 L Hct 28.3 L MCH MCHC 30 L RDW 19.7 H Plt Count Seg Neuts % (Manual) 90.0 H Lymphocytes % (Manual) 6.0 L Seg Neutrophils # Man 42.8 H Lymphocytes # (Manual) Monocytes # (Manual) 1.9 H Eosinophils # (Manual) PT INR Sodium 135 L Potassium Chloride 109.5 H Carbon Dioxide 10 L BUN 51 H Creatinine 3.1 H Glucose 114 H POC Glucose Calcium 7.3 L Phosphorus Magnesium Troponin T 0.149 H* Total Protein 5.6 L Albumin 1.8 L LDL Cholesterol Direct 19 L HDL Cholesterol 37 L Urine WBC (Auto) > 182.0 H Urine Creatinine 07/02/20 07/02/20 07/03/20 13:27 13:44 05:03 WBC 59.5 H* RBC 3.03 L Hgb 8.3 L Hct 26.5 L MCH 27 L MCHC 31 L RDW 19.6 H Plt Count 538 H Seg Neuts % (Manual) 89.0 H Lymphocytes % (Manual) 2.0 L Seg Neutrophils # Man 53.0 H Lymphocytes # (Manual) Monocytes # (Manual) Eosinophils # (Manual) PT INR Sodium Potassium Chloride Carbon Dioxide BUN Creatinine Glucose POC Glucose Calcium Phosphorus 5.90 H Magnesium 1.50 L Troponin T Total Protein Albumin LDL Cholesterol Direct HDL Cholesterol Urine WBC (Auto) Urine Creatinine 85.5 H 07/03/20 07/03/20 07/04/20 05:03 05:03 04:58 WBC 48.7 H* RBC 3.05 L Hgb 8.6 L Hct 27.1 L MCH MCHC RDW 19.5 H Plt Count Seg Neuts % (Manual) 92.5 H Lymphocytes % (Manual) 2.0 L Seg Neutrophils # Man 45.0 H Lymphocytes # (Manual) 1.0 L Monocytes # (Manual) Eosinophils # (Manual) PT 17.5 H INR 1.45 H Sodium Potassium 3.3 L Chloride 115.5 H Carbon Dioxide 9 L* BUN 52 H Creatinine 3.2 H Glucose 120 H POC Glucose Calcium 7.2 L Phosphorus Magnesium Troponin T 0.089 H D Total Protein Albumin LDL Cholesterol Direct HDL Cholesterol Urine WBC (Auto) Urine Creatinine 07/04/20 07/04/20 07/04/20 04:58 11:38 16:16 WBC RBC Hgb Hct MCH MCHC RDW Plt Count Seg Neuts % (Manual) Lymphocytes % (Manual) Seg Neutrophils # Man Lymphocytes # (Manual) Monocytes # (Manual) Eosinophils # (Manual) PT INR Sodium Potassium Chloride 117.2 H Carbon Dioxide 9 L* BUN 57 H Creatinine 3.5 H Glucose 138 H POC Glucose 159 H 150 H Calcium 7.8 L Phosphorus Magnesium Troponin T 0.074 H Total Protein Albumin LDL Cholesterol Direct HDL Cholesterol Urine WBC (Auto) Urine Creatinine 07/04/20 07/05/20 07/05/20 21:56 05:59 07:24 WBC RBC Hgb Hct MCH MCHC RDW Plt Count Seg Neuts % (Manual) Lymphocytes % (Manual) Seg Neutrophils # Man Lymphocytes # (Manual) Monocytes # (Manual) Eosinophils # (Manual) PT INR Sodium Potassium 3.2 L Chloride 116.0 H Carbon Dioxide 14 L BUN 60 H Creatinine 3.7 H Glucose 133 H POC Glucose 165 H 111 H Calcium 7.7 L Phosphorus Magnesium Troponin T Total Protein Albumin LDL Cholesterol Direct HDL Cholesterol Urine WBC (Auto) Urine Creatinine 07/05/20 07/05/20 07/05/20 07:51 11:05 11:06 WBC 42.3 H* RBC 3.13 L Hgb 8.8 L Hct 27.1 L MCH MCHC RDW 19.6 H Plt Count 544 H Seg Neuts % (Manual) 94.5 H Lymphocytes % (Manual) 0.5 L Seg Neutrophils # Man 40.0 H Lymphocytes # (Manual) 0.2 L Monocytes # (Manual) Eosinophils # (Manual) 1.1 H PT INR Sodium Potassium Chloride Carbon Dioxide BUN Creatinine Glucose POC Glucose 116 H 135 H Calcium Phosphorus Magnesium Troponin T Total Protein Albumin LDL Cholesterol Direct HDL Cholesterol Urine WBC (Auto) Urine Creatinine 07/05/20 07/05/20 07/06/20 15:37 21:40 07:05 WBC 31.3 H RBC 3.41 L Hgb 9.3 L Hct 29.0 L MCH 27 L MCHC RDW 20.0 H Plt Count 550 H Seg Neuts % (Manual) 93.5 H Lymphocytes % (Manual) 4.0 L Seg Neutrophils # Man 29.3 H Lymphocytes # (Manual) Monocytes # (Manual) Eosinophils # (Manual) PT INR Sodium Potassium Chloride Carbon Dioxide BUN Creatinine Glucose POC Glucose 146 H 184 H Calcium Phosphorus Magnesium Troponin T Total Protein Albumin LDL Cholesterol Direct HDL Cholesterol Urine WBC (Auto) Urine Creatinine 07/06/20 07/06/20 07:05 08:00 WBC RBC Hgb Hct MCH MCHC RDW Plt Count Seg Neuts % (Manual) Lymphocytes % (Manual) Seg Neutrophils # Man Lymphocytes # (Manual) Monocytes # (Manual) Eosinophils # (Manual) PT INR Sodium Potassium 3.2 L Chloride 115.2 H Carbon Dioxide 15 L BUN 58 H Creatinine 3.2 H Glucose 137 H POC Glucose 128 H Calcium 7.3 L Phosphorus Magnesium Troponin T 0.115 H* D Total Protein Albumin LDL Cholesterol Direct HDL Cholesterol Urine WBC (Auto) Urine Creatinine Allied health notes reviewed: nursing
[2020-07-07] MEDS: FAMOTIDINE 20 MG TAB PO SCH (22:06)
[2020-07-08] MEDS: VANCOMYCIN 250 MG/10 ML ORAL LIQD PO SCH ×4 (02:22→20:50)
[2020-07-08] MEDS: metroNIDAZOLE/NS 500 MG/100 ML 500 MG/100 ML BAG IV SCH ×3 (05:02→22:31)
[2020-07-08] MEDS: HEPARIN 5,000 UNIT/1 ML VIAL SUB-Q SCH ×3 (05:03→22:31)
--- NOTE | 2020-07-08 07:58 | Progress Note ---
Assessment and Plan Assessment and plan: Sepsis. Acute kidney injury. Urinary tract infection. Colitis. Metabolic acidosis. Atrial fibrillation Elevated troponin. 07/02/2020. Continue IV fluid hydration. Etiology of acute kidney injury likely secondary to vasomotor nephropathy/prerenal injury. Continue aggressive IV fluid hydration. Follow-up renal ultrasound. Nephrology following. Follow-up stool studies for colitis. Await ID recommendations for IV antibiotics. Consult cardiology for elevated troponin. 07/03/2020. Blood cultures remain negative. Follow-up C. difficile and stool PCR. Continue vancomycin 250 mg p.o. 4 times daily and Flagyl 500 IV every 8 hours. Continue IV vancomycin and cefepime per ID recommendations. Wound care consult. 07/04/2020. Patient continues to have hypotension. Unfortunately unable to give rate control medications due to hypotension. Also, cardiology recommends no anticoagulation given the anemia. Continue midodrine and IV fluid hydration. Patient with significant leukocytosis but blood cultures were found to be negative. Continue antibiotics per ID recommendations for colitis and UTI. Check lactic acid. Continue bicarbonate for metabolic acidosis per nephrology recommendations. 07/05/2020. Hypotension appears to be improved this morning. No anticoagulation for AF at this time in the setting of anemia. Start rate control medications per cardiology. Continue oral vancomycin and IV Flagyl for the colitis. Blood and urine cultures are negative. Wound care consult for sacral decubitus. 07/06/2020. Patient with severe sepsis secondary to C. difficile colitis. Continue oral vancomycin and IV Flagyl. Leukocytosis is profound but improved. Patient completed IV antibiotics for complicated UTI. Continue to follow blood cultures. Wound care for sacral decubitus. Continue metoprolol for rate control of A. fib. No anticoagulation due to severe anemia and risk of bleeding. Etiology of acute kidney injury secondary to vasomotor nephropathy/prerenal injury in the setting of urinary tract infection and C. difficile colitis. Continue aggressive IV fluid hydration per nephrology. 07/07/2020. Follow-up CBC for profound leukocytosis. Blood cultures with no growth x5 days. Patient with severe sepsis secondary to C. difficile colitis. Continue oral vancomycin and IV Flagyl. Wound care for sacral decubitus. Continue metoprolol for rate control of A. fib. No anticoagulation due to severe anemia and risk of bleeding. Continue aggressive IV fluid hydration and follow-up BMP. Nephrology, cardiology and ID following. 07/08/2020. Leukocytosis continues to improve. Follow-up CBC today. Blood cultures are negative. Patient with severe sepsis secondary to C. difficile colitis. Continue oral vancomycin and IV Flagyl. Wound care for sacral dec ubitus. Patient was previously on Lopressor for rate control with A. fib but unable to tolerate at this time due to hypotension. Consider amiodarone per cardiology.rate is controlled at present. No anticoagulation due to severe anemia and risk of bleeding. Continue aggressive IV fluid hydration and follow- up BMP. Nephrology, cardiology and ID following. History Interval history: 70-year-old -Turkish male with a history of dementia coming in from a [facility] facility presented to the emergency department secondary to worsening weakness. Was found to be hypotensive and requiring multiple IV fluid boluses both in transit as well as in the emergency department. Nephrology consulted secondary to labs indicating acute kidney injury. Urinalysis indicating a urinary tract infection. He also apparently had issues with 2 loose bowel movements in the emergency department. CT scan of the abdomen and pelvis was done without contrast indicating evidence of what seems to be chronic colitis. No new issues overnight. Hospitalist Physical - Constitutional Vitals: Temp Pulse Resp BP Pulse Ox 98.1 F 61 18 114/76 98 07/08/20 04:18 07/08/20 04:18 07/08/20 04:18 07/08/20 04:18 07/08/20 04:18 General appearance: Present: other (Altered mental status) - EENT Eyes: Present: PERRL, EOM intact ENT: hearing intact, clear oral mucosa, dentition normal - Neck Neck: Present: supple, normal ROM - Respiratory Respiratory effort: normal Respiratory: bilateral: CTA - Cardiovascular Rhythm: regular Heart Sounds: Present: S1 & S2. Absent: gallop, rub - Extremities Extremities: no ischemia, No edema, Full ROM - Abdominal General gastrointestinal: soft, non-tender, non-distended, normal bowel sounds - Integumentary Integumentary: Present: clear, warm, dry - Neurologic Neurologic: CNII-XII intact, moves all extremities HEART Score - HEART Score Troponin: Troponin T 0.115 ng/mL (0.00-0.029) H* D 07/06/20 07:05 Results - Labs CBC & Chem 7: 07/07/20 08:23 07/07/20 08:23 Labs: Laboratory Last Values WBC 18.3 K/mm3 (4.5-11.0) H 07/07/20 08:23 RBC 3.44 M/mm3 (3.65-5.03) L 07/07/20 08:23 Hgb 9.7 gm/dl (11.8-15.2) L 07/07/20 08:23 Hct 29.7 % (35.5-45.6) L 07/07/20 08:23 MCV 86 fl (84-94) 07/07/20 08:23 MCH 28 pg (28-32) 07/07/20 08:23 MCHC 33 % (32-34) 07/07/20 08:23 RDW 19.7 % (13.2-15.2) H 07/07/20 08:23 Plt Count 528 K/mm3 (140-440) H 07/07/20 08:23 Add Manual Diff Complete 07/07/20 08:23 Total Counted 100 07/07/20 08:23 Seg Neutrophils % [place] Worker 07/04/20 04:58 Seg Neuts % (Manual) 93.5 % (40.0-70.0) H 07/06/20 07:05 Band Neutrophils % 1.0 % 07/06/20 07:05 Lymphocytes % (Manual) 6.0 % (13.4-35.0) L 07/07/20 08:23 Monocytes % (Manual) 1.0 % (0.0-7.3) 07/07/20 08:23 Eosinophils % (Manual) 1.0 % (0.0-4.3) 07/07/20 08:23 Metamyelocytes % 1.0 % 07/04/20 04:58 Myelocytes % 1.0 % 07/03/20 05:03 Nucleated RBC % Not Reportable 07/07/20 08:23 Seg Neutrophils # Man 16.8 K/mm3 (1.8-7.7) H 07/07/20 08:23 Band Neutrophils # 0.0 K/mm3 07/07/20 08:23 Lymphocytes # (Manual) 1.1 K/mm3 (1.2-5.4) L 07/07/20 08:23 Abs React Lymphs (Man) 0.0 K/mm3 07/07/20 08:23 Monocytes # (Manual) 0.2 K/mm3 (0.0-0.8) 07/07/20 08:23 Eosinophils # (Manual) 0.2 K/mm3 (0.0-0.4) 07/07/20 08:23 Basophils # (Manual) 0.0 K/mm3 (0.0-0.1) 07/07/20 08:23 Metamyelocytes # 0.0 K/mm3 07/07/20 08:23 Myelocytes # 0.0 K/mm3 07/07/20 08:23 Promyelocytes # 0.0 K/mm3 07/07/20 08:23 Blast Cells # 0.0 K/mm3 07/07/20 08:23 Pathologist Review 07/01/20 21:00 WBC Morphology Not Reportable 07/07/20 08:23 Hypersegmented Neuts Not Reportable 07/07/20 08:23 Hyposegmented Neuts Not Reportable 07/07/20 08:23 Hypogranular Neuts Not Reportable 07/07/20 08:23 Smudge Cells Not Reportable 07/07/20 08:23 Toxic Granulation Not Reportable 07/07/20 08:23 Toxic Vacuolation Not Reportable 07/07/20 08:23 Dohle Bodies Not Reportable 07/07/20 08:23 Pelger-Huet Anomaly Not Reportable 07/07/20 08:23 Jeanna Rods Not Reportable 07/07/20 08:23 Platelet Estimate Consistent w auto 07/07/20 08:23 Clumped Platelets Not Reportable 07/07/20 08:23 Plt Clumps, EDTA Not Reportable 07/07/20 08:23 Large Platelets Not Reportable 07/07/20 08:23 Giant Platelets Not Reportable 07/07/20 08:23 Platelet Satelliting Not Reportable 07/07/20 08:23 Plt Morphology Comment Not Reportable 07/07/20 08:23 RBC Morphology Not Reportable 07/07/20 08:23 Dimorphic RBCs Not Reportable 07/07/20 08:23 Polychromasia Not Reportable 07/07/20 08:23 Hypochromasia 1+ 07/07/20 08:23 Poikilocytosis 1+ 07/07/20 08:23 Anisocytosis Few 07/07/20 08:23 Microcytosis Not Reportable 07/07/20 08:23 Macrocytosis Not Reportable 07/07/20 08:23 Spherocytes Not Reportable 07/07/20 08:23 Pappenheimer Bodies Not Reportable 07/07/20 08:23 Sickle Cells Not Reportable 07/07/20 08:23 Target Cells Not Reportable 07/07/20 08:23 Tear Drop Cells Not Reportable 07/07/20 08:23 Ovalocytes Rare 07/07/20 08:23 Helmet Cells Not Reportable 07/07/20 08:23 [place] Bodies Not Reportable 07/07/20 08:23 [place] Rings Not Reportable 07/07/20 08:23 Jennifer Cells Rare 07/07/20 08:23 Bite Cells Not Reportable 07/07/20 08:23 Crenated Cell Not Reportable 07/07/20 08:23 Elliptocytes Not Reportable 07/07/20 08:23 Acanthocytes (Spur) Not Reportable 07/07/20 08:23 Rouleaux Not Reportable 07/07/20 08:23 Hemoglobin C Crystals Not Reportable 07/07/20 08:23 Schistocytes Not Reportable 07/07/20 08:23 Malaria parasites Not Reportable 07/07/20 08:23 Raheem Bodies Not Reportable 07/07/20 08:23 Hem Pathologist Commnt No 07/07/20 08:23 PT 17.5 Sec. (12.2-14.9) H 07/03/20 05:03 INR 1.45 (0.87-1.13) H 07/03/20 05:03 Sodium 144 mmol/L (137-145) 07/07/20 08:23 Potassium 3.3 mmol/L (3.6-5.0) L 07/07/20 08:23 Chloride 113.7 mmol/L (98-107) H 07/07/20 08:23 Carbon Dioxide 17 mmol/L (22-30) L 07/07/20 08:23 Anion Gap 17 mmol/L 07/07/20 08:23 BUN 55 mg/dL (9-20) H 07/07/20 08:23 Creatinine 2.7 mg/dL (0.8-1.3) H 07/07/20 08:23 Estimated GFR 28 ml/min 07/07/20 08:23 BUN/Creatinine Ratio 20 % 07/07/20 08:23 Glucose 117 mg/dL (75-100) H 07/07/20 08:23 POC Glucose 122 mg/dL (70-105) H 07/07/20 22:25 Lactic Acid 1.60 mmol/L (0.7-2.0) 07/01/20 23:35 Calcium 7.3 mg/dL (8.4-10.2) L 07/07/20 08:23 Phosphorus 5.90 mg/dL (2.5-4.5) H 07/02/20 13:44 Magnesium 1.80 mg/dL (1.7-2.3) 07/05/20 05:59 Total Bilirubin 0.20 mg/dL (0.1-1.2) 07/01/20 21:00 AST 27 units/L (5-40) 07/01/20 21:00 ALT 18 units/L (7-56) 07/01/20 21:00 Alkaline Phosphatase 128 units/L (35-129) 07/01/20 21:00 Troponin T 0.115 ng/mL (0.00-0.029) H* D 07/06/20 07:05 Total Protein 5.6 g/dL (6.3-8.2) L 07/01/20 21:00 Albumin 1.8 g/dL (3.9-5) L 07/01/20 21:00 Albumin/Globulin Ratio 0.5 % 07/01/20 21:00 Triglycerides 38 mg/dL (2-149) 07/01/20 21:00 Cholesterol 62 mg/dL (50-199) 07/01/20 21:00 LDL Cholesterol Direct 19 mg/dL (50-130) L 07/01/20 21:00 HDL Cholesterol 37 mg/dL (40-59) L 07/01/20 21:00 Cholesterol/HDL Ratio 1.67 % 07/01/20 21:00 Procalcitonin 24.35 ng/mL (<0.15) 07/02/20 13:44 Urine Color Yellow (Yellow) 07/01/20 23:17 Urine Turbidity Turbid (Clear) 07/01/20 23:17 Urine pH 6.0 (5.0-7.0) 07/01/20 23:17 Ur Specific [place] 1.012 (1.003-1.030) 07/01/20 23:17 Urine Protein 100 mg/dl mg/dL (Negative) 07/01/20 23:17 Urine Glucose (UA) Neg mg/dL (Negative) 07/01/20 23:17 Urine Ketones Neg mg/dL (Negative) 07/01/20 23:17 Urine Blood Sm (Negative) 07/01/20 23:17 Urine Nitrite Pos (Negative) 07/01/20 23:17 Urine Bilirubin Neg (Negative) 07/01/20 23:17 Urine Urobilinogen < 2.0 mg/dL (<2.0) 07/01/20 23:17 Ur Leukocyte Esterase Lg (Negative) 07/01/20 23:17 Urine WBC (Auto) > 182.0 /HPF (0.0-6.0) H 07/01/20 23:17 Urine RBC (Auto) 42.0 /HPF (0.0-6.0) 07/01/20 23:17 U Epithel Cells (Auto) 6.0 /HPF (0-13.0) 07/01/20 23:17 Urine Bacteria (Auto) 2+ /HPF (Negative) 07/01/20 23:17 Urine WBC Clumps 3+ /HPF 07/01/20 23:17 Urine Mucus 2+ /HPF 07/01/20 23:17 Urine Yeast (Budding) 3+ /HPF 07/01/20 23:17 Urine Creatinine 85.5 mg/dL (0.1-20.0) H 07/02/20 13:27 Urine Sodium 37 mmol/L 07/02/20 13:27 Random Vancomycin 10.4 ug/mL (0-40.0) 07/03/20 05:03 C. difficile Tox (PCR) Positive (Negative) 07/02/20 12:30 Coronavirus (PCR) Negative (Negative) 07/05/20 Unknown Das/IV: Voiding Method Indwelling Catheter Active Medications - Current Medications Current Medications: Generic Name Dose Route Start Last Admin Trade Name Freq PRN Reason Stop Dose Admin Atorvastatin Calcium 10 mg 07/04/20 22:00 07/07/20 22:06 Atorvastatin 10 Mg Tab PO 10 mg QHS HARLEY Administration Famotidine 20 mg 07/02/20 22:00 07/07/20 22:06 Famotidine 20 Mg Tab PO 20 mg QHS [facility]LEY Administration Heparin Sodium (Porcine) 5,000 unit 07/02/20 06:00 07/08/20 05:03 Heparin 5,000 Unit/1 Ml Vial SUB-Q 5,000 unit Q8HR [facility] Administration Metronidazole 500 mg in 100 mls @ 100 mls/hr 07/04/20 22:00 07/08/20 05:02 Flagyl 500 Mg/100 Ml IV 100 mls/hr Q8HR [facility] Administration Protocol Insulin Human Lispro 0 unit 07/06/20 16:30 07/07/20 22:25 Insulin Lispro 100 Unit/Ml SUB-Q Not Given ACHS [facility] Protocol Magnesium Hydroxide 30 ml 07/02/20 01:22 Magnesium Hydroxide (Mom) Oral Liqd Udc PO Q4H PRN Constipation Metoprolol Tartrate 6.25 mg 07/05/20 22:00 07/07/20 22:26 Metoprolol Tartrate 25 Mg Tab PO Not Given BID HARLEY Morphine Sulfate 2 mg 07/02/20 01:22 Morphine 2 Mg/1 Ml Inj IV Q4H PRN Pain, Moderate (4-6) Ondansetron HCl 4 mg 07/02/20 01:22 Ondansetron 4 Mg/2 Ml Inj IV Q8H PRN Nausea And Vomiting Potassium Chloride 40 meq 07/05/20 10:00 07/07/20 09:03 Potassium Chloride Er 20 Meq Tab PO 40 meq QDAY [facility] Administration Sodium Bicarbonate 650 mg 07/07/20 14:00 07/07/20 22:06 Sodium Bicarbonate 650 Mg Tab PO 650 mg TID HARLEY Administration Sodium Chloride 10 ml 07/02/20 10:00 07/07/20 22:07 Sodium Chloride 0.9% 10 Ml Flush Syringe IV 10 ml BID HARLEY Administration Sodium Chloride 10 ml 07/02/20 01:22 Sodium Chloride 0.9% 10 Ml Flush Syringe IV PRN PRN LINE FLUSH Vancomycin HCl 500 mg 07/04/20 14:00 07/08/20 02:22 Vancomycin 250 Mg/10 Ml Oral Liqd PO 500 mg Q6H HARLEY Administration Protocol Nutrition/Malnutrition Assess - Dietary Evaluation Nutrition/Malnutrition Findings: Nutrition Notes Start: 07/02/20 14:33 Freq: Status: Active Protocol: Document 07/02/20 14:33 AL (Rec: 07/02/20 14:47 AL [id number]) Co-Sign 07/02/20 14:33 LP Nutrition Notes Need for Assessment generated from: MD Order,Education Initial or Follow up Assessment Current Diagnosis Acute Kidney Injury,Heart Failure Other Pertinent Diagnosis C diff Current Diet Cardiac Diet Labs/Tests Na 135 BUN 51 Cr 3.1 Pertinent Medications NS at 150 ml/hr Height 5 ft 7 in Weight 60.8 kg [place] Body Weight (kg) 67.27 BMI 20.9 Weight Status Appropriate Subjective/Other Information MD consult for diet education. Pt reports losing weight, but unaware of how much weight lost. Pt reports having good appetite, but just can't eat. Per RN, pt is eating 25% of meals and suggests Nepro. At rounds, ordered pt to recieve swallow eval. 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 No Is Patient Ambulatory and/or Out of Bed No REE[facility]) 1603.848 Calculation Used for Recommendations [facility] Additional Notes Protein: 73-90 g (1.2-1.5 g/kg ) Fluid: 3886-5351 mL or per MD order. Nutrition Intervention Change Diet Order: Continue current diet unless FLIGHT ATTENDANT recommends something else. Add Supplement/Snack (indicate name/kcal Nepro BID /protein ) Provides kCal: 950 Provides Protein (gm) 40 Teaching Recipient Patient Learning Readiness Fair Teaching Methods Discussion,Handout Response to Teaching Verbalize understanding Education Handouts Provided General Healthful Nutrition Tips. Barriers to Learning Auditory RD phone number provided Yes Patient aware of follow up options Yes Goal #1 Meet at least 75% of estimated energy and protein needs. Goal #2 ONS tolerance. Anticipated Discharge Needs: Unable to determine at this time. Follow-Up By: 07/11/20 Additional Comments FU for FLIGHT ATTENDANT recommendations, intakes, and ONS tolerance.
[2020-07-08 08:40] LABS: Hematocrit 26.4 % (35.5-45.6); Hemoglobin 8.8 gm/dl (11.8-15.2); Mean Corpuscular HGB Conc 33 % (32-34); Mean Corpuscular Volume 85 fl (84-94); Platelet Count 492 K/mm3 (140-440); Red Blood Count 3.08 M/mm3 (3.65-5.03); Red Cell Distribution Width 19.9 % (13.2-15.2)
[2020-07-08 08:46] LABS: Calcium 7.1 mg/dL (8.4-10.2)
[2020-07-08] MEDS: INSULIN LISPRO 100 UNIT/ML SUB-Q SCH ×4 (09:31→23:15)
--- NOTE | 2020-07-08 09:43 | Progress Note ---
Assessment and Plan - Patient Problems (1) FRED (acute kidney injury) Current Visit: Yes Status: Acute Plan to address problem: Prerenal azotemia versus acute tubular necrosis secondary to volume depletion/sepsis. Kidney function is improving with gentle volume repletion and antibiotics. Continue current treatment and follow-up electrolytes and renal function (2) Hypokalemia Current Visit: Yes Status: Acute Plan to address problem: Supplement potassium and follow-up lites. Check magnesium level (3) Anemia Current Visit: Yes Status: Acute Plan to address problem: Follow-up hemoglobin (4) Complicated urinary tract infection Current Visit: Yes Status: Acute Plan to address problem: Patient with nonobstructive left kidney stone. Urinary tract infection. Continue antibiotics. (5) Metabolic acidosis Current Visit: Yes Status: Acute Plan to address problem: Uremic acidosis plus non-anion gap metabolic acidosis secondary to diarrhea. Improving Subjective Date of service: 07/08/20 Principal diagnosis: Sepsis, AF with RVR Interval history: Patient seen lying in bed. He has no complaints. No nausea or vomiting Objective - Exam Narrative Exam: Frail elderly -[place] male lying in bed in no acute distress HEENT: NCAT, jaw tremors Neck: Supple, no venous distention CVS: S1S2 RRR with no murmur, rub or gallop Chest: Clear to auscultation Abdomen: Protuberant, soft, nontender, no organomegaly, bowel sounds are present Extremities: No edema Neuro: Awake, contractures - Vital Signs Vital signs: Vital Signs - 12hr 07/07/20 07/08/20 22:24 04:18 Temperature 97.8 F 98.1 F Pulse Rate 100 H 61 Respiratory 18 18 Rate Blood Pressure 105/65 114/76 O2 Sat by Pulse 100 98 Oximetry - Lab 07/08/20 08:04 07/08/20 08:04 Most recent lab results Calcium 7.1 mg/dL (8.4-10.2) L 07/08/20 08:04 Phosphorus 5.90 mg/dL (2.5-4.5) H 07/02/20 13:44 Magnesium 1.60 mg/dL (1.7-2.3) L 07/08/20 08:04 Urine Creatinine 85.5 mg/dL (0.1-20.0) H 07/02/20 13:27 Urine Sodium 37 mmol/L 07/02/20 13:27 Medications & Allergies - Medications Allergies/Adverse Reactions: Allergies No Known Allergies Allergy (Verified 07/01/20 23:23) Home Medications: Home Medications Medication Instructions Recorded Confirmed Last Taken Type Acetaminophen [Aphen] 325 mg PO PRN PRN 07/02/20 07/02/20 Unknown History Amlodipine Besylate [Norvasc] 10 mg PO DAILY 07/02/20 07/02/20 Unknown History Ascorbic Acid/Ascorbate Sodium 500 mg PO DAILY 07/02/20 07/02/20 Unknown History [Vit C-Alyce Hips 500 mg Chew Tb] Aspirin [Adult Aspirin] 81 mg PO DAILY 07/02/20 07/02/20 Unknown History AtorvaSTATin [Lipitor] 10 mg PO QHS 07/02/20 07/02/20 Unknown History Ciprofloxacin HCl 500 mg PO Q8HR 07/02/20 07/02/20 Unknown History Diclofenac 1% [Diclofenac 1% 1 applic TP Q6HR 07/02/20 07/02/20 Unknown History topical gel] Epoetin Baljeet [Procrit] 3,000 unit SQ QWEEK 07/02/20 07/02/20 Unknown History Heparin Sodium,Porcine [Heparin 5,000 unit SUB-Q Q8HR 07/02/20 07/02/20 Unknown History Sodium] Ipratropium/Albuterol Sulfate 1 ampul IH Q6HR 07/02/20 07/02/20 Unknown History [DUONEB *Not for PRN Use*] Lispro Insulin [HumaLOG] 0 unit SQ ACHS 07/02/20 07/02/20 Unknown History Multivit-Minerals/Folic Acid 1 tab PO DAILY 07/02/20 07/02/20 Unknown History [Adult One Daily Multivit Tab] PANTOPRAZOLE SODIUM (nf) [Protonix 40 mg PO QAM 07/02/20 07/02/20 Unknown History GRANULES] Zinc Sulfate 220 mg PO DAILY 07/02/20 07/02/20 Unknown History allopurinoL [Zyloprim] 100 mg PO QDAY 07/02/20 07/02/20 Unknown History hydrALAZINE [Apresoline TAB] 100 mg PO TID 07/02/20 07/02/20 Unknown History Active Medications: Generic Name Dose Route Start Last Admin Trade Name Freq PRN Reason Stop Dose Admin Atorvastatin Calcium 10 mg 07/04/20 22:00 07/07/20 22:06 Atorvastatin 10 Mg Tab PO 10 mg QHS HARLEY Administration Famotidine 20 mg 07/02/20 22:00 07/07/20 22:06 Famotidine 20 Mg Tab PO 20 mg QHS HARLEY Administration Heparin Sodium (Porcine) 5,000 unit 07/02/20 06:00 07/08/20 05:03 Heparin 5,000 Unit/1 Ml Vial SUB-Q 5,000 unit Q8HR HARLEY Administration Metronidazole 500 mg in 100 mls @ 100 mls/hr 07/04/20 22:00 07/08/20 05:02 Flagyl 500 Mg/100 Ml IV 100 mls/hr Q8HR HARLEY Administration Protocol Insulin Human Lispro 0 unit 07/06/20 16:30 07/08/20 09:31 Insulin Lispro 100 Unit/Ml SUB-Q Not Given ACHS [facility] Protocol Magnesium Hydroxide 30 ml 07/02/20 01:22 Magnesium Hydroxide (Mom) Oral Liqd Udc PO Q4H PRN Constipation Metoprolol Tartrate 6.25 mg 07/05/20 22:00 07/07/20 22:26 Metoprolol Tartrate 25 Mg Tab PO Not Given BID HARLEY Morphine Sulfate 2 mg 07/02/20 01:22 Morphine 2 Mg/1 Ml Inj IV Q4H PRN Pain, Moderate (4-6) Ondansetron HCl 4 mg 07/02/20 01:22 Ondansetron 4 Mg/2 Ml Inj IV Q8H PRN Nausea And Vomiting Potassium Chloride 40 meq 07/05/20 10:00 07/07/20 09:03 Potassium Chloride Er 20 Meq Tab PO 40 meq QDAY [facility]LEY Administration Sodium Bicarbonate 650 mg 07/07/20 14:00 07/07/20 22:06 Sodium Bicarbonate 650 Mg Tab PO 650 mg TID HARLEY Administration Sodium Chloride 10 ml 07/02/20 10:00 07/07/20 22:07 Sodium Chloride 0.9% 10 Ml Flush Syringe IV 10 ml BID HARLEY Administration Sodium Chloride 10 ml 07/02/20 01:22 Sodium Chloride 0.9% 10 Ml Flush Syringe IV PRN PRN LINE FLUSH Vancomycin HCl 500 mg 07/04/20 14:00 07/08/20 02:22 Vancomycin 250 Mg/10 Ml Oral Liqd PO 500 mg Q6H [facility]LEY Administration Protocol
[2020-07-08] MEDS: POTASSIUM CHLORIDE ER 20 MEQ TAB PO SCH (10:06)
[2020-07-08] MEDS: SODIUM BICARBONATE 650 MG TAB PO SCH ×3 (10:07→19:45)
[2020-07-08] MEDS: POTASSIUM CHLORIDE 20 MEQ PACKET PO SCH (10:21)
[2020-07-08] MEDS: METOPROLOL TARTRATE 25 MG TAB PO SCH ×2 (10:22→17:41)
[2020-07-08 10:24] LABS: Total Cells Counted 100
[2020-07-08 10:25] LABS: Anisocytosis 1+; Hypochromasia 1+; Platelet Clumps Rare; Platelet Estimate Appears Decreased
--- NOTE | 2020-07-08 11:27 | Progress Note ---
Assessment and Plan Cultures: Blood culture 07/02/2020 no growth today C. difficile PCR positive Urine culture with mixed flavio Assessment: 70-year-old male with history of paraplegia, dementia, chronic sacral decubitus ulcer, peripheral vascular disease, CHF, hypertension, vertebral sacral osteomyelitis admitted on 07/02/2020 secondary to abnormal labs at the skilled nursing. WBC was found to be 43.2, afebrile today patient stools: #Severe sepsis: Leukocytosis better 49K-->57-->48-->42K--->28K, likely secondary to C. difficile colitis. #Colitis: CT shows chronic colitis. Patient with large liquid bowel movements in route to the hospital x 4. Suspect C. difficile colitis #Complicated UTI: CT shows left kidney stone nonobstructive. Completed 3 days of cefepime #FRED: Likely due to sepsis/dehydration. Better. #Sacral decubitus: Not Infected, needs wound care evaluation. Apparently recently treated. Recommendations: -Continue oral vancomycin 500 mg p.o. 4 times daily D7 -Continue metronidazole 500 g IV every 8 hours D7 -Sacral offloading -Follow-up blood cultures -Monitor leukocytosis which is improved -Check KUB -If continue to improve will stop IV flagyl and decrease po vanco to 250 mg QID -remove brown if not needed Will follow. Joaquín Corey MD [facility] ([facility] O: [phone] F: [phone] Subjective Date of service: 07/08/20 Principal diagnosis: Sepsis, AF with RVR Interval history: Afebrile, white count mildly improved now 17.1 Objective - Exam Narrative Exam: General appearance: Alert in NAD ED Eyes: anicteric sclerae, moist conjunctivae; no lid-lag; HENT: Normocephalic, Atraumatic; normal external ears, nares open, oropharynx limited, partially edentulous Neck: supple, tracheal midline, no JVD Lungs: CTA, with normal respiratory effort and no intercostal retractions CV: RRR no murmur Abdomen: Soft, non-tender Extremities: no edema, no cyanosis Skin: Sacral area not examined Psych: no agitated Neuro: alert follows simple commands - Constitutional Vitals: Vital Signs Temp Pulse Resp BP Pulse Ox 99.0 F 64 18 101/55 96 07/08/20 10:10 07/08/20 10:22 07/08/20 10:10 07/08/20 10:22 07/08/20 10:10 Temperature -Last 24 Hours Temperature 99.0 F Temperature 98.1 F Temperature 97.8 F Temperature 98.2 F Temperature 97.9 F - Labs CBC & Chem 7: 07/08/20 08:04 07/08/20 08:04 Labs: Abnormal lab results 07/07/20 07/07/20 07/07/20 Range/Units 11:22 16:37 22:25 WBC (4.5-11.0) K/mm3 RBC (3.65-5.03) M/mm3 Hgb (11.8-15.2) gm/dl Hct (35.5-45.6) % RDW (13.2-15.2) % Plt Count (140-440) K/mm3 Seg Neuts % (Manual) (40.0-70.0) % Lymphocytes % (Manual) (13.4-35.0) % Seg Neutrophils # Man (1.8-7.7) K/mm3 Lymphocytes # (Manual) (1.2-5.4) K/mm3 Potassium (3.6-5.0) mmol/L Chloride (98-107) mmol/L Carbon Dioxide (22-30) mmol/L BUN (9-20) mg/dL Creatinine (0.8-1.3) mg/dL POC Glucose 183 H 169 H 122 H (70-105) mg/dL Calcium (8.4-10.2) mg/dL Magnesium (1.7-2.3) mg/dL 07/08/20 07/08/20 Range/Units 08:04 08:04 WBC 17.1 H (4.5-11.0) K/mm3 RBC 3.08 L (3.65-5.03) M/mm3 Hgb 8.8 L (11.8-15.2) gm/dl Hct 26.4 L (35.5-45.6) % RDW 19.9 H (13.2-15.2) % Plt Count 492 H (140-440) K/mm3 Seg Neuts % (Manual) 92.0 H (40.0-70.0) % Lymphocytes % (Manual) 3.0 L (13.4-35.0) % Seg Neutrophils # Man 15.7 H (1.8-7.7) K/mm3 Lymphocytes # (Manual) 0.5 L (1.2-5.4) K/mm3 Potassium 3.4 L (3.6-5.0) mmol/L Chloride 115.1 H (98-107) mmol/L Carbon Dioxide 20 L (22-30) mmol/L BUN 53 H (9-20) mg/dL Creatinine 2.4 H (0.8-1.3) mg/dL POC Glucose (70-105) mg/dL Calcium 7.1 L (8.4-10.2) mg/dL Magnesium 1.60 L (1.7-2.3) mg/dL
--- NOTE | 2020-07-08 16:33 | Progress Note ---
Assessment and Plan Telemetry reviewed: A. fib 110s to 120s. No events #Elevated troponin * 12-lead reviewed: A. fib 105, no ST segment elevation. Troponin elevated x1, repeat troponin is mildly elevated nonspecific and subacute x2, trending downward. Continue to trend CE's. * Echocardiogram reviewed (07/02/2020): LVEF is 55 to 60%. Mild diastolic dysfunction is present (impaired relaxation pattern). No VSD visualized. RV SF is normal. RVSP is 44 mmHg. Mild pulmonary hypertension. #Atrial fibrillation with RVR * Patient has been noted to be severely anemic. Most recent lab work shows hemoglobin trending upwards currently 9.7. Recommend initiation of anticoagulant for atrial fibrillation. We will discuss with hospitalist Dr. Johnson. * Optimize rate control: Increase metoprolol to 6.25 mg every 6 hours. #Hypokalemia in the setting of acute on chronic renal disease * Potassium is being repleted. Nephrology is following #Sepsis secondary to UTI suspected, colitis * Management per primary team, ID is following #DVT Prophylaxis * SCDs ordered. Heparin SQ We will follow This patient was seen in conjunction with Dr. Gonzalez who agrees with this assessment and plan of care Subjective Date of service: 07/08/20 Principal diagnosis: Sepsis, AF with RVR Interval history: Patient resting in bed. Confused at baseline, no apparent distress. Telemetry reviewed: Atrial fib 110s to 120s. No events Objective Last Vital Signs Temp 99.0 F 07/08/20 10:10 Pulse 64 07/08/20 10:22 Resp 18 07/08/20 10:10 BP 101/55 07/08/20 10:22 Pulse Ox 96 07/08/20 10:10 - Physical Examination General: No Apparent Distress HEENT: Positive: Normocephaly, Mucus Membranes Moist Neck: Positive: neck supple, trachea midline. Negative: JVD/HJR Cardiac: Positive: irregularly irregular Lungs: Positive: Normal Exam, Normal Breath Sounds Neuro: Positive: Grossly Intact Abdomen: Positive: Soft Skin: Positive: Wound. Negative: Rash Extremities: Present: upper extr. pulses, lower extr. pulses, edema (Bilateral lower limb edema, SCDs in place), +1 Edema - Labs and Meds CBC 07/08/20 Range/Units 08:04 WBC 17.1 H (4.5-11.0) K/mm3 RBC 3.08 L (3.65-5.03) M/mm3 Hgb 8.8 L (11.8-15.2) gm/dl Hct 26.4 L (35.5-45.6) % Plt Count 492 H (140-440) K/mm3 Comprehensive Metabolic Panel 07/08/20 Range/Units 08:04 Sodium 145 (137-145) mmol/L Potassium 3.4 L (3.6-5.0) mmol/L Chloride 115.1 H (98-107) mmol/L Carbon Dioxide 20 L (22-30) mmol/L BUN 53 H (9-20) mg/dL Creatinine 2.4 H (0.8-1.3) mg/dL Glucose 94 (75-100) mg/dL Calcium 7.1 L (8.4-10.2) mg/dL - Imaging and Cardiology EKG: report reviewed, image reviewed Echo: report reviewed (07/02/2020 - EF 50-55%, grade 1 diastolic dysfxn, mild MR, mild pulm HTN) - Telemetry EKG Rhythm: Atrial Fibrillation Repolarization changes or abnormalities: nonspecific abnormality, ST segment, and/or T wave, Q-T interval prolongation - Allied health notes Allied health notes reviewed: nursing
[2020-07-08] MEDS ORDERED: MAGNESIUM SULFATE 2 GM/50 ML BAG IV ONE (17:22)
--- NOTE | 2020-07-08 17:27 | Progress Note ---
Assessment and Plan 70-year-old -[place] male resident of [place] with known history of paraplegia, dementia, sacral decubitus ulcer, peripheral vascular disease, diastolic heart failure, anemia, hypertension and osteomyelitis of the sacral vertebral region presenting in the emergency room with abnormal labs from the correction. Patient was noted to have had leukocytosis of 43.2. En route to the hospital by EMS patient was said to be hypotensive and received 1.5 L of normal saline. Upon arrival in the emergency room patient received further boluses of IV fluid with some improvement in his blood pressure. During the course of his stay in the emergency room, patient had 4 large loose stools. Work-up in the emergency room reveals leukocytosis of 47.5, hemoglobin of 8.5, CO2 of 10, troponin of 0.149, BUN of 51 and creatinine of 3.1. Urinalysis was significant for UTI. CT of the abdomen and pelvis reveals chronic colitis greater distally, mild ascites, pleural fluid and soft tissue anasarca. Calcified gallstone, 7 mm nonobstructive left renal stone. Sacral decubitus ulcer with suspected underlying osteomyelitis. Patient is being admitted with septic shock, acute renal failure, UTI and colitis. Septic patient being treated with antibiotics including Metronidazole, Vancomycin. Also on s/c heparin, famotidine. Patient awake but weak. He is resting on room air. O2 saturation 94%. Patient afebrile, however still has leukocytosis. Chest x-ray on 07/01/20 shows Moderate pleural parenchymal opacification in the right lung base likely represents pleural effusion and associated compressive atelectasis. Clinical correlation rule out a superimposed infectious process is recommended. CT Chest on 07/01/20 shows Small bilateral effusions right greater than left. No pneumothorax. Moderate volume loss/atelectasis right chest. Medications include the above antibiotics and famotidine, and s/c heparin. - Patient Problems (1) Septic shock Current Visit: Yes Status: Acute Plan to address problem: Patient is on Metronidazole, and Vancomycin. (2) FRED (acute kidney injury) Current Visit: Yes Status: Acute Plan to address problem: Management as per nephrology. (3) C. difficile colitis Current Visit: Yes Status: Acute Plan to address problem: Patient is on Metronidazole, and Vancomycin. ID is following. (4) Sacral osteomyelitis Current Visit: Yes Status: Acute Plan to address problem: Management as per ID. Wound care management. Subjective Date of service: 07/08/20 Principal diagnosis: Sepsis, AF with RVR Interval history: 70-year-old -[place] male resident of correction with known history of paraplegia, dementia, sacral decubitus ulcer, peripheral vascular disease, diastolic heart failure, anemia, hypertension and osteomyelitis of the sacral vertebral region presenting in the emergency room with abnormal labs from the correction. Patient was noted to have had leukocytosis of 43.2. En route to the hospital by EMS patient was said to be hypotensive and received 1.5 L of normal saline. Upon arrival in the emergency room patient received further boluses of IV fluid with some improvement in his blood pressure. During the course of his stay in the emergency room, patient had 4 large loose stools. Work-up in the emergency room reveals leukocytosis of 47.5, hemoglobin of 8.5, CO2 of 10, troponin of 0.149, BUN of 51 and creatinine of 3.1. Urinalysis was significant for UTI. CT of the abdomen and pelvis reveals chronic colitis greater distally, mild ascites, pleural fluid and soft tissue anasarca. Calcified gallstone, 7 mm nonobstructive left renal stone. Sacral decubitus ulcer with suspected un derlying osteomyelitis. Patient is being admitted with septic shock, acute renal failure, UTI and c olitis. Septic patient being treated with antibiotics including Cefepime, Metronidazole, and Vancomycin. Patient awake but weak. He is resting on room air. O2 saturation 94%. Patient afebrile, however still has leukocytosis. Chest x-ray on 07/01/20 shows Moderate pleural parenchymal opacification in the right lung base likely represents pleural effusion and associated compressive atelectasis. Clinical correlation rule out a superimposed infectious process is recommended. CT Chest on 07/01/20 shows Small bilateral effusions right greater than left. No pneumothorax. Moderate volume loss/atelectasis right chest. Medications include the above antibiotics and famotidine, and s/c heparin. Objective Vital Signs - 12hr 07/08/20 07/08/20 07/08/20 04:18 10:10 10:22 Temperature 98.1 F 99.0 F Pulse Rate 61 64 64 Respiratory 18 18 Rate Blood Pressure 114/76 101/55 101/55 O2 Sat by Pulse 98 96 Oximetry Constitutional: no acute distress, alert, other (elderly and chronically ill looking male) Eyes: non-icteric ENT: oropharynx moist Neck: supple, no JVD Effort: normal Ascultation: Bilateral: diminished breath sounds, rhonchi Percussion: Bilateral: not dull Cardiovascular: regular rate and rhythm Gastrointestinal: normoactive bowel sounds, soft, non-tender, non-distended Integumentary: normal Extremities: no cyanosis Neurologic: pupils equal and round, CN II-XII normal, other (paraplegic) Psychiatric: mood appropriate, affect normal CBC and BMP: 07/08/20 08:04 07/08/20 08:04 ABG, PT/INR, D-dimer: PT/INR, D-dimer PT 17.5 Sec. (12.2-14.9) H 07/03/20 05:03 INR 1.45 (0.87-1.13) H 07/03/20 05:03 Abnormal lab findings: Abnormal Labs 07/01/20 07/01/20 07/01/20 21:00 21:00 23:17 WBC 47.5 H* RBC 3.05 L Hgb 8.5 L Hct 28.3 L MCH MCHC 30 L RDW 19.7 H Plt Count Seg Neuts % (Manual) 90.0 H Lymphocytes % (Manual) 6.0 L Seg Neutrophils # Man 42.8 H Lymphocytes # (Manual) Monocytes # (Manual) 1.9 H Eosinophils # (Manual) PT INR Sodium 135 L Potassium Chloride 109.5 H Carbon Dioxide 10 L BUN 51 H Creatinine 3.1 H Glucose 114 H POC Glucose Calcium 7.3 L Phosphorus Magnesium Troponin T 0.149 H* Total Protein 5.6 L Albumin 1.8 L LDL Cholesterol Direct 19 L HDL Cholesterol 37 L Urine WBC (Auto) > 182.0 H Urine Creatinine 07/02/20 07/02/20 07/03/20 13:27 13:44 05:03 WBC 59.5 H* RBC 3.03 L Hgb 8.3 L Hct 26.5 L MCH 27 L MCHC 31 L RDW 19.6 H Plt Count 538 H Seg Neuts % (Manual) 89.0 H Lymphocytes % (Manual) 2.0 L Seg Neutrophils # Man 53.0 H Lymphocytes # (Manual) Monocytes # (Manual) Eosinophils # (Manual) PT INR Sodium Potassium Chloride Carbon Dioxide BUN Creatinine Glucose POC Glucose Calcium Phosphorus 5.90 H Magnesium 1.50 L Troponin T Total Protein Albumin LDL Cholesterol Direct HDL Cholesterol Urine WBC (Auto) Urine Creatinine 85.5 H 07/03/20 07/03/20 07/04/20 05:03 05:03 04:58 WBC 48.7 H* RBC 3.05 L Hgb 8.6 L Hct 27.1 L MCH MCHC RDW 19.5 H Plt Count Seg Neuts % (Manual) 92.5 H Lymphocytes % (Manual) 2.0 L Seg Neutrophils # Man 45.0 H Lymphocytes # (Manual) 1.0 L Monocytes # (Manual) Eosinophils # (Manual) PT 17.5 H INR 1.45 H Sodium Potassium 3.3 L Chloride 115.5 H Carbon Dioxide 9 L* BUN 52 H Creatinine 3.2 H Glucose 120 H POC Glucose Calcium 7.2 L Phosphorus Magnesium Troponin T 0.089 H D Total Protein Albumin LDL Cholesterol Direct HDL Cholesterol Urine WBC (Auto) Urine Creatinine 07/04/20 07/04/20 07/04/20 04:58 11:38 16:16 WBC RBC Hgb Hct MCH MCHC RDW Plt Count Seg Neuts % (Manual) Lymphocytes % (Manual) Seg Neutrophils # Man Lymphocytes # (Manual) Monocytes # (Manual) Eosinophils # (Manual) PT INR Sodium Potassium Chloride 117.2 H Carbon Dioxide 9 L* BUN 57 H Creatinine 3.5 H Glucose 138 H POC Glucose 159 H 150 H Calcium 7.8 L Phosphorus Magnesium Troponin T 0.074 H Total Protein Albumin LDL Cholesterol Direct HDL Cholesterol Urine WBC (Auto) Urine Creatinine 07/04/20 07/05/20 07/05/20 21:56 05:59 07:24 WBC RBC Hgb Hct MCH MCHC RDW Plt Count Seg Neuts % (Manual) Lymphocytes % (Manual) Seg Neutrophils # Man Lymphocytes # (Manual) Monocytes # (Manual) Eosinophils # (Manual) PT INR Sodium Potassium 3.2 L Chloride 116.0 H Carbon Dioxide 14 L BUN 60 H Creatinine 3.7 H Glucose 133 H POC Glucose 165 H 111 H Calcium 7.7 L Phosphorus Magnesium Troponin T Total Protein Albumin LDL Cholesterol Direct HDL Cholesterol Urine WBC (Auto) Urine Creatinine 07/05/20 07/05/20 07/05/20 07:51 11:05 11:06 WBC 42.3 H* RBC 3.13 L Hgb 8.8 L Hct 27.1 L MCH MCHC RDW 19.6 H Plt Count 544 H Seg Neuts % (Manual) 94.5 H Lymphocytes % (Manual) 0.5 L Seg Neutrophils # Man 40.0 H Lymphocytes # (Manual) 0.2 L Monocytes # (Manual) Eosinophils # (Manual) 1.1 H PT INR Sodium Potassium Chloride Carbon Dioxide BUN Creatinine Glucose POC Glucose 116 H 135 H Calcium Phosphorus Magnesium Troponin T Total Protein Albumin LDL Cholesterol Direct HDL Cholesterol Urine WBC (Auto) Urine Creatinine 07/05/20 07/05/20 07/06/20 15:37 21:40 07:05 WBC 31.3 H RBC 3.41 L Hgb 9.3 L Hct 29.0 L MCH 27 L MCHC RDW 20.0 H Plt Count 550 H Seg Neuts % (Manual) 93.5 H Lymphocytes % (Manual) 4.0 L Seg Neutrophils # Man 29.3 H Lymphocytes # (Manual) Monocytes # (Manual) Eosinophils # (Manual) PT INR Sodium Potassium Chloride Carbon Dioxide BUN Creatinine Glucose POC Glucose 146 H 184 H Calcium Phosphorus Magnesium Troponin T Total Protein Albumin LDL Cholesterol Direct HDL Cholesterol Urine WBC (Auto) Urine Creatinine 07/06/20 07/06/20 07/06/20 07:05 08:00 11:30 WBC RBC Hgb Hct MCH MCHC RDW Plt Count Seg Neuts % (Manual) Lymphocytes % (Manual) Seg Neutrophils # Man Lymphocytes # (Manual) Monocytes # (Manual) Eosinophils # (Manual) PT INR Sodium Potassium 3.2 L Chloride 115.2 H Carbon Dioxide 15 L BUN 58 H Creatinine 3.2 H Glucose 137 H POC Glucose 128 H 188 H Calcium 7.3 L Phosphorus Magnesium Troponin T 0.115 H* D Total Protein Albumin LDL Cholesterol Direct HDL Cholesterol Urine WBC (Auto) Urine Creatinine 07/06/20 07/06/20 07/07/20 16:09 22:11 07:48 WBC RBC Hgb Hct MCH MCHC RDW Plt Count Seg Neuts % (Manual) Lymphocytes % (Manual) Seg Neutrophils # Man Lymphocytes # (Manual) Monocytes # (Manual) Eosinophils # (Manual) PT INR Sodium Potassium Chloride Carbon Dioxide BUN Creatinine Glucose POC Glucose 153 H 198 H 115 H Calcium Phosphorus Magnesium Troponin T Total Protein Albumin LDL Cholesterol Direct HDL Cholesterol Urine WBC (Auto) Urine Creatinine 07/07/20 07/07/20 07/07/20 08:23 08:23 11:22 WBC 18.3 H RBC 3.44 L Hgb 9.7 L Hct 29.7 L MCH MCHC RDW 19.7 H Plt Count 528 H Seg Neuts % (Manual) Lymphocytes % (Manual) 6.0 L Seg Neutrophils # Man 16.8 H Lymphocytes # (Manual) 1.1 L Monocytes # (Manual) Eosinophils # (Manual) PT INR Sodium Potassium 3.3 L Chloride 113.7 H Carbon Dioxide 17 L BUN 55 H Creatinine 2.7 H Glucose 117 H POC Glucose 183 H Calcium 7.3 L Phosphorus Magnesium Troponin T Total Protein Albumin LDL Cholesterol Direct HDL Cholesterol Urine WBC (Auto) Urine Creatinine 07/07/20 07/07/20 07/08/20 16:37 22:25 08:04 WBC 17.1 H RBC 3.08 L Hgb 8.8 L Hct 26.4 L MCH MCHC RDW 19.9 H Plt Count 492 H Seg Neuts % (Manual) 92.0 H Lymphocytes % (Manual) 3.0 L Seg Neutrophils # Man 15.7 H Lymphocytes # (Manual) 0.5 L Monocytes # (Manual) Eosinophils # (Manual) PT INR Sodium Potassium Chloride Carbon Dioxide BUN Creatinine Glucose POC Glucose 169 H 122 H Calcium Phosphorus Magnesium Troponin T Total Protein Albumin LDL Cholesterol Direct HDL Cholesterol Urine WBC (Auto) Urine Creatinine 07/08/20 07/08/20 08:04 11:44 WBC RBC Hgb Hct MCH MCHC RDW Plt Count Seg Neuts % (Manual) Lymphocytes % (Manual) Seg Neutrophils # Man Lymphocytes # (Manual) Monocytes # (Manual) Eosinophils # (Manual) PT INR Sodium Potassium 3.4 L Chloride 115.1 H Carbon Dioxide 20 L BUN 53 H Creatinine 2.4 H Glucose POC Glucose 123 H Calcium 7.1 L Phosphorus Magnesium 1.60 L Troponin T Total Protein Albumin LDL Cholesterol Direct HDL Cholesterol Urine WBC (Auto) Urine Creatinine Allied health notes reviewed: nursing
--- NOTE | 2020-07-08 21:09 | Progress Note ---
Assessment and Plan Unable to tolerate Lopressor at this time due to hypotension. May consider PO Amio if needed; however, rate is currently acceptable. F/u ECG in AM for eval of QTc. K repletion underway. F/u BMP & Mg in AM. No anticoagulation for AF in the setting of anemia and bleeding risk. Pt seen in conjunction with Dr. Velasco, who agrees with the assessment and plan of care. - Patient Problems (1) Sepsis Current Visit: Yes Status: Acute (2) Sacral ulcer Current Visit: Yes Status: Acute (3) Complicated urinary tract infection Current Visit: Yes Status: Acute (4) Colitis Current Visit: Yes Status: Acute (5) FRED (acute kidney injury) Current Visit: Yes Status: Acute (6) Anemia Current Visit: Yes Status: Acute (7) Atrial fibrillation with RVR Current Visit: Yes Status: Acute (8) NSTEMI (non-ST elevated myocardial infarction) Current Visit: Yes Status: Acute Plan to address problem: Type 2 (9) HLD (hyperlipidemia) Current Visit: Yes Status: Chronic Qualifiers: Hyperlipidemia type: mixed hyperlipidemia Qualified Code(s): E78.2 - Mixed hyperlipidemia (10) H/O: HTN (hypertension) Current Visit: Yes Status: Chronic Subjective Date of service: 07/07/20 Principal diagnosis: Sepsis, AF with RVR Interval history: Weaned off Midodrine, but remains hypotensive. Tele reviewed - AF 90-110s. Objective Last Vital Signs Temp 98.2 F 07/07/20 18:01 Pulse 98 H 07/07/20 18:01 Resp 18 07/07/20 18:01 BP 104/57 07/07/20 18:01 Pulse Ox 98 07/07/20 18:01 - Physical Examination General: No Apparent Distress HEENT: Positive: Normocephaly, Mucus Membranes Moist Neck: Positive: neck supple, trachea midline. Negative: JVD/HJR Cardiac: Positive: irregularly irregular, S1/S2 Lungs: Positive: Decreased Breath Sounds Neuro: Positive: Grossly Intact Abdomen: Positive: Soft Skin: Positive: Wound. Negative: Rash Musculoskeletal: No Fluid Collection Extremities: Present: upper extr. pulses, lower extr. pulses. Absent: edema - Labs and Meds CBC 07/07/20 Range/Units 08:23 WBC 18.3 H (4.5-11.0) K/mm3 RBC 3.44 L (3.65-5.03) M/mm3 Hgb 9.7 L (11.8-15.2) gm/dl Hct 29.7 L (35.5-45.6) % Plt Count 528 H (140-440) K/mm3 Comprehensive Metabolic Panel 07/07/20 Range/Units 08:23 Sodium 144 (137-145) mmol/L Potassium 3.3 L (3.6-5.0) mmol/L Chloride 113.7 H (98-107) mmol/L Carbon Dioxide 17 L (22-30) mmol/L BUN 55 H (9-20) mg/dL Creatinine 2.7 H (0.8-1.3) mg/dL Glucose 117 H (75-100) mg/dL Calcium 7.3 L (8.4-10.2) mg/dL - Imaging and Cardiology EKG: report reviewed, image reviewed Echo: report reviewed (07/02/2020 - EF 50-55%, grade 1 diastolic dysfxn, mild MR, mild pulm HTN) - Telemetry EKG Rhythm: Atrial Fibrillation - EKG Supraventricular dysrhythmia: atrial fibrillation Repolarization changes or abnormalities: nonspecific abnormality, ST segment, and/or T wave, Q-T interval prolongation - Allied health notes Allied health notes reviewed: nursing
[2020-07-08] MEDS: FAMOTIDINE 20 MG TAB PO SCH (22:31)
[2020-07-09] MEDS: METOPROLOL TARTRATE 25 MG TAB PO SCH ×2 (00:09→05:08)
[2020-07-09] MEDS: VANCOMYCIN 250 MG/10 ML ORAL LIQD PO SCH ×3 (01:32→14:06)
[2020-07-09] MEDS: metroNIDAZOLE/NS 500 MG/100 ML 500 MG/100 ML BAG IV SCH (05:07)
[2020-07-09] MEDS: HEPARIN 5,000 UNIT/1 ML VIAL SUB-Q SCH (05:09)
[2020-07-09 08:10] LABS: Basophils # (Auto) 0.2 K/mm3 (0.0-0.1); Basophils % (Auto) 0.9 % (0.0-1.8); Eosinophils # (Auto) 0.5 K/mm3 (0.0-0.4); Eosinophils % (Auto) 2.8 % (0.0-4.3); Hematocrit 31.5 % (35.5-45.6); Hemoglobin 9.7 gm/dl (11.8-15.2); Lymphocytes # (Auto) 2.6 K/mm3 (1.2-5.4); Lymphocytes % (Auto) 14.7 % (13.4-35.0); Mean Corpuscular HGB Conc 31 % (32-34); Mean Corpuscular Volume 90 fl (84-94); Monocytes # (Auto) 0.8 K/mm3 (0.0-0.8); Monocytes % (Auto) 4.4 % (0.0-7.3); Platelet Count 529 K/mm3 (140-440); Red Blood Count 3.51 M/mm3 (3.65-5.03)
[2020-07-09 08:14] LABS: Red Cell Distribution Width 20.2 % (13.2-15.2)
[2020-07-09] MEDS: INSULIN LISPRO 100 UNIT/ML SUB-Q SCH ×2 (09:50→12:40)
[2020-07-09] MEDS: SODIUM BICARBONATE 650 MG TAB PO SCH ×2 (09:52→13:59)
[2020-07-09] MEDS: POTASSIUM CHLORIDE 20 MEQ PACKET PO SCH (09:52)
[2020-07-09] MEDS ORDERED: APIXABAN 5 MG TAB PO SCH ×2 (10:00→10:09)
--- NOTE | 2020-07-09 10:06 | Progress Note ---
Assessment and Plan Telemetry reviewed: A. fib 110s to 120s. No events #NSTEMI suspect type II * 12-lead reviewed: A. fib 105, no ST segment elevation. Troponins are elevated, unchanging. Suspect NSTEMI type II. continue to trend CE's. * Echocardiogram reviewed (07/02/2020): LVEF is 55 to 60%. Mild diastolic dysfunction is present (impaired relaxation pattern). No VSD visualized. RV SF is normal. RVSP is 44 mmHg. Mild pulmonary hypertension. #Atrial fibrillation with RVR * Anticoagulation previously held for severe anemia. Hemoglobin has improved significantly to 9.7. Initiate Eliquis 2.5 mg p.o. twice daily, dose reduced due to renal dysfunction and weight * Optimize rate control: Increase metoprolol to 12.5 mg 3 times per day #Hypokalemia in the setting of acute on chronic renal disease * Volume and electrolytes are being managed by nephrology. #Sepsis secondary to UTI suspected, colitis * Management per primary team, ID is following #DVT Prophylaxis * SCDs in place. On Eliquis 2.5 mg twice daily Patient is currently in stable cardiac condition. Patient may discharge home to alf facility from cardiology standpoint. Will follow on as-needed basis This patient was seen in conjunction with Dr. Gonzalez who agrees with this assessment and plan of care Subjective Date of service: 07/09/20 Principal diagnosis: Sepsis, AF with RVR Interval history: Patient is resting comfortably in bed. No shortness of breath or chest pain overnight. Telemetry reviewed: Atrial fibrillation 100s-110s. No events Objective Last Vital Signs Temp 97.8 F 07/09/20 03:59 Pulse 82 07/09/20 05:08 Resp 16 07/09/20 03:59 BP 120/69 07/09/20 05:08 Pulse Ox 96 07/09/20 03:59 - Physical Examination General: No Apparent Distress HEENT: Positive: Normocephaly, Mucus Membranes Moist Neck: Positive: neck supple, trachea midline. Negative: JVD/HJR Cardiac: Positive: irregularly irregular, S1/S2 Lungs: Positive: Normal Exam Neuro: Positive: Grossly Intact Abdomen: Positive: Soft Skin: Positive: Wound. Negative: Rash Musculoskeletal: No Fluid Collection Extremities: Present: upper extr. pulses, lower extr. pulses, edema (Bilateral lower limb edema, SCDs in place), +1 Edema - Labs and Meds CBC 07/09/20 Range/Units 07:25 WBC 17.6 H (4.5-11.0) K/mm3 RBC 3.51 L (3.65-5.03) M/mm3 Hgb 9.7 L (11.8-15.2) gm/dl Hct 31.5 L (35.5-45.6) % Plt Count 529 H (140-440) K/mm3 Lymph # (Auto) 2.6 (1.2-5.4) K/mm3 [place] # (Auto) 0.8 (0.0-0.8) K/mm3 Eos # (Auto) 0.5 H (0.0-0.4) K/mm3 Baso # (Auto) 0.2 H (0.0-0.1) K/mm3 Comprehensive Metabolic Panel 07/09/20 Range/Units 07:25 Sodium 143 (137-145) mmol/L Potassium 3.8 (3.6-5.0) mmol/L Chloride 111.9 H (98-107) mmol/L Carbon Dioxide 19 L (22-30) mmol/L BUN 55 H (9-20) mg/dL Creatinine 2.5 H (0.8-1.3) mg/dL Glucose 99 (75-100) mg/dL Calcium 8.0 L (8.4-10.2) mg/dL - Imaging and Cardiology EKG: report reviewed, image reviewed Echo: report reviewed (07/02/2020 - EF 50-55%, grade 1 diastolic dysfxn, mild MR, mild pulm HTN) - Telemetry EKG Rhythm: Atrial Fibrillation Repolarization changes or abnormalities: nonspecific abnormality, ST segment, and/or T wave, Q-T interval prolongation - Allied health notes Allied health notes reviewed: nursing
[2020-07-09] MEDS ORDERED: APIXABAN 2.5 MG TAB PO SCH (10:15)
--- NOTE | 2020-07-09 10:32 | Progress Note ---
Assessment and Plan - Patient Problems (1) FRED (acute kidney injury) Current Visit: Yes Status: Acute Plan to address problem: Prerenal azotemia versus acute tubular necrosis secondary to volume depletion/sepsis. Kidney function improved with gentle volume repletion and antibiotics. Continue current treatment and follow-up electrolytes and renal fu nction. Okay to DC from Renal perspective. Follow up as out Patient (2) Hypokalemia Current Visit: Yes Status: Acute Plan to address problem: Potassium is replete and Mag normal. (3) Anemia Current Visit: Yes Status: Acute Plan to address problem: Follow-up hemoglobin (4) Complicated urinary tract infection Current Visit: Yes Status: Acute Plan to address problem: Patient with nonobstructive left kidney stone. Urinary tract infection. Continue antibiotics. (5) Metabolic acidosis Current Visit: Yes Status: Acute Plan to address problem: Uremic acidosis plus non-anion gap metabolic acidosis secondary to diarrhea. Improved Subjective Date of service: 07/09/20 Principal diagnosis: Sepsis, AF with RVR Interval history: Patient seen lying in bed. He has no complaints. No nausea or vomiting Objective - Exam Narrative Exam: Frail elderly -Israeli male lying in bed in no acute distress HEENT: NCAT, Neck: Supple, no venous distention CVS: S1S2 RRR with no murmur, rub or gallop Chest: Clear to auscultation Abdomen: Protuberant, soft, nontender, no organomegaly, bowel sounds are present Extremities: No edema, hyperpigmentation legs and feet Neuro: Awake, contractures - Vital Signs Vital signs: Vital Signs - 12hr 07/09/20 07/09/20 07/09/20 00:09 03:59 05:08 Temperature 97.8 F Pulse Rate 78 82 82 Respiratory 16 Rate Blood Pressure 117/69 120/69 120/69 O2 Sat by Pulse 96 Oximetry - Lab 07/09/20 07:25 07/09/20 07:25 Most recent lab results Calcium 8.0 mg/dL (8.4-10.2) L 07/09/20 07:25 Phosphorus 5.90 mg/dL (2.5-4.5) H 07/02/20 13:44 Magnesium 2.00 mg/dL (1.7-2.3) 07/09/20 07:25 Urine Creatinine 85.5 mg/dL (0.1-20.0) H 07/02/20 13:27 Urine Sodium 37 mmol/L 07/02/20 13:27 Medications & Allergies - Medications Allergies/Adverse Reactions: Allergies No Known Allergies Allergy (Verified 07/01/20 23:23) Home Medications: Home Medications Medication Instructions Recorded Confirmed Last Taken Type Acetaminophen [Aphen] 325 mg PO PRN PRN 07/02/20 07/02/20 Unknown History Amlodipine Besylate [Norvasc] 10 mg PO DAILY 07/02/20 07/02/20 Unknown History Ascorbic Acid/Ascorbate Sodium 500 mg PO DAILY 07/02/20 07/02/20 Unknown History [Vit C-Alyce Hips 500 mg Chew Tb] Aspirin [Adult Aspirin] 81 mg PO DAILY 07/02/20 07/02/20 Unknown History AtorvaSTATin [Lipitor] 10 mg PO QHS 07/02/20 07/02/20 Unknown History Ciprofloxacin HCl 500 mg PO Q8HR 07/02/20 07/02/20 Unknown History Diclofenac 1% [Diclofenac 1% 1 applic TP Q6HR 07/02/20 07/02/20 Unknown History topical gel] Epoetin Baljeet [Procrit] 3,000 unit SQ QWEEK 07/02/20 07/02/20 Unknown History Heparin Sodium,Porcine [Heparin 5,000 unit SUB-Q Q8HR 07/02/20 07/02/20 Unknown History Sodium] Ipratropium/Albuterol Sulfate 1 ampul IH Q6HR 07/02/20 07/02/20 Unknown History [DUONEB *Not for PRN Use*] Lispro Insulin [HumaLOG] 0 unit SQ ACHS 07/02/20 07/02/20 Unknown History Multivit-Minerals/Folic Acid 1 tab PO DAILY 07/02/20 07/02/20 Unknown History [Adult One Daily Multivit Tab] PANTOPRAZOLE SODIUM (nf) [Protonix 40 mg PO QAM 07/02/20 07/02/20 Unknown Hi story GRANULES] Zinc Sulfate 220 mg PO DAILY 07/02/20 07/02/20 Unknown History allopurinoL [Zyloprim] 100 mg PO QDAY 07/02/20 07/02/20 Unknown History hydrALAZINE [Apresoline TAB] 100 mg PO TID 07/02/20 07/02/20 Unknown History Active Medications: Generic Name Dose Route Start Last Admin Trade Name Freq PRN Reason Stop Dose Admin Apixaban 2.5 mg 07/09/20 10:15 Apixaban 2.5 Mg Tab PO BID REPLACED BY [facility] Atorvastatin Calcium 10 mg 07/04/20 22:00 07/08/20 22:31 Atorvastatin 10 Mg Tab PO 10 mg QHS HARLEY Administration Famotidine 20 mg 07/02/20 22:00 07/08/20 22:31 Famotidine 20 Mg Tab PO 20 mg QHS HARLEY Administration Metronidazole 500 mg in 100 mls @ 100 mls/hr 07/04/20 22:00 07/09/20 05:07 Flagyl 500 Mg/100 Ml IV 100 mls/hr Q8HR REPLACED BY [facility] Administration Protocol Insulin Human Lispro 0 unit 07/06/20 16:30 07/09/20 09:50 Insulin Lispro 100 Unit/Ml SUB-Q Not Given ACHS REPLACED BY [facility] Protocol Magnesium Hydroxide 30 ml 07/02/20 01:22 Magnesium Hydroxide (Mom) Oral Liqd Udc PO Q4H PRN Constipation Metoprolol Tartrate 12.5 mg 07/09/20 14:00 Metoprolol Tartrate 25 Mg Tab PO Q8HR REPLACED BY [facility] Morphine Sulfate 2 mg 07/02/20 01:22 Morphine 2 Mg/1 Ml Inj IV Q4H PRN Pain, Moderate (4-6) Ondansetron HCl 4 mg 07/02/20 01:22 Ondansetron 4 Mg/2 Ml Inj IV Q8H PRN Nausea And Vomiting Potassium Chloride 40 meq 07/08/20 10:00 07/09/20 09:52 Potassium Chloride 20 Meq Packet PO 40 meq QDAY HARLEY Administration Sodium Bicarbonate 650 mg 07/07/20 14:00 07/09/20 09:52 Sodium Bicarbonate 650 Mg Tab PO 650 mg TID REPLACED BY [facility] Administration Sodium Chloride 10 ml 07/02/20 10:00 07/09/20 09:52 Sodium Chloride 0.9% 10 Ml Flush Syringe IV 10 ml BID HARLEY Administration Sodium Chloride 10 ml 07/02/20 01:22 Sodium Chloride 0.9% 10 Ml Flush Syringe IV PRN PRN LINE FLUSH Vancomycin HCl 500 mg 07/04/20 14:00 07/09/20 10:00 Vancomycin 250 Mg/10 Ml Oral Liqd PO 500 mg Q6H REPLACED BY [facility] Administration Protocol
[2020-07-09 11:42] LABS: Mean Corpuscular HGB Conc 30 % (32-34); Mean Corpuscular Volume 87 fl (84-94); Platelet Count 579 K/mm3 (140-440); Red Blood Count 3.76 M/mm3 (3.65-5.03)
--- NOTE | 2020-07-09 11:44 | Progress Note ---
Assessment and Plan Cultures: Blood culture 07/02/2020 no growth today C. difficile PCR positive Urine culture with mixed flavio Assessment: 70-year-old male with history of paraplegia, dementia, chronic sacral decubitus ulcer, peripheral vascular disease, CHF, hypertension, vertebral sacral osteomyelitis admitted on 07/02/2020 secondary to abnormal labs at the [place] [facility]. WBC was found to be 43.2, afebrile today patient stools: #Severe sepsis: Leukocytosis better 49K-->57-->48-->42K--->28K, likely secondary to C. difficile colitis. #Colitis: CT shows chronic colitis. Patient with large liquid bowel movements in route to the hospital x 4. Suspect C. difficile colitis #Complicated UTI: CT shows left kidney stone nonobstructive. Completed 3 days of cefepime #FRED: Likely due to sepsis/dehydration. Better. #Sacral decubitus: Not Infected, needs wound care evaluation. Apparently recently treated. Recommendations: -Continue oral vancomycin 500 mg p.o. 4 times daily D8 -Continue metronidazole 500 g IV every 8 hours D8 -Sacral offloading -Monitor leukocytosis which is improved, though stable/elevated today -Check KUB -If continue to improve will stop IV flagyl and decrease po vanco to 250 mg QID -remove brown if not needed Will follow. Joaquín Corey MD [facility] O: [phone] F: [phone] Subjective Date of service: 07/09/20 Principal diagnosis: Sepsis, AF with RVR Interval history: Afebrile. White count stable/elevated. Objective - Exam Narrative Exam: General appearance: Alert in NAD ED Eyes: anicteric sclerae, moist conjunctivae; no lid-lag; HENT: Normocephalic, Atraumatic; normal external ears, nares open, oropharynx limited, partially edentulous Neck: supple, tracheal midline, no JVD Lungs: CTA, with normal respiratory effort and no intercostal retractions CV: RRR no murmur Abdomen: Soft, non-tender Extremities: no edema, no cyanosis Skin: Sacral area not examined Psych: no agitated Neuro: alert follows simple commands - Constitutional Vitals: Vital Signs Temp Pulse Resp BP Pulse Ox 97.8 F 82 16 120/69 96 07/09/20 03:59 07/09/20 05:08 07/09/20 03:59 07/09/20 05:08 07/09/20 03:59 Temperature -Last 24 Hours Temperature 97.8 F Temperature 97.5 F Temperature 98.2 F - Labs CBC & Chem 7: 07/09/20 07:25 07/09/20 10:50 Labs: Abnormal lab results 07/08/20 07/08/20 07/08/20 Range/Units 11:44 17:19 21:56 WBC (4.5-11.0) K/mm3 RBC (3.65-5.03) M/mm3 Hgb (11.8-15.2) gm/dl Hct (35.5-45.6) % MCHC (32-34) % RDW (13.2-15.2) % Plt Count (140-440) K/mm3 Eos # (Auto) (0.0-0.4) K/mm3 Baso # (Auto) (0.0-0.1) K/mm3 Seg Neutrophils % (40.0-70.0) % Seg Neutrophils # (1.8-7.7) K/mm3 Chloride (98-107) mmol/L Carbon Dioxide (22-30) mmol/L BUN (9-20) mg/dL Creatinine (0.8-1.3) mg/dL POC Glucose 123 H 143 H 173 H (70-105) mg/dL Calcium (8.4-10.2) mg/dL Troponin T (0.00-0.029) ng/mL 07/09/20 07/09/20 07/09/20 Range/Units 07:25 07:25 10:50 WBC 17.6 H (4.5-11.0) K/mm3 RBC 3.51 L (3.65-5.03) M/mm3 Hgb 9.7 L (11.8-15.2) gm/dl Hct 31.5 L (35.5-45.6) % MCHC 31 L (32-34) % RDW 20.2 H (13.2-15.2) % Plt Count 529 H (140-440) K/mm3 Eos # (Auto) 0.5 H (0.0-0.4) K/mm3 Baso # (Auto) 0.2 H (0.0-0.1) K/mm3 Seg Neutrophils % 77.2 H (40.0-70.0) % Seg Neutrophils # 13.6 H (1.8-7.7) K/mm3 Chloride 111.9 H (98-107) mmol/L Carbon Dioxide 19 L (22-30) mmol/L BUN 55 H (9-20) mg/dL Creatinine 2.5 H 2.5 H (0.8-1.3) mg/dL POC Glucose (70-105) mg/dL Calcium 8.0 L (8.4-10.2) mg/dL Troponin T 0.167 H* D (0.00-0.029) ng/mL 07/09/20 Range/Units 11:10 WBC (4.5-11.0) K/mm3 RBC (3.65-5.03) M/mm3 Hgb (11.8-15.2) gm/dl Hct (35.5-45.6) % MCHC (32-34) % RDW (13.2-15.2) % Plt Count (140-440) K/mm3 Eos # (Auto) (0.0-0.4) K/mm3 Baso # (Auto) (0.0-0.1) K/mm3 Seg Neutrophils % (40.0-70.0) % Seg Neutrophils # (1.8-7.7) K/mm3 Chloride (98-107) mmol/L Carbon Dioxide (22-30) mmol/L BUN (9-20) mg/dL Creatinine (0.8-1.3) mg/dL POC Glucose 171 H (70-105) mg/dL Calcium (8.4-10.2) mg/dL Troponin T (0.00-0.029) ng/mL
[2020-07-09 11:51] LABS: Hematocrit 32.7 % (35.5-45.6); Hemoglobin 9.9 gm/dl (11.8-15.2); Red Cell Distribution Width 20.5 % (13.2-15.2)
[2020-07-09 12:01] LABS: INR 1.46 (0.87-1.13)
[2020-07-09 13:58] VITALS: BP 125/78
[2020-07-09] MEDS ORDERED: METOPROLOL TARTRATE 25 MG TAB PO SCH (14:00)
--- NOTE | 2020-07-09 14:01 | Discharge Summary ---
Providers - Providers Date of Admission: 07/02/20 11:28 Date of discharge: 07/09/20 Attending physician: JAIME OCONNOR 07/02/20 01:23 Consult to Dietitian/Nutrition [CONS] Routine Physician Instructions: Reason For Exam: Reason for Consult: Diet education Consult to Physician [CONS] Routine Comment: Consulting Provider: LOPEZ MONTERO Physician Instructions: Reason For Exam: Septic shock,colitis 07/02/20 05:24 Consult to Physician [CONS] Routine Comment: Consulting Provider: LUIS ARMANDO BUTCHER Physician Instructions: Reason For Exam: FRED Consult to Physician [CONS] Routine Comment: Consulting Provider: RICARDA CARLSON Physician Instructions: Reason For Exam: Colitis, UTI. Septic shock 07/02/20 07:50 Consult to Wound/ET Nurse [CONS] Routine Reason For Exam: wound eval 07/02/20 10:27 Consult to Physician [CONS] Routine Comment: Consulting Provider: MARGO AHMADI Physician Instructions: Reason For Exam: elevated trop 07/02/20 12:27 Consult to Physician [CONS] Routine Comment: Consulting Provider: ARIANA SETH Physician Instructions: Reason For Exam: septic shock 07/03/20 23:42 Midline [Consult to PICC Line RN] [CONS] Routine Reason For Exam: no iv access Type Line:: Midline Primary care physician: SHEILA MINAYA Hospitalization Reason for admission: Not feeling well, leukocytosis, hypotension Condition: Fair Pertinent studies: CT of the abdomen and pelvis reveals chronic colitis greater distally, mild ascites, pleural fluid and soft tissue anasarca. Calcified gallstone, 7 mm nonobstructive left renal stone. Sacral decubitus ulcer with suspected underlying osteomyelitis. Chest x-ray CT chest echocardiogram Hospital course: 70-year-old -[place] male patient [facility] with history of paraplegia, dementia, sacral decubitus ulcer, peripheral vascular disease, diastolic heart failure, atrial fibrillation on chronic anticoagulation with Eliquis osteomyelitis of the sacral vertebrae, hypertension and anemia was admitted through ER with not doing well. Abnormal labs like leukocytosis with WBC of 43.2, hypotension. Patient was initially evaluated and noted to be in septic shock with sepsis secondary to UTI, sacral decubitus ulcer. Patient was managed appropriately and was evaluated by ID, cardiology, pulmonary, nephrology. Medications optimized. Patient also has C. difficile colitis on contact isolation and oral vancomycin per ID. Patient received wound care. Patient also has history of A. fib rate controlled receiving beta-blockers and Eliquis. Patient symptoms slowly but gradually improved Today patient is comfortable no new complaints All the consultants cleared for discharge and follow-up per schedule Vital signs stable, physical examination prior to discharge did not show any new changes Patient is hemodynamically and clinically stable for discharge and transfer to SNF Discharge diagnosis: --A. fib Rate controlled, continue beta-blockers Chronic anticoagulation with Eliquis -- Septic shock Possibly secondary to underlying UTI and colitis. Patient admitted and placed on IV fluid. He has been started on empiric IV antibiotics ID following --Complicated urinary tract infection We will continue on empiric IV antibiotics. Cultures negative to date -- FRED (acute kidney injury) Possibly prerenal./ATN We will continue on IV fluid hydration. Consult placed to nephrology for evaluation. We will monitor BUN and creatinine. -- C. difficile colitis Current Visit: Yes Status: Acute Contact isolation, continue oral fluids, status post IV Vanco and Flagyl , currently on oral vancomycin --Multifocal atrial tachycardia We will continue to monitor on telemetry. -- NSTEMI (non-ST elevated myocardial infarction) Possibly type II troponin leak Consult will be placed to cardiology for evaluation. --Stage IV sacral decubitus ulcers Possibly chronic.,We will continue on empiric IV antibiotics. Will await infectious disease evaluation. -- DVT prophylaxis Patient placed on subcutaneous heparin. Nutrition supplements --Severe malnutrition; hypoalbuminemia nutrition supplements, supportive care Nutrition consult --Full code status Patient is full code. Today patient feels better no new complaints complains of generalized weakness Cleared by cardiology , ID , nephrology for DC and follow-up per schedule all the consultants , stable at discharge DC and transfer to SNF, Stable at discharge Disposition: DC/[place]-[facility] SNF [facility] C[facility] Final Discharge Diagnosis (Prints w/discharge instructions): Sepsis. UTI. C. difficile colitis. Acute kidney injury. Multifocal atrial tachycardia. Atrial fibrillation. Stage IV sacral decubitus ulcer. Non-ST elevation ME type II. Severe malnutrition/hypoalbuminemia Time spent for discharge: 35 minutes Core Measure Documentation - Palliative Care Palliative Care/ Comfort Measures: Not Applicable - Core Measures Any of the following diagnoses?: none Exam - Constitutional Vitals: Temp Pulse Resp BP Pulse Ox 97.8 F 82 16 120/69 96 05/18/21 03:59 07/09/20 05:08 07/09/20 09:00 07/09/20 05:08 07/09/20 03:59 General appearance: Present: no acute distress, well-nourished - EENT Eyes: Present: PERRL, EOM intact - Neck Neck: Present: supple, normal ROM - Respiratory Respiratory effort: normal Respiratory: bilateral: diminished, negative: rales, rhonchi, wheezing - Cardiovascular Rhythm: regular Heart Sounds: Present: S1 & S2 - Extremities Extremities: no ischemia - Abdominal General gastrointestinal: Present: soft, non-tender, non-distended, normal bowel sounds - Integumentary Integumentary: Present: clear, warm - Musculoskeletal Musculoskeletal: strength equal bilaterally, generalized weakness - Psychiatric Psychiatric: other (Minimally communicative) - Neurologic Neurologic: moves all extremities Plan Activity: advance as tolerated, fall precautions Diet: other (Pured diet, ) Wound: per wound nurse instructions Special Instructions: physical therapy Additional Instructions: Contact isolation[C. difficile colitis] handwashing. If the patient has worsening symptoms contact MD or take him to emergency room. May use condom catheter as needed, especially in the setting of sacral decubitus ulcers. Advised to follow all the consultants and PMD per schedule Follow up with: YULIYA PAYNE MD [Staff Physician] - 7 Days SHEILA MINAYA MD [Primary Care Provider] - 3-5 Days MANJIT MORROW MD [Staff Physician] - 7 Days TIARA LOMAS MD [Staff Physician] - 7 Days ELIZABETH RICHARDSON MD [Staff Physician] - 14 Days Prescriptions: Apixaban [Eliquis] 2.5 mg PO BID #60 tablet Metoprolol [Lopressor TAB] 12.5 mg PO Q8HR #90 tablet Famotidine [Pepcid] 20 mg PO QHS #30 tablet Vancomycin HCl 250 mg PO Q6H #26 capsule Ondansetron [Zofran Odt] 4 mg PO Q8HR #21 tab.rapdis
--- NOTE | 2020-07-09 17:40 | Electrocardiograph Report ---
[facility] Test Date: 2020-07-06 Test Time: 10:20:11 Pat Name: EUGENIA LIZAMA JR Department: Room: A380 1 Gender: M [employer] Worker: BG : 1950 Requested By: BERNICE NGUYEN Order Number: [id number] Reading MD: Radha Hernandez Measurements Intervals [place] Rate: 81 P: -35 NE: 69 QRS: 6 QRSD: 98 T: 148 QT: 459 QTc: 564 Interpretive Statements Probable atrial fibrillation Low voltage, extremity leads Abnormal T, consider ischemia, anterior leads Prolonged QT interval Compared to ECG 07/02/2020 00:18:51 No significant change Electronically Signed On 07-09-2020 17:40:31 EDT by Radha Hernandez
== END 2020-07-09 17:07 | DRG 871 ==
LOC: ED 19:29 → CC1 07-02 00:57 → OBSVTOIN 07-02 11:28 → IMCU 07-02 23:40 → 3A 07-04 17:35
PROVIDERS: ADMIT Internal Medicine Geriatric Medicine; ATTEND Internal Medicine
PROC: 02HV33Z Insertion of Infusion Device into Superior Vena Cava, Percutaneous Approach (ICD-10-PCS; principal; 2020-07-02)
DX: A41.9 Sepsis, unspecified organism (principal); L89.154 Pressure ulcer of sacral region, stage 4; N17.0 Acute kidney failure with tubular necrosis; R65.21 Severe sepsis with septic shock; E43 Unspecified severe protein-calorie malnutrition; I21.A1 Myocardial infarction type 2; A04.72 Enterocolitis due to Clostridium difficile, not specified as recurrent; N39.0 Urinary tract infection, site not specified; I47.1 Supraventricular tachycardia; M46.28 Osteomyelitis of vertebra, sacral and sacrococcygeal region; M86.9 Osteomyelitis, unspecified; G82.20 Paraplegia, unspecified; I50.30 Unspecified diastolic (congestive) heart failure; J96.10 Chronic respiratory failure, unspecified whether with hypoxia or hypercapnia; I13.0 Hypertensive heart and chronic kidney disease with heart failure and stage 1 through stage 4 chronic kidney disease, or unspecified chronic kidney disease; E87.2 Acidosis; Z20.822 Contact with and (suspected) exposure to COVID-19; I73.9 Peripheral vascular disease, unspecified; F03.90 Unspecified dementia, unspecified severity, without behavioral disturbance, psychotic disturbance, mood disturbance, and anxiety; D72.829 Elevated white blood cell count, unspecified; E88.09 Other disorders of plasma-protein metabolism, not elsewhere classified; I48.91 Unspecified atrial fibrillation; K52.9 Noninfective gastroenteritis and colitis, unspecified; N18.9 Chronic kidney disease, unspecified; D64.9 Anemia, unspecified; I50.9 Heart failure, unspecified; E86.1 Hypovolemia; I10 Essential (primary) hypertension; L89.219 Pressure ulcer of right hip, unspecified stage; L89.029 Pressure ulcer of left elbow, unspecified stage; Z79.899 Other long term (current) drug therapy; Z79.891 Long term (current) use of opiate analgesic; Z79.01 Long term (current) use of anticoagulants; Z79.82 Long term (current) use of aspirin; Z68.21 Body mass index [BMI] 21.0-21.9, adult
CPT/HCPCS: 36415; 71045; 71250; 74176; 80048; 80053; 80061; 80202; 81001; 82140; 82565; 82570; 82962; 83735; 84100; 84145; 84300; 84484; 85007; 85025; 85027; 85610; 85730; 87040; 87086; 87493; 93005; 93306; 96365; 96372; G0378; A9270-GY; J0692; J1644; J1815; J3370; J3475; J7030; J7050; J7070; U0003

== ENCOUNTER 2020-07-24 12:25 | Inpatient (IN) | payer MEDICARE ==
[2020-07-24] MEDS ORDERED: CEFEPIME/NS 2 GM/100 ML 2 GM/100 ML BAG IV ONE (12:37)
[2020-07-24] MEDS ORDERED: SODIUM CHLORIDE 0.9% 1000 ML IV SOLN IV ONE (12:37)
[2020-07-24] MEDS ORDERED: metroNIDAZOLE/NS 500 MG/100 ML 500 MG/100 ML BAG IV ONE (12:37)
[2020-07-24] MEDS ORDERED: VANCOMYCIN 1,500 MG in SODIUM CHLORIDE 0.9% 500 ML 500 ML IV ONE (12:37)
[2020-07-24] MEDS ORDERED: SODIUM CHLORIDE 0.9% 1000 ML 2,000 ML ONE (12:41)
[2020-07-24] MEDS ORDERED: VANCOMYCIN PHARMACY TO DOSE IV SCH (13:00)
[2020-07-24] MEDS ORDERED: NORepinephrine/NS 4 MG-250 ML 4 MG/250 ML BAG IV SCH (13:00)
[2020-07-24 13:10] LABS: Basophils % (Auto) 0.3 % (0.0-1.8); Eosinophils % (Auto) 0.3 % (0.0-4.3); Lymphocytes # (Auto) 0.8 K/mm3 (1.2-5.4); Lymphocytes % (Auto) 8.1 % (13.4-35.0); Mean Corpuscular HGB Conc 30 % (32-34); Mean Corpuscular Volume 94 fl (84-94); Monocytes # (Auto) 0.5 K/mm3 (0.0-0.8); Monocytes % (Auto) 4.5 % (0.0-7.3); Platelet Count 625 K/mm3 (140-440); Red Blood Count 2.97 M/mm3 (3.65-5.03)
[2020-07-24 13:16] LABS: Hematocrit 27.8 % (35.5-45.6); Hemoglobin 8.2 gm/dl (11.8-15.2)
[2020-07-24 13:24] LABS: INR 1.15 (0.87-1.13)
[2020-07-24 13:25] LABS: Partial Thromboplastin Time 42.4 Sec. (24.2-36.6)
[2020-07-24 13:33] LABS: C-Reactive Protein 5.2 mg/dL (0.00-1.30)
[2020-07-24 13:34] LABS: Alanine Aminotransferase 11 units/L (7-56); Albumin 1.9 g/dL (3.9-5); BUN/Creatinine Ratio 13; Blood Urea Nitrogen 41 mg/dL (9-20); Calcium 7.7 mg/dL (8.4-10.2); Hemolysis Index 15
[2020-07-24 13:50] LABS: Chol/HDL Ratio 1.61 %; HDL Cholesterol 60 mg/dL (40-59); LDL Cholesterol,Direct 26 mg/dL (50-130)
--- NOTE | 2020-07-24 14:04 | XRay Report ---
CHEST 1 VIEW 07/24/2020 12:57 PM INDICATION / CLINICAL INFORMATION: sepsis. COMPARISON: None available. FINDINGS: Despite several attempts the patient is significantly rotated for this study. SUPPORT DEVICES: None. HEART / MEDIASTINUM: No significant abnormality. LUNGS / PLEURA: There is a large right pleural effusion. There is volume loss on the right with some shift of mediastinum to the right. There is a small left pleural effusion. No pneumothorax. There maribell ears to be some aerated lung centrally on the right. ADDITIONAL FINDINGS: No significant additional findings. IMPRESSION: 1. Study is limited by patient position. There is a right pleural effusion. There is some volume loss on the right with shift of mediastinum toward the right. There is a small left pleural effusion. Signer Name: Magdaleno Hay MD Signed: 07/24/2020 2:00 PM Workstation Name: [id number]
--- NOTE | 2020-07-24 14:06 | Emergency Department Report ---
HPI - General Chief Complaint: Dyspnea/Respdistress Time Seen by Provider: 07/24/20 12:44 - HPI HPI: 70-year-old male with history of chronic respiratory failure, hypertension, and atrial fibrillation on Eliquis brought by EMS from his half-way due to respiratory failure. Apparently he was being treated there for a sacral decubitus ulcer infection with osteomyelitis with IV vancomycin. Initially EMS says they were called because the patient displayed agonal respirations. However when they arrived the patient was breathing but with low oxygen saturation. He was satting 89% on 15 L of oxygen. His oxygen saturation improved to 100% on nonrebreather. He was noted to be severely hypotensive with a blood pressure of 60 systolic and with severely altered mental status, barely responsive to pain. Further details of the HPI are severely limited due to the patient's clinical condition and lack of available information. ED Past Medical Hx - Past Medical History Hx Hypertension: Yes Hx Congestive Heart Failure: Yes Additional medical history: Pressure ulcers to sacrum, hip, knee. Chronic respiratory failure. Atrial fibrillation. - Surgical History Additional Surgical History: Unable to obtain - Social History Smoking Status: Never Smoker Substance Use Type: None - Medications Home Medications: Home Medications Medication Instructions Recorded Confirmed Last Taken Type Acetaminophen [Aphen] 325 mg PO PRN PRN 07/02/20 07/24/20 Unknown History Ascorbic Acid/Ascorbate Sodium 500 mg PO DAILY 07/02/20 07/24/20 Unknown History [Vit C-Alyce Hips 500 mg Chew Tb] AtorvaSTATin 10 mg PO QHS 07/02/20 07/24/20 Unknown History Diclofenac 1% [Diclofenac 1% 1 applic TP Q6HR 07/02/20 07/24/20 Unknown History topical gel] Epoetin Baljeet [Procrit] 3,000 unit SQ QWEEK 07/02/20 07/24/20 Unknown History Heparin Sodium,Porcine [Heparin 5,000 unit SUB-Q Q8HR 07/02/20 07/24/20 Unknown History Sodium] Ipratropium/Albuterol Sulfate 1 ampul IH Q6HR 07/02/20 07/24/20 Unknown History [DUONEB *Not for PRN Use*] Multivit-Minerals/Folic Acid 1 tab PO DAILY 07/02/20 07/24/20 Unknown History [Adult One Daily Multivit Tab] PANTOPRAZOLE SODIUM (nf) [Protonix 40 mg PO QAM 07/02/20 07/24/20 Unknown History GRANULES] Zinc Sulfate 220 mg PO DAILY 07/02/20 07/24/20 Unknown History allopurinoL [Zyloprim] 100 mg PO QDAY 07/02/20 07/24/20 Unknown History Apixaban [Eliquis] 2.5 mg PO BID #60 tablet 07/09/20 07/24/20 Unknown Rx Famotidine [Pepcid] 20 mg PO QHS #30 tablet 07/09/20 07/24/20 Unknown Rx Metoprolol [Lopressor TAB] 12.5 mg PO Q8HR #90 tablet 07/09/20 07/24/20 Unknown Rx Ondansetron [Zofran Odt] 4 mg PO Q8HR #21 tab.rapdis 07/09/20 07/24/20 Unknown Rx Vancomycin HCl 250 mg PO Q6H #26 capsule 07/09/20 07/24/20 Unknown Rx ED Review of Systems ROS: Stated complaint: WEAKNESS Other details as noted in HPI Comment: Unobtainable due to pts medical conditions Physical Exam - Physical Exam Physical Exam: GENERAL: Ill-appearing elderly man in mild distrress. Eyes closed and u nresponsive to painful stimulus. HEENT: Normocephalic. No obvious trauma. Very dry mucous membranes. EYES: Eyes closed. NECK: Supple. Trachea is midline. LUNGS: Tachypneic. Coarse breath sounds throughout which are difficult to auscultate because of the patient's habitus. There is equal chest rise bilaterally. HEART/CARDIOVASCULAR: Regular rate and rhythm. ABDOMEN: Abdomen is sdistended but soft.. No significant tenderness, guarding or rebound. SKIN: Skin is warm and dry NEURO: Patient is obtunded with GCS alternating between 3 and 6 when he intermittently withdraws to pain MUSCULOSKELETAL: Contracted lower extremities and less so in the upper extremities. BACK/SPINE: Multiple full sacral decubitus ulcers which are covered with dressings. There is no significant perineal erythema or warmth ED Medical Decision Making - Lab Data Result diagrams: 07/24/20 13:06 07/24/20 15:14 Laboratory Results - last 24 hr 07/24/20 07/24/20 07/24/20 12:52 13:06 13:06 WBC 10.1 RBC 2.97 L Hgb 8.2 L Hct 27.8 L MCV 94 MCH 28 MCHC 30 L RDW 22.0 H Plt Count 625 H Lymph % (Auto) 8.1 L [place] % (Auto) 4.5 Eos % (Auto) 0.3 Baso % (Auto) 0.3 Lymph # (Auto) 0.8 L [place] # (Auto) 0.5 Eos # (Auto) 0.0 Baso # (Auto) 0.0 Seg Neutrophils % 86.8 H Seg Neutrophils # 8.8 H PT INR APTT D-Dimer ABG pH 6.876 L POC ABG pCO2 86.3 H POC ABG pO2 79.7 L POC ABG HCO3 15.6 ABG O2 Saturation 91.9 POC ABG Base Excess -17.0 ABG Hemoglobin 7.9 L ABG Oxyhemoglobin 91.1 L ABG Methemoglobin 0 ABG Sodium 147.1 H ABG Potassium 4.5 ABG Chloride 125.0 H ABG Glucose 186 H Carboxyhemoglobin 0.9 FiO2 % 100.0 Sodium 147 H Potassium 5.0 Chloride 120.1 H Carbon Dioxide 18 L Anion Gap 14 BUN 41 H Creatinine 3.2 H Estimated GFR 23 BUN/Creatinine Ratio 13 Glucose 191 H Lactic Acid Calcium 7.7 L Ferritin Total Bilirubin < 0.20 AST 19 ALT 11 Alkaline Phosphatase 91 Lactate Dehydrogenase Troponin T 0.293 H* C-Reactive Protein Total Protein 6.6 Albumin 1.9 L Albumin/Globulin Ratio 0.4 Triglycerides 48 Cholesterol 97 LDL Cholesterol Direct 26 L HDL Cholesterol 60 H Cholesterol/HDL Ratio 1.61 Procalcitonin Arterial Blood Glucose 186 H Arterial Blood Ionized Calcium 4.9 07/24/20 07/24/20 07/24/20 13:06 13:06 13:06 WBC RBC Hgb Hct MCV MCH MCHC RDW Plt Count Lymph % (Auto) [place] % (Auto) Eos % (Auto) Baso % (Auto) Lymph # (Auto) [place] # (Auto) Eos # (Auto) Baso # (Auto) Seg Neutrophils % Seg Neutrophils # PT 16.6 H INR 1.15 H APTT 42.4 H D-Dimer 2527.04 H ABG pH POC ABG pCO2 POC ABG pO2 POC ABG HCO3 ABG O2 Saturation POC ABG Base Excess ABG Hemoglobin ABG Oxyhemoglobin ABG Methemoglobin ABG Sodium ABG Potassium ABG Chloride ABG Glucose Carboxyhemoglobin FiO2 % Sodium Potassium Chloride Carbon Dioxide Anion Gap BUN Creatinine Estimated GFR BUN/Creatinine Ratio Glucose Lactic Acid 2.20 H* Calcium Ferritin Total Bilirubin AST ALT Alkaline Phosphatase Lactate Dehydrogenase Troponin T C-Reactive Protein Total Protein Albumin Albumin/Globulin Ratio Triglycerides Cholesterol LDL Cholesterol Direct HDL Cholesterol Cholesterol/HDL Ratio Procalcitonin 0.45 Arterial Blood Glucose Arterial Blood Ionized Calcium 07/24/20 07/24/20 13:06 13:06 WBC RBC Hgb Hct MCV MCH MCHC RDW Plt Count Lymph % (Auto) [place] % (Auto) Eos % (Auto) Baso % (Auto) Lymph # (Auto) [place] # (Auto) Eos # (Auto) Baso # (Auto) Seg Neutrophils % Seg Neutrophils # PT INR APTT D-Dimer ABG pH POC ABG pCO2 POC ABG pO2 POC ABG HCO3 ABG O2 Saturation POC ABG Base Excess ABG Hemoglobin ABG Oxyhemoglobin ABG Methemoglobin ABG Sodium ABG Potassium ABG Chloride ABG Glucose Carboxyhemoglobin FiO2 % Sodium Potassium Chloride Carbon Dioxide Anion Gap BUN Creatinine Estimated GFR BUN/Creatinine Ratio Glucose Lactic Acid Calcium Ferritin 1126.0 H Total Bilirubin AST ALT Alkaline Phosphatase Lactate Dehydrogenase 192 H Troponin T C-Reactive Protein 5.20 H Total Protein Albumin Albumin/Globulin Ratio Triglycerides Cholesterol LDL Cholesterol Direct HDL Cholesterol Cholesterol/HDL Ratio Procalcitonin Arterial Blood Glucose Arterial Blood Ionized Calcium - EKG Data -: EKG Interpreted by Me - EKG Data 07/24/20 14:06 Atrial fibrillation. Bradycardic. Normal axis. Otherwise normal intervals. No significant ST segment abnormalities. Though difficult to interpret given low voltage EKG. - Medical Decision Making 70-year-old male with chronic respiratory failure brought in by EMS from his half-way due to low blood pressure of 60 systolic, bradycardia with heart rate in the 50s, and respiratory failure satting 89% on 15 L. Action saturation improved to 100% on nonrebreather. On initial assessment, the patient is obtunded and unresponsive with GCS varying from 3-6 when he intermittently will somewhat withdraw to pain. His physical exam reveals very dry mucous membranes. Lung sounds are coarse throughout but are difficult to auscultate. He has contracted peripheral extremities. His abdomen is distended but soft. He has several sacral decubitus ulcers which are covered with various dressings. He is noted to have a blood pressure of 54/28. He is bradycardic in the 40s. He has a rectal temperature of 88 degrees. Suspected sepsis order set was initiated including a full set of labs, cultures. 30 mL/kg of IV fluid was ordered as well as a Levophed drip to increase his blood pressure. Bare hugger was initiated to increase his central temperature as well. Broad-spectrum IV vancomycin and cefepime have been ordered. Will order ABG and speak to family before proceeding with intubation given that the patient is critically ill and I want to confirm the patient's wishes before proceeding. At 12:57 PM I spoke with Rafia Delgado, the patient's power of contract attorney over the telephone. I explained the patient's current clinical condition including the fact that he is critically ill requiring advanced interventions. Given the patient's critical illness, which I explained is likely due to infection, she stated that she did not feel he would want extraordinary measures performed in light of a very poor prognosis. She did say that before changing his CODE STATUS she would want to speak to the patient's family and will call back. We will therefore hold off on intubation and provide oxygen via nonrebreather. ABG returned revealing several abnormalities including hypercarbic hypoxic rerspiratory failure. In addition, labs returned revealing hypernatremia, hyperchloremia, anemia with hemoglobin of 8.2, elevated troponin, elevated D- dimer. The patient's oxygen saturation remains 100% on nonrebreather At 1:53 PM I again spoke with the patient's power of contract attorney, Rafia Delgado, over the phone. She stated that after conferring with the patient's brother and sister, she feels that he would not want aggressive measures taken at this time. She confirmed in the presence of both the charge nurse and another physician that she wanted to change his CODE STATUS to DNR/DNI. She also stated that she wanted comfort care measures initiated only. The appropriate paperwork was filled out and signed. Will admit the patient to on-call hospitalist for further comfort care. Critical Care Time: Yes Critical care time in (mins) excluding proc time.: 35 Critical care attestation.: If time is entered above; I have spent that time in minutes in the direct care of this critically ill patient, excluding procedure time. Critical care time spent managing several life-threatening conditions including interventions to treat and assess hypercapnic hypoxic respiratory failure, and septic shock requiring vasopressors Critical Care Time: 35 ED Disposition Clinical Impression: Hypernatremia, Septic shock, Sacral osteomyelitis, Acute hypoxemic respiratory failure, Elevated troponin Disposition: DC-[id number] OP ADMIT IP TO THIS HOSP Is pt being admited?: Yes Condition: Critical
--- NOTE | 2020-07-24 14:17 | History and Physical Report ---
History of Present Illness Chief complaint: Unresponsive History of present illness: 70 YO Male Half-Way Facility Resident with HTN, CHF, Atrial Fib on therapeutic anticoagulation with Eliquis, Osteomyelitis on IV antibiotic therapy, Sacral Decubitus Ulcer present on admission, GERD, Paraplegia, Gout presents to ED for evaluation. Patient is stuporous with diminished cognition at the time of my evaluation and is unable to provide history. Patient history provided by EMS staff, ED staff, as well as the patient medical decision maker who was at bedside during exam and interview. As per report from medical decision-maker, the patient has experienced a general decline in his health over the past 1 month with progressively worsening symptoms over the same timeframe. She was notified by alf facility staff that the patient had experienced worsening shortness of breath. EMS was notified and upon arrival the patient was found to be in respiratory distress and placed on a percent oxygen via nonrebreather mask and transported to [facility] for further care and evaluation of the aforementioned symptoms. The patient was seen and evaluated in the emergency department. All lab and imaging studies reviewed. The patient was found to have acute hypoxemic respiratory failure suspected secondary to probable coronavirus infection, sepsis complicated by shock. Patient is hypotensive with a systolic blood pressure in the 50s. Advanced care planning conducted in ED. Patient found to have poor prognosis. Patient medical decision maker acknowledges understanding poor prognosis and elects to make patient DNR and initiate comfort care measures. Past History Past Medical History: GERD, heart failure, hypertension Past Surgical History: No surgical history, Other (Reviewed) Social history: single. denies: smoking, alcohol abuse, prescription drug abuse Family history: hypertension Medications and Allergies Allergies Allergy/AdvReac Type Severity Reaction Status Date / Time No Known Allergies Allergy Verified 07/01/20 23:23 Home Medications Medication Instructions Recorded Confirmed Last Taken Type Acetaminophen [Aphen] 325 mg PO PRN PRN 07/02/20 07/02/20 Unknown History Ascorbic Acid/Ascorbate Sodium 500 mg PO DAILY 07/02/20 07/02/20 Unknown History [Vit C-Alyce Hips 500 mg Chew Tb] AtorvaSTATin 10 mg PO QHS 07/02/20 07/02/20 Unknown History Diclofenac 1% [Diclofenac 1% 1 applic TP Q6HR 07/02/20 07/02/20 Unknown History topical gel] Epoetin Baljeet [Procrit] 3,000 unit SQ QWEEK 07/02/20 07/02/20 Unknown History Heparin Sodium,Porcine [Heparin 5,000 unit SUB-Q Q8HR 07/02/20 07/02/20 Unknown History Sodium] Ipratropium/Albuterol Sulfate 1 ampul IH Q6HR 07/02/20 07/02/20 Unknown History [DUONEB *Not for PRN Use*] Multivit-Minerals/Folic Acid 1 tab PO DAILY 07/02/20 07/02/20 Unknown History [Adult One Daily Multivit Tab] PANTOPRAZOLE SODIUM (nf) [Protonix 40 mg PO QAM 07/02/20 07/02/20 Unknown History GRANULES] Zinc Sulfate 220 mg PO DAILY 07/02/20 07/02/20 Unknown History allopurinoL [Zyloprim] 100 mg PO QDAY 07/02/20 07/02/20 Unknown History Apixaban [Eliquis] 2.5 mg PO BID #60 tablet 07/09/20 Unknown Rx Famotidine [Pepcid] 20 mg PO QHS #30 tablet 07/09/20 Unknown Rx Metoprolol [Lopressor TAB] 12.5 mg PO Q8HR #90 tablet 07/09/20 Unknown Rx Ondansetron [Zofran Odt] 4 mg PO Q8HR #21 tab.rapdis 07/09/20 Unknown Rx Vancomycin HCl 250 mg PO Q6H #26 capsule 07/09/20 Unknown Rx Active Meds: Active Medications Norepinephrine (Levophed Drip 4 Mg/Ns 250 Ml) 4 mg in 250 mls @ 7.5 mls/hr IV TITR HARLEY; Protocol Last Admin: 07/24/20 13:51 Dose: 2 mcg/min, 7.5 mls/hr Documented by: Vancomycin HCl 1,750 mg/ (Sodium Chloride) 535 mls @ 333.333 mls/hr IV ONCE ONE Stop: 07/24/20 16:36 Review of Systems ROS unobtainable: due to mental status Exam - Constitutional General appearance: Present: severe distress - EENT Eyes: Present: miosis ENT: hearing decreased - Neck Neck: Present: supple, normal ROM - Respiratory Respiratory effort: labored Respiratory: bilateral: diminished, rhonchi - Cardiovascular Rhythm: regular - Extremities Extremity abnormal: cyanosis, pulses diminished Peripheral Pulses: abnormal (Capillary refill greater than 3.5 seconds) - Abdominal General gastrointestinal: Present: soft, non-distended - Integumentary Integumentary: Present: dry, clammy, decreased turgor - Musculoskeletal Musculoskeletal: generalized weakness - Psychiatric Psychiatric: no appropriate mood/affect, no intact judgment & insight, no memory intact - Neurologic Neurologic: CNII-XII intact, no focal deficits, no moves all extremities, no gait normal HEART Score - HEART Score Troponin: Troponin T 0.293 ng/mL (0.00-0.029) H* 07/24/20 13:06 Results - Labs CBC & Chem 7: 07/24/20 13:06 07/24/20 13:06 Labs: Abnormal lab results 07/24/20 07/24/20 07/24/20 Range/Units 12:52 13:06 13:06 RBC 2.97 L (3.65-5.03) M/mm3 Hgb 8.2 L (11.8-15.2) gm/dl Hct 27.8 L (35.5-45.6) % MCHC 30 L (32-34) % RDW 22.0 H (13.2-15.2) % Plt Count 625 H (140-440) K/mm3 Lymph % (Auto) 8.1 L (13.4-35.0) % Lymph # (Auto) 0.8 L (1.2-5.4) K/mm3 Seg Neutrophils % 86.8 H (40.0-70.0) % Seg Neutrophils # 8.8 H (1.8-7.7) K/mm3 PT (12.2-14.9) Sec. INR (0.87-1.13) APTT (24.2-36.6) Sec. D-Dimer (0-234) ng/mlDDU ABG pH 6.876 L (7.320-7.450) POC ABG pCO2 86.3 H (32.0-48.0) mmHg POC ABG pO2 79.7 L (83-108) mmHg ABG Hemoglobin 7.9 L (12.0-17.5) ABG Oxyhemoglobin 91.1 L (94-98) ABG Sodium 147.1 H (136.0-145.0) mmol/L ABG Chloride 125.0 H (98-107) mmol/L ABG Glucose 186 H (65-95) mg/dL Sodium 147 H (137-145) mmol/L Chloride 120.1 H (98-107) mmol/L Carbon Dioxide 18 L (22-30) mmol/L BUN 41 H (9-20) mg/dL Creatinine 3.2 H (0.8-1.3) mg/dL Glucose 191 H (75-100) mg/dL Lactic Acid (0.7-2.0) mmol/L Calcium 7.7 L (8.4-10.2) mg/dL Ferritin (30.0-300.0) ng/mL Lactate Dehydrogenase (91-180) units/L Troponin T 0.293 H* (0.00-0.029) ng/mL C-Reactive Protein (0.00-1.30) mg/dL Albumin 1.9 L (3.9-5) g/dL LDL Cholesterol Direct 26 L (50-130) mg/dL HDL Cholesterol 60 H (40-59) mg/dL Arterial Blood Glucose 186 H (65-95) mg/dL 07/24/20 07/24/20 07/24/20 Range/Units 13:06 13:06 13:06 RBC (3.65-5.03) M/mm3 Hgb (11.8-15.2) gm/dl Hct (35.5-45.6) % MCHC (32-34) % RDW (13.2-15.2) % Plt Count (140-440) K/mm3 Lymph % (Auto) (13.4-35.0) % Lymph # (Auto) (1.2-5.4) K/mm3 Seg Neutrophils % (40.0-70.0) % Seg Neutrophils # (1.8-7.7) K/mm3 PT 16.6 H (12.2-14.9) Sec. INR 1.15 H (0.87-1.13) APTT 42.4 H (24.2-36.6) Sec. D-Dimer 2527.04 H (0-234) ng/mlDDU ABG pH (7.320-7.450) POC ABG pCO2 (32.0-48.0) mmHg POC ABG pO2 (83-108) mmHg ABG Hemoglobin (12.0-17.5) ABG Oxyhemoglobin (94-98) ABG Sodium (136.0-145.0) mmol/L ABG Chloride (98-107) mmol/L ABG Glucose (65-95) mg/dL Sodium (137-145) mmol/L Chloride (98-107) mmol/L Carbon Dioxide (22-30) mmol/L BUN (9-20) mg/dL Creatinine (0.8-1.3) mg/dL Glucose (75-100) mg/dL Lactic Acid 2.20 H* (0.7-2.0) mmol/L Calcium (8.4-10.2) mg/dL Ferritin (30.0-300.0) ng/mL Lactate Dehydrogenase 192 H (91-180) units/L Troponin T (0.00-0.029) ng/mL C-Reactive Protein 5.20 H (0.00-1.30) mg/dL Albumin (3.9-5) g/dL LDL Cholesterol Direct (50-130) mg/dL HDL Cholesterol (40-59) mg/dL Arterial Blood Glucose (65-95) mg/dL 07/24/20 Range/Units 13:06 RBC (3.65-5.03) M/mm3 Hgb (11.8-15.2) gm/dl Hct (35.5-45.6) % MCHC (32-34) % RDW (13.2-15.2) % Plt Count (140-440) K/mm3 Lymph % (Auto) (13.4-35.0) % Lymph # (Auto) (1.2-5.4) K/mm3 Seg Neutrophils % (40.0-70.0) % Seg Neutrophils # (1.8-7.7) K/mm3 PT (12.2-14.9) Sec. INR (0.87-1.13) APTT (24.2-36.6) Sec. D-Dimer (0-234) ng/mlDDU ABG pH (7.320-7.450) POC ABG pCO2 (32.0-48.0) mmHg POC ABG pO2 (83-108) mmHg ABG Hemoglobin (12.0-17.5) ABG Oxyhemoglobin (94-98) ABG Sodium (136.0-145.0) mmol/L ABG Chloride (98-107) mmol/L ABG Glucose (65-95) mg/dL Sodium (137-145) mmol/L Chloride (98-107) mmol/L Carbon Dioxide (22-30) mmol/L BUN (9-20) mg/dL Creatinine (0.8-1.3) mg/dL Glucose (75-100) mg/dL Lactic Acid (0.7-2.0) mmol/L Calcium (8.4-10.2) mg/dL Ferritin 1126.0 H (30.0-300.0) ng/mL Lactate Dehydrogenase (91-180) units/L Troponin T (0.00-0.029) ng/mL C-Reactive Protein (0.00-1.30) mg/dL Albumin (3.9-5) g/dL LDL Cholesterol Direct (50-130) mg/dL HDL Cholesterol (40-59) mg/dL Arterial Blood Glucose (65-95) mg/dL Assessment and Plan - Patient Problems (1) Acute hypoxemic respiratory failure Current Visit: Yes Status: Acute Plan to address problem: Patient initiated on comfort care measures. As per family the request the patient is DNR. Supplemental oxygen, supportive care, pain control. (2) Toxic encephalopathy Current Visit: Yes Status: Acute Plan to address problem: Comfort measures initiated. Pain control, supportive care. (3) Sacral osteomyelitis Current Visit: No Status: Acute Plan to address problem: Comfort care measures initiated. Pain control, wound care dressing as per nursing care protocol. Supportive care. (4) Septic shock Current Visit: No Status: Acute Plan to address problem: Comfort measures initiated, supportive care. (5) Acute kidney injury (FRED) with acute tubular necrosis (ATN) Current Visit: Yes Status: Acute Plan to address problem: Comfort care measures, pain control. (6) Advance care planning Current Visit: Yes Status: Acute Plan to address problem: Disease education conducted, care plan discussed, prognosis discussed. After prolonged discussion regarding patient prognosis the patient medical decision maker elects to make patient DNR. Patient caregiver request initiation of comfort measures. Patient medical decision maker acknowledges understanding and agreement with care plan. +30 minutes.
[2020-07-24] MEDS ORDERED: ALBUTEROL 2.5 MG/3 ML NEBU IH PRN (14:28)
[2020-07-24] MEDS ORDERED: ACETAMINOPHEN 325 MG TAB PO PRN ×3 (14:30→15:55)
[2020-07-24] MEDS ORDERED: GLYCOPYRROLATE 0.4 MG/2 ML INJ IV PRN (14:44)
[2020-07-24] MEDS ORDERED: LORazepam 2 MG/ML VIAL IV PRN (14:44)
[2020-07-24] MEDS ORDERED: LORazepam 2 MG/ML VIAL IV SCH (15:00)
[2020-07-24] MEDS ORDERED: VANCOMYCIN 1,750 MG in SODIUM CHLORIDE 0.9% 500 ML 500 ML IV ONE (15:00)
[2020-07-24] MEDS ORDERED: ONDANSETRON 4 MG/2 ML INJ IV PRN (15:00)
[2020-07-24] MEDS ORDERED: MORPHINE 4 MG/1 ML INJ IV SCH (15:00)
[2020-07-24] MEDS ORDERED: fentaNYL DRIP Premix 2,000 MCG/100 ML BAG IV SCH (15:00)
[2020-07-24] MEDS ORDERED: HYDROmorphone 1 MG/1 ML INJ IV PRN (15:55)
[2020-07-24 16:03] LABS: C-Reactive Protein 5.2 mg/dL (0.00-1.30)
[2020-07-24 18:35] VITALS: BP 64/28
[2020-07-24] MEDS ORDERED: ONDANSETRON 4 MG ODT TAB PO SCH (22:00)
[2020-07-24] MEDS ORDERED: HEPARIN 5,000 UNIT/1 ML VIAL SUB-Q SCH (22:00)
--- NOTE | 2020-07-25 01:46 | Death Note ---
Note Date of : 07/25/20 Time of : 01:10 Time Pronounced: 01:20 - Preliminary Cause of (problem) (1) Acute hypoxemic respiratory failure Preliminary cause of Called by the nurse that the patient is not breathing. I examined the patient patient is pulseless patient has no BP no reflex. Patient at 1:10 AM due to cardiopulmonary arrest, respiratory failure. Patient is DNR and patient is on comfort measures. Family at the bedside (2) Acute kidney injury (FRED) with acute tubular necrosis (ATN) Preliminary cause of (3) Sacral osteomyelitis Preliminary cause of (4) Septic shock Preliminary cause of (5) Toxic encephalopathy Preliminary cause of
--- NOTE | 2020-07-26 09:52 | Electrocardiograph Report ---
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
== END 2020-07-25 04:23 | DRG 871 ==
LOC: ED 12:25 → 3A 14:28 → CC1 16:02 → 3A 16:32
PROVIDERS: ADMIT Internal Medicine; ATTEND Internal Medicine
PROC: 4A033R1 Measurement of Arterial Saturation, Peripheral, Percutaneous Approach (ICD-10-PCS; principal; 2020-07-24)
DX: A41.9 Sepsis, unspecified organism (principal); R65.21 Severe sepsis with septic shock; G92 Toxic encephalopathy; N17.0 Acute kidney failure with tubular necrosis; J96.01 Acute respiratory failure with hypoxia; M46.28 Osteomyelitis of vertebra, sacral and sacrococcygeal region; E87.0 Hyperosmolality and hypernatremia; G82.20 Paraplegia, unspecified; I48.91 Unspecified atrial fibrillation; I50.9 Heart failure, unspecified; I11.0 Hypertensive heart disease with heart failure; R77.8 Other specified abnormalities of plasma proteins; Z66 Do not resuscitate; K21.9 Gastro-esophageal reflux disease without esophagitis; M10.9 Gout, unspecified; Z82.49 Family history of ischemic heart disease and other diseases of the circulatory system; I46.9 Cardiac arrest, cause unspecified
CPT/HCPCS: 36415; 71045; 80053; 80061; 82140; 82728; 82805; 82947; 83615; 84145; 84484; 85025; 85379; 85610; 85730; 86140; 86850; 86900; 86901; 87040; 93005; 96361; 96365; G0378; J0692; J2270; J3370; J7030; J7040